=== PATIENT | male | born 1965 | race Caucasian/White ===

== ENCOUNTER → 2017-12-24 | Outpatient (CLI) | payer OTHER ==
--- NOTE | 2017-12-26 08:23 | MR ---
EXAMINATION TYPE: MR kristyn/pao wo con DATE OF EXAM: 12/24/2017 9:34 PM COMPARISON: 03/02/2014 HISTORY: Neck pain, headaches, BUE weakness, LBP Multiplanar MultiSpin echo imaging of the cervical spine was performed. C2-C3: No evidence for degenerative disc disease. No disc bulge/herniation or protrusion. No Canal stenosis. Foramina are patent bilaterally. C3-C4: Mild disc desiccation noted. Posterocentral disc bulge unchanged from prior study. Mild efface ment ventral thecal sac. No evidence for central stenosis or rayna disc herniation. Degenerative campbell ge cervical apophyseal joints with mild left foraminal encroachment. C4-C5: Mild disc desiccation. Posterocentral disc protrusion effaces the ventral thecal sac. No evide nce for central stenosis or cord contact. Mild left foraminal encroachment noted. C5-C6: Mild disc desiccation noted. Posterocentral disc bulge unchanged from prior study. Mild efface ment ventral thecal sac. No evidence for central stenosis or rayna disc herniation. Degenerative campbell ge cervical apophyseal joints with mild left foraminal encroachment. C6-C7: Mild disc desiccation noted. No disc bulge/herniation or protrusion. No Canal stenosis. Fora sasha are patent bilaterally. C7-T1: No evidence for degenerative disc disease. No disc bulge/herniation or protrusion. No Canal stenosis. Foramina are patent bilaterally. Cervical segments are intact. There is normal alignment. Cervical spinal cord is of normal signal. Craniovertebral junction relationships are within normal limits. IMPRESSION: 1. Multilevel degenerative disc disease essentially stable in appearance. 2. Disc protrusion at C4-5 as discussed. Disc bulging at C3-4 and C5-6. EXAMINATION TYPE: MR kristyn/pao wo con DATE OF EXAM: 12/24/2017 9:34 PM COMPARISON: 03/02/2014 HISTORY: Neck pain, headaches, BUE weakness, LBP Multiplanar, MultiSpin echo imaging of the lumbar spine was performed. L1-L2: Normal disc appearance without desiccation. No herniation, protrusion or disc bulging. No ca nal stenosis is present. Foramina are patent bilaterally. L2-L3: Normal disc appearance without desiccation. No herniation, protrusion or disc bulging. No ca nal stenosis is present. Foramina are patent bilaterally. L3-L4: Normal disc appearance without desiccation. No herniation, protrusion or disc bulging. No ca nal stenosis is present. Foramina are patent bilaterally. L4-L5: Moderate disc desiccation identified. Left paracentral disc protrusion resulting in mild left foraminal encroachment and mild left lateral recess stenosis. No evidence for central canal stenosis. Facet joint arthropathy detected. L5-S1: Normal disc appearance without desiccation. No herniation, protrusion or disc bulging. No ca nal stenosis is present. Foramina are patent bilaterally. Lumbar segments are intact. No paraspinal masses are identified. Conus medullaris has a normal appe arance. Ventral spondylosis noted. IMPRESSION: 1. Disc desiccation with disc protrusion at L4-5. Left lateral recess stenosis and left foraminal enc roachment.
== END | disposition home or self-care (01) ==
LOC: RADMRIMAIN 20:44
PROVIDERS: ATTEND Psychiatry & Neurology Neurology
DX: M50.21 Other cervical disc displacement, high cervical region (principal); M50.30 Other cervical disc degeneration, unspecified cervical region; M51.26 Other intervertebral disc displacement, lumbar region; M48.061 Spinal stenosis, lumbar region without neurogenic claudication
CPT/HCPCS: 72141; 72148

== ENCOUNTER 2019-03-18 23:42 | Inpatient (IN) | payer OTHER ==
--- NOTE | 2019-03-19 00:19 | ED ---
Chest Pain HPI - General Chief Complaint: Chest Pain Stated Complaint: Chest Pain x2 weeks Time Seen by Provider: 03/18/19 23:59 Source: patient Mode of arrival: ambulatory Limitations: no limitations - History of Present Illness Initial Comments: This patient is a 53-year-old man with history of diabetes and of previous coronary artery disease requiring stents. He states that over the past 2 weeks he has been having some left-sided chest pains. He states that family has finally persuaded him to come and have these evaluated. He did have some ass ociated shortness of breath with some these episodes. Patient states that his symptoms have resolved here in the emergency department. MD Complaint: chest pain Onset/Timin -: week(s) Onset: during rest Pain Location: substernal, left chest Severity: moderate Quality: sharp Consistency: intermittent, now resolved Improves With: nothing Worsens With: movement Treatments Prior to Arrival: other (Go) - Related Data Home Medications Medication Instructions Recorded Confirmed Aspirin EC [Ecotrin] 325 mg PO DAILY 08/02/14 03/19/19 INSULIN LISPRO (humaLOG) [humaLOG] 0 units SQ DIRECTED 08/02/14 03/19/19 Metoprolol Tartrate 25 mg PO BID 08/02/14 03/19/19 Simvastatin [Zocor] 40 mg PO HS 08/02/14 03/19/19 metFORMIN HCL [Glucophage] 500 mg PO QID 08/02/14 03/19/19 HYDROcodone/APAP 7.5-325MG [Spencer 1 tab PO TID PRN 05/05/16 03/19/19 7.5-325] Baclofen [Lioresal] 20 tab PO BID PRN 03/19/19 03/19/19 Furosemide [Lasix] 20 tab PO DAILY 03/19/19 03/19/19 Ibuprofen 800 tab PO Q8HR PRN 03/19/19 03/19/19 amLODIPine BESYLATE/BENAZEPRIL 1 tab PO DAILY 03/19/19 03/19/19 [amLODIPine BESYLATE/BENAZEPRIL 5-20 MG] Allergies Allergy/AdvReac Type Severity Reaction Status Date / Time No Known Allergies Allergy Verified 03/18/19 23:48 Review of Systems ROS Statement: Those systems with pertinent positive or pertinent negative responses have been documented in the HPI. ROS Other: All systems not noted in ROS Statement are negative. Constitutional: Denies: fever, chills Respiratory: Denies: cough, dyspnea Cardiovascular: Reports: chest pain, edema. Denies: palpitations, syncope Gastrointestinal: Denies: abdominal pain, nausea, vomiting Genitourinary: Denies: dysuria, hematuria Skin: Denies: rash Neurological: Denies: headache, weakness, numbness EKG Findings - EKG Comments: EKG Findings:: pos possible old anterior infarctt. sible old infarc - EKG Results: EKG: interpreted by TALITA, sinus rhythm (rate 81 BPM), normal axis - Blocks, Andale, Hypertrophy, ST Abn: Repolarization changes or abnormalities: ST or T wave suggestive of ischemia, Q- T interval prolongation ( p.m.) Past Medical History Past Medical History: Diabetes Mellitus, Hyperlipidemia, Hypertension, Myocardial Infarction ([place]) Additional Past Medical History / Comment(s): lymphedema History of Any Multi-Drug Resistant Organisms: None Reported Past Surgical History: Heart Catheterization With Stent Additional Past Surgical History / Comment(s): stripped his left leg to "kill the vein off." Past Psychological History: No Psychological Hx Reported Smoking Status: Current every day smoker Past Alcohol Use History: None Reported Past Drug Use History: None Reported - Past Family History Father Family Medical History: Cancer Additional Family Medical History / Comment(s): from lung ca Mother Family Medical History: Diabetes Mellitus Additional Family Medical History / Comment(s): from complication of diabetes General Exam Limitations: no limitations General appearance: alert, in no apparent distress Head exam: Present: atraumatic, normocephalic Eye exam: Present: normal appearance. Absent: scleral icterus, conjunctival injection ENT exam: Present: normal oropharynx Respiratory exam: Present: normal lung sounds bilaterally. Absent: respiratory distress, wheezes, rales, rhonchi, stridor, chest wall tenderness Cardiovascular Exam: Present: regular rate, normal rhythm, normal heart sounds. Absent: systolic murmur, diastolic murmur, rubs GI/Abdominal exam: Present: soft. Absent: distended, tenderness, guarding, rebound, rigid, mass Extremities exam: Present: normal inspection, normal capillary refill. Absent: pedal edema, calf tenderness Back exam: Present: normal inspection. Absent: CVA tenderness (R), CVA tenderness (L) Neurological exam: Present: alert Skin exam: Present: warm, dry, intact, normal color. 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 Chest Pain MDM - MDM Patient's 53-year-old man with diabetes and previous coronary artery disease. The patient's ECG is concerning for inferior ischemia and he does have an elevated troponin. Case was discussed with cardiology and their recommendations are incorporated. He again has been symptom-free in the emergency department. Critical Care Time Critical Care Time: Yes (35 minutes) Disposition Clinical Impression: Acute coronary syndrome Disposition: ADMITTED IP TO THIS HOSP Condition: Serious
[2019-03-19 00:29] LABS: Basophils # (A) 0.1 k/uL (0-0.2); Basophils % (A) 1 %; Eosinophils # (A) 0.2 k/uL (0-0.7); Eosinophils % (A) 2 %; HCT 42.3 % (39.0-53.0); HGB 14.4 gm/dL (13.0-17.5); Lymphocytes # (A) 2.2 k/uL (1.0-4.8); Lymphocytes % (A) 20 %; MCH 30.4 pg (25.0-35.0); MCV 89.3 fL (80.0-100.0); Mean Platelet Volume 9.3; Monocytes # (A) 0.5 k/uL (0-1.0); Monocytes % (A) 4 %; Neutrophils # (A) 8.2 k/uL (1.3-7.7); Neutrophils % (A) 73 %; Platelet Count 184 k/uL (150-450); RBC 4.74 m/uL (4.30-5.90); RDW 14.9 % (11.5-15.5); WBC 11.2 k/uL (3.8-10.6)
[2019-03-19 00:40] LABS: ALT 17 U/L (21-72); AST 16 U/L (17-59); African American GFR (CKD) >90 (>60 ml/min/1.73 sqM); Albumin 3.8 g/dL (3.5-5.0); Alkaline Phosphatase 101 U/L (38-126); Amylase 39 U/L (30-110); Anion Gap 9 mmol/L; Blood Urea Nitrogen 22 mg/dL (9-20); Calcium 9.4 mg/dL (8.4-10.2); Carbon Dioxide 25 mmol/L (22-30); Chloride 105 mmol/L (98-107); Glucose 337 mg/dL (74-99); Magnesium 1.8 mg/dL (1.6-2.3); Potassium 4.2 mmol/L (3.5-5.1); Sodium 139 mmol/L (137-145); Total Bilirubin 0.7 mg/dL (0.2-1.3); Total Protein 6.7 g/dL (6.3-8.2)
[2019-03-19 00:41] LABS: D-Dimer 0.54 mg/L FEU (<0.60)
[2019-03-19 00:42] LABS: Prothrombin Time 10.3 sec (9.0-12.0)
--- NOTE | 2019-03-19 00:45 | XR ---
EXAM: XR Chest, 2 Views CLINICAL HISTORY: ITS.REASON XR Reason: Chest Pain TECHNIQUE: Frontal and lateral views of the chest. COMPARISON: No relevant prior studies available. FINDINGS: Lungs: Unremarkable. No consolidation. Pleural space: Unremarkable. No pneumothorax. Heart: No suspicious enlargement. Mediastinum: Unremarkable. Bones/joints: No acute fracture. IMPRESSION: No acute findings.
[2019-03-19] MEDS ORDERED: ASPIRIN 81 MG PO STA (01:03)
[2019-03-19] MEDS ORDERED: NITROGLYCERIN SL TABS 0.4 MG TAB SUBLINGUAL PRN ×2 (01:03→08:39)
[2019-03-19] MEDS ORDERED: HEPARIN SODIUM,PORCINE 5,000 UNIT/ML 1 ML VIAL IV ONE (01:03)
[2019-03-19] MEDS ORDERED: NITROGLYCERIN OINT 1 INCH/GM PACKET TOPICAL STA (01:08)
[2019-03-19] MEDS ORDERED: INSULIN REGULAR 100 UNIT/ML VIAL SQ STA (01:11)
[2019-03-19] MEDS: HEPARIN SOD,PORK IN 0.45% NACL 25,000 UNIT in 0.45% NACL 1 250ML.BAG IV SCH (01:17)
[2019-03-19] MEDS: SODIUM CHLORIDE 0.9% 1,000 ML IV SCH ×2 (01:19→12:21)
[2019-03-19 02:45] LABS: Glucose,Whole Blood 300 mg/dL (75-99)
[2019-03-19 03:44] VITALS: BMI 37.4
[2019-03-19 06:22] LABS: Glucose,Whole Blood 218 mg/dL (75-99)
--- NOTE | 2019-03-19 08:13 | P.CRDCN ---
History of Present Illness Consult date: 03/19/19 Requesting physician: Alex Quick Consult reason: non-Q-wave [place] Chief complaint: Chest pain History of present illness: Is a 53-year-old gentleman with history of hypertension, diabetes, hyperlipidemia, nicotine dependence, he smokes one and a half packs of cigarettes per day, used to smoke 3 packs of cigarettes per day, history of vein stripping. He also has history of 3 stent placements, this was performed in 2008. He used to follow with Dr. Bearden in the office, he states it's been a couple of years since he has seen him because he ran out of insurance, he does have insurance now and was actually scheduled to see him in the office this Sunday. He presents to the hospital with symptoms of chest pressure and heaviness, symptoms started last Sunday, he went to see his chiropractor who felt he was having some back issues. The symptoms persisted, much worse with exertion, he did have associated shortness of breath. His chest x-ray on presentation here did not reveal any acute findings. EKG on presentation here showed a normal sinus rhythm with ST-T wave changes noted in the inferior lateral leads. Subsequent EKG shows normal sinus rhythm with ST T wave changes in the anterolateral leads. Blood pressure 160/90 with a heart rate in the 70s, 95% on room air. White blood cell count 11.2, hemoglobin 14.4, platelet count 184. D-dimer 0.54. Sodium 139, potassium 4.2, BUN 22 and creatinine 0.9. BNP level 8000, initial troponin 1.01, subsequent troponin 1.5. At the time of my examination this morning, patient does persist to complain of some chest heaviness. Much improved from his presentation here. Past Medical History Past Medical History: Diabetes Mellitus, Hyperlipidemia, Hypertension, Myocardial Infarction ([place]) Additional Past Medical History / Comment(s): lymphedema Last Myocardial Infarction Date:: 2008 History of Any Multi-Drug Resistant Organisms: None Reported Past Surgical History: Heart Catheterization With Stent Additional Past Surgical History / Comment(s): stripped his left leg to "kill the vein off." Past Anesthesia/Blood Transfusion Reactions: No Reported Reaction Date of Last Stent Placement:: 2008 Past Psychological History: No Psychological Hx Reported Smoking Status: Current every day smoker Past Alcohol Use History: None Reported Past Drug Use History: None Reported - Past Family History Father Family Medical History: Cancer Additional Family Medical History / Comment(s): from lung ca Mother Family Medical History: Diabetes Mellitus Additional Family Medical History / Comment(s): from complication of diabetes Medications and Allergies Home Medications Medication Instructions Recorded Confirmed Type Aspirin EC [Ecotrin] 325 mg PO DAILY 08/02/14 03/19/19 History Simvastatin [Zocor] 40 mg PO HS 08/02/14 03/19/19 History metFORMIN HCL [Glucophage] 1,000 mg PO BID 08/02/14 03/19/19 History HYDROcodone/APAP 7.5-325MG [Kaleva 1 tab PO TID PRN 05/05/16 03/19/19 History 7.5-325] Baclofen [Lioresal] 20 tab PO BID PRN 03/19/19 03/19/19 History Furosemide [Lasix] 20 tab PO DAILY 03/19/19 03/19/19 History Ibuprofen 800 tab PO Q8HR PRN 03/19/19 03/19/19 History Insulin Lispro [Admelog] See Protocol SQ DIRECTED 03/19/19 03/19/19 History Metoprolol Tartrate [Lopressor] 50 mg PO BID 03/19/19 03/19/19 History amLODIPine BESYLATE/BENAZEPRIL 1 cap PO DAILY 03/19/19 03/19/19 History [amLODIPine BESYLATE/BENAZEPRIL 5-20 MG] Allergies Allergy/AdvReac Type Severity Reaction Status Date / Time No Known Allergies Allergy Verified 03/19/19 07:27 Physical Exam Vitals: Vital Signs Temp Pulse Pulse Resp BP BP Pulse Ox 03/19/19 03:00 97.6 F 75 18 160/91 95 03/19/19 02:29 74 16 165/95 99 03/19/19 00:19 78 03/19/19 00:16 80 16 153/90 96 03/18/19 23:45 97.9 F 82 18 174/99 98 Intake and Output 03/18/19 03/19/19 03/19/19 22:59 06:59 14:59 Other: Voiding Method Toilet Weight 125.1 kg PHYSICAL EXAMINATION: GENERAL: 53-year-old gentleman in no acute distress at the time of my examination, complaining of mild chest pressure HEENT: Head is atraumatic, normocephalic. Pupils equal, round. Sclera anicteric. Conjunctiva are clear. Mucous membranes of the mouth are moist. Neck is supple. There is no elevated jugular venous pressure. No Carotid bruit is heard. HEART EXAMINATION: Heart S1, S2 normal. No murmur or gallop heard. CHEST EXAMINATION: Lungs reveal mild diminished air entry to bilateral bases ABDOMEN: Soft, obese, nontender. Bowel sounds are heard. No organomegaly noted. EXTREMITIES: 2+ peripheral pulses with 1+ evidence of peripheral edema and no calf tenderness noted. NEUROLOGIC patient is awake, alert and oriented 3 . . Results 03/19/19 00:14 03/19/19 00:14 Cardiac Enzymes 03/19/19 03/19/19 03/19/19 Range/Units 00:14 00:14 06:15 AST 16 L (17-59) U/L Troponin I 1.010 H* 1.590 H* (0.000-0.034) ng/mL Coagulation 03/19/19 Range/Units 00:14 PT 10.3 (9.0-12.0) sec APTT 25.0 (22.0-30.0) sec CBC 03/19/19 Range/Units 00:14 WBC 11.2 H (3.8-10.6) k/uL RBC 4.74 (4.30-5.90) m/uL Hgb 14.4 (13.0-17.5) gm/dL Hct 42.3 (39.0-53.0) % Plt Count 184 (150-450) k/uL Comprehensive Metabolic Panel 03/19/19 Range/Units 00:14 Sodium 139 (137-145) mmol/L Potassium 4.2 (3.5-5.1) mmol/L Chloride 105 (98-107) mmol/L Carbon Dioxide 25 (22-30) mmol/L BUN 22 H (9-20) mg/dL Creatinine 0.93 (0.66-1.25) mg/dL Glucose 337 H (74-99) mg/dL Calcium 9.4 (8.4-10.2) mg/dL AST 16 L (17-59) U/L ALT 17 L (21-72) U/L Alkaline Phosphatase 101 (38-126) U/L Total Protein 6.7 (6.3-8.2) g/dL Albumin 3.8 (3.5-5.0) g/dL Current Medications Generic Name Dose Route Start Last Admin Trade Name Noemy PRN Reason Stop Dose Admin Aspirin 325 mg 03/20/19 09:00 Aspirin PO DAILY CARLTON Heparin Sodium/Sodium Chloride 250 mls @ 9.616 mls/hr 03/19/19 01:15 03/19/19 01:17 25,000 unit/ Sodium Chloride IV 8 units/kg/hr .Q24H CARLTON 9.616 mls/hr Administration Protocol 8 UNITS/KG/HR Sodium Chloride 1,000 mls @ 100 mls/hr 03/19/19 01:15 03/19/19 01:19 Saline 0.9% IV 100 mls/hr .Q10H CARLTON Administration Nitroglycerin 0.4 mg 03/19/19 01:03 Nitrostat SUBLINGUAL Q5M PRN Chest Pain Intake and Output 03/18/19 03/19/19 03/19/19 22:59 06:59 14:59 Other: Voiding Method Toilet Weight 125.1 kg 03/19/19 00:14 03/19/19 00:14 EKG Interpretations (text) EKG shows a normal sinus rhythm with ST-T wave changes noted in the inferior lateral leads Assessment and Plan Plan: Assessment and plan #1 non-ST elevation [place] #2 known history of coronary artery disease with prior stent placements 2008 #3 hypertension #4 diabetes #5 hyperlipidemia #6 nicotine dependence #7 chronic edema of the lower extremities status post vein stripping Plan We will obtain a stat echocardiogram with Doppler study and repeat an EKG this morning. Start the patient on Lipitor 80 mg now and daily. Continue aspirin, Nitropaste, and IV heparin. Patient has been advised to undergo cardiac catheterization, the risks and benefits were explained to the patient in detail and he is willing to proceed. This will be performed today and further recommendations will be based on those findings and patient's clinical course. DNP note has been reviewed, I agree with a documented findings and plan of care. Patient was seen and examined.
[2019-03-19] MEDS ORDERED: ALPRAZolam 0.5 MG TAB PO PRN (08:39)
[2019-03-19] MEDS ORDERED: ATORVASTATIN 80 MG TAB PO STA (08:39)
[2019-03-19] MEDS ORDERED: SODIUM CHLORIDE 0.9% 1,000 ML in EMPTY BAG 1 BAG IV ONE (08:39)
[2019-03-19] MEDS ORDERED: ALPRAZolam 0.25 MG TAB PO PRN (08:39)
[2019-03-19] MEDS ORDERED: ASPIRIN 325 MG TAB PO STA (08:39)
[2019-03-19] MEDS: ATORVASTATIN 80 MG TAB PO SCH (08:59)
[2019-03-19] MEDS ORDERED: LIDOCAINE 1% INJ 10MG/ML (20 ML MDV) ONE (09:00)
[2019-03-19] MEDS ORDERED: VERAPAMIL 2.5 MG/ML 2 ML AMP ONE (09:00)
[2019-03-19] MEDS ORDERED: MORPHINE SULFATE 4 MG/ML SYRINGE ONE (09:24)
[2019-03-19] MEDS ORDERED: FUROSEMIDE 10 MG/ML 4 ML VIAL ONE ×3 (09:24→10:03)
[2019-03-19] MEDS ORDERED: MORPHINE SULFATE 4 MG/ML SYRINGE IV ONE (09:27)
[2019-03-19] MEDS ORDERED: FUROSEMIDE 10 MG/ML 4 ML VIAL IV ONE ×4 (09:28→10:05)
[2019-03-19] MEDS: MIDAZOLAM (PF) 2 MG/2 ML VIAL IVP ONE ×2 (09:39→09:45)
[2019-03-19] MEDS ORDERED: IV FLUID CONTINUATION 600 ML IV ONE (09:40)
[2019-03-19] MEDS: NITROGLYCERIN-D5W PMX 50 MG in DEXTROSE/WATER 1 250ML.BAG IV SCH (09:41)
[2019-03-19] MEDS ORDERED: LIDOCAINE 1% INJ 10MG/ML (20 ML MDV) SQ ONE (09:50)
[2019-03-19] MEDS ORDERED: VERAPAMIL SYRINGE (5 MG/10 ML) INTRAARTER ONE (09:52)
[2019-03-19] MEDS ORDERED: METOPROLOL TARTRATE 5 MG/5 ML VIAL IVP ONE ×2 (09:58→09:59)
[2019-03-19] MEDS ORDERED: HYDROcodone/APAP 7.5-325MG 1 EACH TAB PO PRN (10:02)
[2019-03-19] MEDS ORDERED: BIVALIRUDIN BOLUS 250 MG/50 ML IV ONE (10:05)
[2019-03-19] MEDS ORDERED: BIVALIRUDIN 250 MG in SODIUM CHLORIDE 0.9% 31 ML IV ONE (10:06)
[2019-03-19] MEDS: NITROGLYCERIN 1000MCG/10ML SYRINGE INTRACORON ONE ×2 (10:11→10:30)
[2019-03-19] MEDS ORDERED: IOPAMIDOL-370 100ML BTL INJ ONE ×2 (10:16→10:40)
[2019-03-19] MEDS ORDERED: CLOPIDOGREL 75 MG TAB ONE (10:18)
[2019-03-19] MEDS ORDERED: BIVALIRUDIN 250 MG in SODIUM CHLORIDE 0.9% 50 ML IV ONE (10:31)
[2019-03-19] MEDS ORDERED: CLOPIDOGREL 75 MG TAB PO ONE (10:39)
--- NOTE | 2019-03-19 11:25 | ECHOF ---
Referral Reason:assess lvf MEASUREMENTS -------- HEIGHT: 182.9 cm WEIGHT: 124.7 kg BP: 160/91 RVIDd: 4.5 cm (< 3.3) IVSd: 1.8 cm (0.6 - 1.1) LVIDd: 4.7 cm (3.9 - 5.3) LVPWd: 2.0 cm (0.6 - 1.1) IVSs: 2.3 cm LVIDs: 3.7 cm LVPWs: 2.0 cm LAESV Index (A-L): 36.12 ml/m Ao Diam: 2.9 cm (2.0 - 3.7) AV Cusp: 2.1 cm (1.5 - 2.6) LA Diam: 4.8 cm (2.7 - 3.8) EPSS: 0.8 cm MV E Eleazar: 1.01 m/s MV DecT: 164 ms MV A Eleazar: 0.46 m/s MV E/A Ratio: 2.21 RAP: 5.00 mmHg RVSP: 48.65 mmHg MV EF SLOPE: 94.19 mm/s (70 - 150) MV EXCURSION: 2.11 cm (> 18.000) FINDINGS -------- Sinus rhythm. This was a technically adequate study. The left ventricular size is normal. There is severe concentric left ventricular hypertrophy. Ove rall left ventricular systolic function is mild-moderately impaired with, an EF between 40 - 45 %. Mitral Doppler inflow pattern suggests diastolic filling abnormality. Basal inferior LV wall motion is hypokinetic. Mid inferior LV wall motion is hypokinetic. Mid inferoseptal LV wall motion is hypokinetic. Apical septum LV wall motion is hypokinetic. The right ventricle is severely enlarged. Left atrium is moderately dilated by volume. The right atrium is mildly enlarged. Interatrial and interventricular septum intact. The aortic valve is trileaflet and appears structurally normal. There is no evidence of aortic regu rgitation. There is no evidence of aortic stenosis. Mild mitral regurgitation is present. Mild tricuspid regurgitation present. There is moderate pulmonary hypertension. The right ventric ular systolic pressure, as measured by Doppler, is 48.65mmHg. There is no pulmonic regurgitation present. The aortic root size is normal. IVC not well visualized There is no pericardial effusion. CONCLUSIONS -------- 1. Sinus rhythm. 2. This was a technically adequate study. 3. The left ventricular size is normal. 4. There is severe concentric left ventricular hypertrophy. 5. Overall left ventricular systolic function is mild-moderately impaired with, an EF between 40 - 45 %. 6. Mitral Doppler inflow pattern suggests diastolic filling abnormality. 7. Basal inferior LV wall motion is hypokinetic. 8. Mid inferior LV wall motion is hypokinetic. 9. Mid inferoseptal LV wall motion is hypokinetic. 10. Apical septum LV wall motion is hypokinetic. 11. The right ventricle is severely enlarged. 12. Left atrium is moderately dilated by volume. 13. The right atrium is mildly enlarged. 14. Interatrial and interventricular septum intact. 15. The aortic valve is trileaflet and appears structurally normal. 16. There is no evidence of aortic regurgitation. 17. There is no evidence of aortic stenosis. 18. Mild mitral regurgitation is present. 19. Mild tricuspid regurgitation present. 20. There is moderate pulmonary hypertension. 21. The right ventricular systolic pressure, as measured by Doppler, is 48.65mmHg. 22. There is no pulmonic regurgitation present. 23. The aortic root size is normal. 24. IVC not well visualized 25. There is no pericardial effusion. DIRECTOR OF RECRUITMENT: Dia Esqueda RDCS
[2019-03-19 11:48] LABS: Glucose,Whole Blood 311 mg/dL (75-99)
[2019-03-19] MEDS ORDERED: FUROSEMIDE 10 MG/ML 4 ML VIAL IV STA (12:05)
[2019-03-19] MEDS: INSULIN ASPART (NovoLOG) 100 UNIT/ML VIAL SQ SCH ×3 (12:20→20:41)
[2019-03-19] MEDS: PANTOPRAZOLE 40 MG/10 ML VIAL IVP SCH (12:21)
--- NOTE | 2019-03-19 14:19 | P.HPIM ---
History of Present Illness H&P Date: 03/19/19 Chief Complaint: Chest pain Assessment 53-year-old obese gentleman with medical history of diabetes, hyperlipidemia, hypertension, MN, cardiac catheterization with stent, ongoing nicotine dependence-smokes 1-1/2 packs/day, decreased from 3 packs per day, lymphedema presented to the ER reporting reoccurring left-sided, substernal sharp chest pain, chest pressure, heaviness over the last 2 weeks, accompanied by a shortness of breath, occurring at rest, worsened upon exertion. Attempted to see a chiropractor for potential back pain with no relief. Chest x-ray nonacute, EKG reporting normal sinus rhythm, inferior infarct with age undetermined, ST-T wave changes of the inferior lateral leads. Subsequent EKG reporting normal sinus rhythm with ST-T wave changes in the anterior lateral leads. Troponins 1.010, 1.590. Systolic blood pressure 160/90, heart rate 70s, maintaining O2 sat in the mid 90s on room air. Afebrile, WBC 11.2 . Hemoglobin 14.4, platelets 184, d-dimer 0.54 . BNP 8000. BUN 22 creatinine 0.93. Sodium 139, potassium 4.2, magnesium 1.8 . Reports chest pressure/heaviness this morning . Cardiology consulted.Placed on heparin and nitroglycerin drips. Review of Systems ROS Statement: Those systems with pertinent positive or pertinent negative responses have been documented in the HPI. ROS Other: All systems not noted in ROS Statement are negative. Past Medical History Past Medical History: Diabetes Mellitus, Hyperlipidemia, Hypertension, Myocardial Infarction (MN) Additional Past Medical History / Comment(s): lymphedema Last Myocardial Infarction Date:: 2008 History of Any Multi-Drug Resistant Organisms: None Reported Past Surgical History: Heart Catheterization With Stent Additional Past Surgical History / Comment(s): stripped his left leg to "kill the vein off." Past Anesthesia/Blood Transfusion Reactions: No Reported Reaction Date of Last Stent Placement:: 2008 Past Psychological History: No Psychological Hx Reported Smoking Status: Current every day smoker Past Alcohol Use History: None Reported Past Drug Use History: None Reported - Past Family History Father Family Medical History: Cancer Additional Family Medical History / Comment(s): from lung ca Mother Family Medical History: Diabetes Mellitus Additional Family Medical History / Comment(s): from complication of diabetes Medications and Allergies Home Medications Medication Instructions Recorded Confirmed Type Aspirin EC [Ecotrin] 325 mg PO DAILY 08/02/14 03/19/19 History Simvastatin [Zocor] 40 mg PO HS 08/02/14 03/19/19 History metFORMIN HCL [Glucophage] 1,000 mg PO BID 08/02/14 03/19/19 History HYDROcodone/APAP 7.5-325MG [Glidden 1 tab PO TID PRN 05/05/16 03/19/19 History 7.5-325] Baclofen [Lioresal] 20 tab PO BID PRN 03/19/19 03/19/19 History Furosemide [Lasix] 20 tab PO DAILY 03/19/19 03/19/19 History Ibuprofen 800 tab PO Q8HR PRN 03/19/19 03/19/19 History Insulin Lispro [Admelog] See Protocol SQ DIRECTED 03/19/19 03/19/19 History Metoprolol Tartrate [Lopressor] 50 mg PO BID 03/19/19 03/19/19 History amLODIPine BESYLATE/BENAZEPRIL 1 cap PO DAILY 03/19/19 03/19/19 History [amLODIPine BESYLATE/BENAZEPRIL 5-20 MG] Allergies Allergy/AdvReac Type Severity Reaction Status Date / Time No Known Allergies Allergy Verified 03/19/19 07:27 Physical Exam Vitals: Vital Signs Temp Pulse Pulse Resp BP BP Pulse Ox 03/19/19 03:00 97.6 F 75 18 160/91 95 03/19/19 02:29 74 16 165/95 99 03/19/19 00:19 78 03/19/19 00:16 80 16 153/90 96 03/18/19 23:45 97.9 F 82 18 174/99 98 Intake and Output 03/18/19 03/19/19 03/19/19 22:59 06:59 14:59 Other: Voiding Method Toilet Weight 125.1 kg PHYSICAL EXAM: VITAL SIGNS: As above GENERAL: Sitting up in bed, no acute distress HEENT: Conjunctivae normal. eyes normal. NECK: No JVD. No thyroid enlargement. No LNs CARDIOVASCULAR: S1, S2 regular.. No murmur RESPIRATION: Breath sounds diminished in the bases. No rhonchi or crackles. No bronchial breathing. ABDOMEN: Soft, nontender . No guarding. no masses palpable. No ascites, No hepatosplenomegaly.Bowel sounds heard. LEGS: Chronic peripheral edema, no tenderness, no clubbing, no cyanosis, positive pulses PSYCHIATRY: Alert and oriented X3, mood and affect normal. NERVOUS SYSTEM: Cranial N 2-12 grossly normal. Moves all 4 limbs. Diffuse weakness No focal deficits. Strength and sensation grossly intact.. Skin: no lesions, no rash Lymphatic system. No LN neck axilla or groin. Results CBC & Chem 7: 03/19/19 00:14 03/19/19 00:14 Labs: Abnormal Lab Results - Last 24 Hours (Table) 03/19/19 03/19/19 03/19/19 Range/Units 00:14 00:14 00:14 WBC 11.2 H (3.8-10.6) k/uL Neutrophils # 8.2 H (1.3-7.7) k/uL BUN 22 H (9-20) mg/dL Glucose 337 H (74-99) mg/dL POC Glucose (mg/dL) (75-99) mg/dL AST 16 L (17-59) U/L ALT 17 L (21-72) U/L Troponin I 1.010 H* (0.000-0.034) ng/mL 03/19/19 03/19/19 03/19/19 Range/Units 02:37 06:15 06:21 WBC (3.8-10.6) k/uL Neutrophils # (1.3-7.7) k/uL BUN (9-20) mg/dL Glucose (74-99) mg/dL POC Glucose (mg/dL) 300 H 218 H (75-99) mg/dL AST (17-59) U/L ALT (21-72) U/L Troponin I 1.590 H* (0.000-0.034) ng/mL Thrombosis Risk Factor Assmnt - Choose All That Apply Any of the Below Risk Factors Present?: Yes Each Factor Represents 1 point: Age 41-60 years, Obesity (BMI >25), Swollen legs (current) Thrombosis Risk Factor Assessment Total Risk Factor Score: 3 Thrombosis Risk Factor Assessment Level: Moderate Risk Assessment and Plan Assessment: -Acute non-STEMI -CAD, history of MN, cardiac cath with stent -Diabetes mellitus -Hypertension -Hyperlipidemia -Ongoing nicotine dependence -Obesity, BMI 37.4 -History of vein stripping with chronic lower extremity edema Plan: Continue current medication regime ,monitoring and symptomatic treatment. Maintained on heparin and nitroglycerin drips.echo ordered .cardiology recommendations noted and appreciated.cardiac catheterization pending . Close monitoring of Accu-Cheks, hemoglobin A1c ordered. Sliding scale added to med regime. Smoking cessation reinforced. Further recommendations to follow. The impression and plan of care has been dictated as directed. : I performed a history and examination of this patient, discussed the same with the dictator. I agree with the dictator's note ,documented as a scribe. Any additional findings or plans will be noted.
[2019-03-19 16:51] LABS: Glucose,Whole Blood 204 mg/dL (75-99)
--- NOTE | 2019-03-19 17:33 | CC ---
CARDIAC CATHETERIZATION REPORT DATE OF SERVICE: March 19, 2019 PERFORMING PHYSICIAN: Gumaro Mojica M.D. PROCEDURE PERFORMED: 1. Selective right and left coronary angiogram. 2. Left heart catheterization. 3. Aspiration thrombectomy from the right coronary artery. 4. Successful stenting of the mid right coronary artery using 3.5 x 28 mm Xience JOHN with excellent angiographic results and reduction of stenosis from 100% to 0%. INDICATION: This is a 53-year-old gentleman with history of coronary artery disease, prior stenting of the RCA in the mid and distal portion, diabetes, hypertension, dyslipidemia, presented to the hospital complaining of chest discomfort. The patient was having ST changes concerning for ischemia. More importantly, he was having ongoing chest discomfort in spite of nitro drip. Because of that, a heart catheterization was advised. APPROACH: Right radial artery. COMPLICATION: None. LEVEL OF SEDATION: Moderate with sedation length of 50 minutes. PROCEDURE DESCRIPTION: After obtaining an informed consent, the patient was brought to the cardiac engineer geophysical laboratory. The right radial artery was cannulated using micropuncture technique, the micropuncture wire passed easily. Then I placed a 6-Sami sheath in the right radial artery. At that point, I did give the patient 2 mg of verapamil IA. Subsequently, I performed a right and left heart catheterization using JR4 and JL3.5 catheters. Left heart catheterization was performed using the JR4 catheter which crossed the aortic valve. Then I did pullback across aortic valve. After that I did intervene on the right coronary artery. Please see a separate paragraph for that. SELECTIVE CORONARY ANGIOGRAM: 1. The right coronary artery is a large caliber vessel. It is a dominant vessel. The RCA is occluded in the midportion. The RCA in the midportion also does have a thrombus. Distally bifurcates into PDA and PLV branches both appeared to be angiographically normal after I opened the artery up. 2. The left main is a large caliber vessel. It is angiographically normal. It bifurcates into left circumflex and left anterior descending artery. 3. The left circumflex is a large caliber vessel and it is a nondominant vessel. The proximal left circumflex appeared to be angiographically normal. The mid circumflex is angiographically normal and gives rise into the first and second obtuse marginal branches. Both appeared to be angiographically normal before the circumflex continued as a moderate caliber vessel in the AV groove. 4. The left anterior descending artery: The proximal LAD appeared to be angiographically normal. It gives rise into the first diagonal branch which has mild disease only. The mid LAD by the bifurcation of the second diagonal branch has a hazy lesion appeared to be in the range of 60% to 70%. Was most appreciated on the FUENTES caudal view. The LAD distally appeared to be angiographically normal. The second diagonal branch appeared to be angiographically normal. 5. HEMODYNAMICS: The left ventricular end-diastolic pressure was 14 mmHg without significant gradient across the aortic valve. PCI of the RCA: Anticoagulation was initiated using Angiomax. Subsequently, I did wire the RCA using a whisper wire. I did aspiration thrombectomy from the right coronary artery using an export catheter. I was unable to extract any thrombus from the right coronary artery. After that, I did balloon angioplasty using 2.5 x 15 mm balloon. I attempted advancing 3.5 x 28 mm Xience JOHN, but I was able to advance the stent in spite of using a andrea wire. At that point, I post dilated the lesion again using 3.0 mm NC balloon under high pressure. With that I was able to advance 3.5 x 28 mm Xience JOHN to the mid right coronary artery where the stent was positioned under fluoroscopy guidance and deployed under 14 atmospheres for 20 seconds. The following angiogram showed good angiographic results. I decided to post dilate the stent, so I did post dilate the stent using 3.75 mm NC balloon. The final angiogram showed great angiographic results with NILSA-3 flow in the right coronary artery and without any complication. CONCLUSION: 1. Acute [id number] myocardial infarction in this 53-year-old gentleman with history of CAD and prior stenting of the RCA. 2. Acute total occlusion of the mid right coronary artery, which seems to be in-stent occlusion with a thrombus burden. 3. Intermediate to severe disease involving the mid left anterior descending artery. 4. Elevated left ventricular end-diastolic pressure. 5. Successful stenting of the mid right coronary artery using 3.5 x 28 mm Xience with an excellent angiographic results. POSTPROCEDURE MANAGEMENT: 1. Aggressive cholesterol control. 2. Dual anti-platelet therapy. 3. Diuretics. 4. Follow up with the patient. MMODL / IJN: [id number] /
--- NOTE | 2019-03-19 17:33 | LTR ---
DATE OF SERVICE: March 19, 2019 Dr. Alex Quick [address] Dr. Quick: Mr. Ji Suarez presented to [facility] Emergency Room with chest discomfort and was diagnosed with acute non-ST elevation myocardial infarction. Because of the ongoing chest discomfort, I did perform an emergent heart catheterization on him and that revealed acute total occlusion of the right coronary artery which was opened and stented with an excellent angiographic results. I want to thank you for allowing us to participate in his care and please do not hesitate to call if you have any questions or concerns. Sincerely, MMPERNELL / ABELN: [id number] /
[2019-03-19 20:31] LABS: Glucose,Whole Blood 282 mg/dL (75-99)
[2019-03-19] MEDS: METOPROLOL TARTRATE 50 MG TAB PO SCH (20:38)
[2019-03-20] MEDS: SODIUM CHLORIDE 0.9% 1,000 ML IV SCH ×2 (02:02→09:39)
[2019-03-20] MEDS: HEPARIN SOD,PORK IN 0.45% NACL 25,000 UNIT in 0.45% NACL 1 250ML.BAG IV SCH (03:17)
[2019-03-20 06:35] LABS: Glucose,Whole Blood 257 mg/dL (75-99)
[2019-03-20] MEDS: INSULIN ASPART (NovoLOG) 100 UNIT/ML VIAL SQ SCH ×5 (06:49→20:36)
[2019-03-20 07:25] LABS: Cholesterol 107 mg/dL (<200); HDL Cholesterol 18 mg/dL (40-60); LDL Cholesterol,Calculated 52 mg/dL (0-99); Triglycerides 186 mg/dL (<150)
[2019-03-20] MEDS: NITROGLYCERIN-D5W PMX 50 MG in DEXTROSE/WATER 1 250ML.BAG IV SCH (09:40)
[2019-03-20] MEDS: ATORVASTATIN 80 MG TAB PO SCH (09:43)
[2019-03-20] MEDS: ASPIRIN 325 MG TAB PO SCH (09:43)
[2019-03-20] MEDS: METOPROLOL TARTRATE 50 MG TAB PO SCH ×2 (09:43→20:13)
[2019-03-20] MEDS: PANTOPRAZOLE 40 MG/10 ML VIAL IVP SCH (09:45)
[2019-03-20 11:30] LABS: Basophils # (A) 0.1 k/uL (0-0.2); Basophils % (A) 0 %; Eosinophils # (A) 0.1 k/uL (0-0.7); Eosinophils % (A) 1 %; HCT 43.9 % (39.0-53.0); HGB 15.1 gm/dL (13.0-17.5); Lymphocytes # (A) 1.8 k/uL (1.0-4.8); Lymphocytes % (A) 14 %; MCH 30.6 pg (25.0-35.0); MCHC 34.4 g/dL (31.0-37.0); MCV 88.9 fL (80.0-100.0); Mean Platelet Volume 9.4; Monocytes # (A) 0.5 k/uL (0-1.0); Monocytes % (A) 4 %; Neutrophils # (A) 10.5 k/uL (1.3-7.7); Neutrophils % (A) 81 %; Platelet Count 201 k/uL (150-450); RBC 4.93 m/uL (4.30-5.90); RDW 15.2 % (11.5-15.5)
[2019-03-20 11:32] LABS: ALT 18 U/L (21-72); AST 26 U/L (17-59); African American GFR (CKD) >90 (>60 ml/min/1.73 sqM); Albumin 3.9 g/dL (3.5-5.0); Alkaline Phosphatase 103 U/L (38-126); Anion Gap 13 mmol/L; Blood Urea Nitrogen 17 mg/dL (9-20); Calcium 9.1 mg/dL (8.4-10.2); Carbon Dioxide 22 mmol/L (22-30); Chloride 105 mmol/L (98-107); Glucose 234 mg/dL (74-99); Potassium 3.5 mmol/L (3.5-5.1); Sodium 140 mmol/L (137-145); Total Bilirubin 1.7 mg/dL (0.2-1.3); Total Protein 6.9 g/dL (6.3-8.2)
[2019-03-20 11:41] LABS: Glucose,Whole Blood 319 mg/dL (75-99)
--- NOTE | 2019-03-20 12:10 | P.PN ---
Subjective Progress Note Date: 03/20/19 This is a 53-year-old gentleman with history of hypertension, diabetes, hyperlipidemia, nicotine dependence, he smokes one and a half packs of cigarettes per day, used to smoke 3 packs of cigarettes per day, history of vein stripping. He also has history of 3 stent placements, this was performed in 2008. He used to follow with Dr. Bearden in the office, he states it's been a couple of years since he has seen him because he ran out of insurance, he does have insurance now and was actually scheduled to see him in the office this Sunday. He presents to the hospital with symptoms of chest pressure and heaviness, symptoms started last Sunday, he went to see his chiropractor who felt he was having some back issues. The symptoms persisted, much worse with exertion, he did have associated shortness of breath. His chest x-ray on presentation here did not reveal any acute findings. EKG on presentation here showed a normal sinus rhythm with ST-T wave changes noted in the inferior lateral leads. Subsequent EKG shows normal sinus rhythm with ST T wave changes in the anterolateral leads. Blood pressure 160/90 with a heart rate in the 70s, 95% on room air. White blood cell count 11.2, hemoglobin 14.4, platelet count 184. D-dimer 0.54. Sodium 139, potassium 4.2, BUN 22 and creatinine 0.9. BNP level 8000, initial troponin 1.01, subsequent troponin 1.5. At the time of my examination this morning, patient does persist to complain of some chest heaviness. Much improved from his presentation here. 03/20/2019 The patient was taken directly to the cardiac catheterization lab, emergently yesterday cardiac catheterization revealed an total acute occlusion of the mid right coronary artery which seemed to be an in-stent occlusion with thrombus burden, he was also found to have intermediate to severe disease involving the mid LAD. Patient had successful stenting of the mid right coronary artery with excellent results. He did go into some pulmonary edema at that time and was given a dose of IV Lasix. He was seen and examined today, denies any further chest pain, mildly short of breath. Blood pressure 148/80 with a heart rate in the 80s, 96% on room air. White blood cell count 13.0, hemoglobin 15, platelet count 201. Sodium 140, potassium 3.5, BUN 17 and creatinine 0.7. Echocardiogram with Doppler study was performed which revealed moderate impairment of the LV function of 40-45% in the inferior septal region. Blood pressure this morning is 148/80 with a heart rate in the 80s, 96% on room air. Objective - Vital Signs Vital signs: Vital Signs Temp 97.8 F 03/20/19 09:25 Pulse 81 03/20/19 09:25 Resp 18 03/20/19 09:25 BP 149/84 03/20/19 09:25 Pulse Ox 96 03/20/19 09:25 Intake & Output 03/19/19 03/20/19 03/20/19 18:59 06:59 18:59 Intake Total 471 Output Total 4700 250 250 Balance -4229 -250 -250 Weight 125.1 kg 118 kg Intake: IV 231 Oral 240 Output: Urine 4700 250 250 Other: Voiding Method Toilet Toilet Toilet - Exam PHYSICAL EXAMINATION: GENERAL: 53-year-old gentleman in no acute distress at the time of my examination, complaining of mild chest pressure HEENT: Head is atraumatic, normocephalic. Pupils equal, round. Sclera anicteric. Conjunctiva are clear. Mucous membranes of the mouth are moist. Neck is supple. There is no elevated jugular venous pressure. No Carotid bruit is heard. HEART EXAMINATION: Heart S1, S2 normal. No murmur or gallop heard. CHEST EXAMINATION: Lungs reveal mild diminished air entry to bilateral bases ABDOMEN: Soft, obese, nontender. Bowel sounds are heard. No organomegaly noted. EXTREMITIES: 2+ peripheral pulses with 1+ evidence of peripheral edema and no calf tenderness noted. Right radial site clean and dry, good distal pulse. NEUROLOGIC patient is awake, alert and oriented 3 . . - Labs CBC & Chem 7: 03/20/19 10:40 03/20/19 10:40 Labs: Abnormal Lab Results - Last 24 Hours (Table) 03/19/19 03/19/19 03/19/19 Range/Units 12:10 16:24 20:30 WBC (3.8-10.6) k/uL Neutrophils # (1.3-7.7) k/uL Glucose (74-99) mg/dL POC Glucose (mg/dL) 204 H 282 H (75-99) mg/dL Total Bilirubin (0.2-1.3) mg/dL ALT (21-72) U/L Troponin I 2.070 H* (0.000-0.034) ng/mL Triglycerides (<150) mg/dL HDL Cholesterol (40-60) mg/dL 03/20/19 03/20/19 03/20/19 Range/Units 06:11 06:33 10:40 WBC 13.0 H (3.8-10.6) k/uL Neutrophils # 10.5 H (1.3-7.7) k/uL Glucose (74-99) mg/dL POC Glucose (mg/dL) 257 H (75-99) mg/dL Total Bilirubin (0.2-1.3) mg/dL ALT (21-72) U/L Troponin I (0.000-0.034) ng/mL Triglycerides 186 H (<150) mg/dL HDL Cholesterol 18 L (40-60) mg/dL 03/20/19 03/20/19 Range/Units 10:40 11:37 WBC (3.8-10.6) k/uL Neutrophils # (1.3-7.7) k/uL Glucose 234 H (74-99) mg/dL POC Glucose (mg/dL) 319 H (75-99) mg/dL Total Bilirubin 1.7 H (0.2-1.3) mg/dL ALT 18 L (21-72) U/L Troponin I (0.000-0.034) ng/mL Triglycerides (<150) mg/dL HDL Cholesterol (40-60) mg/dL Assessment and Plan Plan: Assessment and plan #1 non-ST elevation CA, status post angioplasty and stenting of the RCA, patient was also found to have moderate disease in the LAD. #2 known history of coronary artery disease with prior stent placements 2008 #3 hypertension #4 diabetes #5 hyperlipidemia #6 nicotine dependence #7 chronic edema of the lower extremities status post vein stripping Plan We will start the patient on some Aldactone, we'll also initiate some IV Lasix today, check lytes BUN and creatinine in the morning. DNP note has been reviewed, I agree with a documented findings and plan of care. Patient was seen and examined.
[2019-03-20] MEDS: SPIRONOLACTONE 25 MG TAB PO SCH (12:31)
[2019-03-20] MEDS: CLOPIDOGREL 75 MG TAB PO SCH (12:31)
[2019-03-20] MEDS: FUROSEMIDE 10 MG/ML 4 ML VIAL IV SCH ×2 (12:32→20:14)
[2019-03-20 13:47] LABS: Hemoglobin A1C 9.1 % (4.0-6.0)
--- NOTE | 2019-03-20 16:47 | P.PN ---
Subjective Progress Note Date: 03/20/19 Assessment 53-year-old obese gentleman with medical history of diabetes, hyperlipidemia, hypertension, PA, cardiac catheterization with stent, ongoing nicotine dependence-smokes 1-1/2 packs/day, decreased from 3 packs per day, lymphedema presented to the ER reporting reoccurring left-sided, substernal paola p chest pain, chest pressure, heaviness over the last 2 weeks, accompanied by a shortness of breath, occurring at rest, worsened upon exertion. Attempted to see a chiropractor for potential back pain with no relief. Chest x-ray nonacute, EKG reporting normal sinus rhythm, inferior infarct with age undetermined, ST-T wave changes of the inferior lateral leads. Subsequent EKG reporting normal sin us rhythm with ST-T wave changes in the anterior lateral leads. Troponins 1.010, 1.590. Systolic blood pressure 160/90, heart rate 70s, maintaining O2 sat in the mid 90s on room air. Afebrile, WBC 11.2 . Hemoglobin 14.4, platelets 184, d-dimer 0.54 . BNP 8000. BUN 22 creatinine 0.93. Sodium 139, potassium 4.2, magnesium 1.8 . Reports chest pressure/heaviness this morning . Cardiology consulted.Placed on heparin and nitroglycerin drips. 03/20/2019 patient was an emergent cardiac catheterization yesterday reporting total occlusion of mid RCA, intermediate to severe disease of the mid LAD with successful stenting of the RCA. During the case patient went into flash pulmonary edema, received 160 mg of Lasix IV push. Diuresing well on Lasix IV push with 24-hour I&O reflecting a negative fluid balance. Tolerated procedure well. Echo reporting moderate impairment of LV function, EF between 40-45%, moderate pulmonary hypertension Telemetry sinus rhythm, denies chest pain, palpitations or shortness of breath.VSS. Maintaining O2 sats in the 90s on room air. Blood sugars uncontrolled, hemoglobin A1c 9.1. Patient has a insulin pump, at home-advised to bring in as soon as possible. Objective - Vital Signs Vital signs: Vital Signs Temp 98.1 F 03/20/19 11:45 Pulse 74 03/20/19 11:45 Resp 16 03/20/19 11:45 BP 138/69 03/20/19 11:45 Pulse Ox 96 03/20/19 11:45 Intake & Output 03/19/19 03/20/19 03/20/19 18:59 06:59 18:59 Intake Total 471 500 Output Total 4700 250 250 Balance -4229 -250 250 Weight 125.1 kg 118 kg Intake: IV 231 Oral 240 500 Output: Urine 4700 250 250 Other: Voiding Method Toilet Toilet Toilet - Exam VITAL SIGNS: As above GENERAL: Sitting up in bed, no acute distress HEENT: Conjunctivae normal. eyes normal. Oral mucosa moist NECK: No JVD. No thyroid enlargement. No LNs CARDIOVASCULAR: S1, S2 regular. No murmur RESPIRATION: Breath sounds diminished in the bases. No rhonchi or crackles. No wheezing .No bronchial breathing. ABDOMEN: Soft, obese, nontender . No guarding. no masses palpable. No ascites,.Bowel sounds heard. LEGS: Chronic peripheral edema, no tenderness, no clubbing, no cyanosis, positive pulses PSYCHIATRY: Alert and oriented X3, mood and affect normal. NERVOUS SYSTEM: Cranial N 2-12 grossly normal. Moves all 4 limbs. No focal deficits. Strength and sensation grossly intact.. Skin: no lesions, no rash - Labs CBC & Chem 7: 03/20/19 10:40 03/20/19 10:40 Labs: Abnormal Lab Results - Last 24 Hours (Table) 03/19/19 03/19/19 03/20/19 Range/Units 16:24 20:30 06:11 WBC (3.8-10.6) k/uL Neutrophils # (1.3-7.7) k/uL Glucose (74-99) mg/dL POC Glucose (mg/dL) 204 H 282 H (75-99) mg/dL Hemoglobin A1c 9.1 H (4.0-6.0) % Total Bilirubin (0.2-1.3) mg/dL ALT (21-72) U/L Triglycerides (<150) mg/dL HDL Cholesterol (40-60) mg/dL 03/20/19 03/20/19 03/20/19 Range/Units 06:11 06:33 10:40 WBC 13.0 H (3.8-10.6) k/uL Neutrophils # 10.5 H (1.3-7.7) k/uL Glucose (74-99) mg/dL POC Glucose (mg/dL) 257 H (75-99) mg/dL Hemoglobin A1c (4.0-6.0) % Total Bilirubin (0.2-1.3) mg/dL ALT (21-72) U/L Triglycerides 186 H (<150) mg/dL HDL Cholesterol 18 L (40-60) mg/dL 03/20/19 03/20/19 Range/Units 10:40 11:37 WBC (3.8-10.6) k/uL Neutrophils # (1.3-7.7) k/uL Glucose 234 H (74-99) mg/dL POC Glucose (mg/dL) 319 H (75-99) mg/dL Hemoglobin A1c (4.0-6.0) % Total Bilirubin 1.7 H (0.2-1.3) mg/dL ALT 18 L (21-72) U/L Triglycerides (<150) mg/dL HDL Cholesterol (40-60) mg/dL Assessment and Plan Assessment: -Acute non-STEMI, status post cardiac catheterization, stenting of the RCA. Moderate LAD disease. EF 40-45%. -CAD, history of PA, cardiac cath with stent -Diabetes mellitus, uncontrolled with hyperglycemia. Hemoglobin A1c 9.1 -Hypertension -Hyperlipidemia -Ongoing nicotine dependence -Obesity, BMI 37.4 -History of vein stripping with chronic lower extremity edema -Moderate pulmonary hypertension Plan: Continue current medication regime ,monitoring and symptomatic treatment. Diuresing as per cardiology. Advised patient to have someome bring his insulin pump in, again. Levemir insulin initiated. Smoking cessation reinforced. Increase ambulation as tolerated. Further recommendations to follow. Further recommendations to follow. The impression and plan of care has been dictated as directed. : I performed a history and examination of this patient, discussed the same with the dictator. I agree with the dictator's note ,documented as a scribe. Any additional findings or plans will be noted.
[2019-03-20 16:52] LABS: Glucose,Whole Blood 406 mg/dL (75-99)
[2019-03-20] MEDS: INSULIN DETEMIR (LEVEMIR) 100 UNIT/ML SYR SQ SCH (17:38)
[2019-03-20 20:34] LABS: Glucose,Whole Blood 184 mg/dL (75-99)
[2019-03-20] MEDS ORDERED: Potassium Replacement Protocol 1 EACH MISC MISCELLANE PRN (20:45)
[2019-03-20] MEDS ORDERED: POTASSIUM CHLORIDE ER 20 MEQ TAB.ER PO STA (20:56)
[2019-03-21 06:42] LABS: Glucose,Whole Blood 165 mg/dL (75-99)
[2019-03-21] MEDS: INSULIN DETEMIR (LEVEMIR) 100 UNIT/ML SYR SQ SCH (07:02)
[2019-03-21] MEDS: INSULIN ASPART (NovoLOG) 100 UNIT/ML VIAL SQ SCH ×4 (07:03→12:16)
[2019-03-21 07:57] LABS: HCT 42.2 % (39.0-53.0); HGB 14.6 gm/dL (13.0-17.5); MCH 30.6 pg (25.0-35.0); MCHC 34.5 g/dL (31.0-37.0); MCV 88.6 fL (80.0-100.0); Platelet Count 183 k/uL (150-450); RBC 4.76 m/uL (4.30-5.90); RDW 15.4 % (11.5-15.5); WBC 9.8 k/uL (3.8-10.6)
[2019-03-21 08:04] LABS: ALT 16 U/L (21-72); AST 20 U/L (17-59); African American GFR (CKD) >90 (>60 ml/min/1.73 sqM); Albumin 3.9 g/dL (3.5-5.0); Alkaline Phosphatase 88 U/L (38-126); Anion Gap 12 mmol/L; Blood Urea Nitrogen 20 mg/dL (9-20); Calcium 9.1 mg/dL (8.4-10.2); Carbon Dioxide 23 mmol/L (22-30); Chloride 107 mmol/L (98-107); Glucose 179 mg/dL (74-99); Potassium 3.5 mmol/L (3.5-5.1); Sodium 142 mmol/L (137-145); Total Bilirubin 1.1 mg/dL (0.2-1.3); Total Protein 6.8 g/dL (6.3-8.2)
[2019-03-21] MEDS: SPIRONOLACTONE 25 MG TAB PO SCH (08:43)
[2019-03-21] MEDS: ATORVASTATIN 80 MG TAB PO SCH (08:43)
[2019-03-21] MEDS: PANTOPRAZOLE 40 MG/10 ML VIAL IVP SCH (08:43)
[2019-03-21] MEDS: ASPIRIN 325 MG TAB PO SCH (08:43)
[2019-03-21] MEDS: METOPROLOL TARTRATE 50 MG TAB PO SCH (08:43)
[2019-03-21] MEDS: CLOPIDOGREL 75 MG TAB PO SCH (08:43)
[2019-03-21] MEDS: FUROSEMIDE 10 MG/ML 4 ML VIAL IV SCH (08:44)
[2019-03-21 09:29] VITALS: BP 118/69; PULSE 81; RESP 16; TEMP 98.2
--- NOTE | 2019-03-21 10:48 | P.PN ---
Subjective Progress Note Date: 03/21/19 Principal diagnosis: Acute coronary syndrome This is a pleasant 53-year-old gentleman with history of CAD and prior stenting of the RCA as well as hypertension and dyslipidemia and diabetes presented to the hospital with chest discomfort and ruled in for acute non-STEMI. He und erwent a heart catheterization and was found to have occluded right coronary artery which was stented. The echo revealed impairment in the LV function to EF about 40-45%. On follow-up with the patient today, 03/21/2019, he is asymptomatic from a cardiovascular standpoint of view and he is also euvolemic on examination. From a cardiovascular standpoint of view, he might be able to be discharged home. Objective - Vital Signs Vital signs: Vital Signs Temp 98.2 F 03/21/19 07:50 Pulse 81 03/21/19 07:50 Resp 16 03/21/19 07:50 BP 118/69 03/21/19 07:50 Pulse Ox 96 03/21/19 07:50 Intake & Output 03/20/19 03/21/19 03/21/19 18:59 06:59 18:59 Intake Total 1000 Output Total 250 600 Balance 750 -600 Intake: Oral 1000 Output: Urine 250 600 Other: Voiding Method Toilet Toilet - Constitutional General appearance: Present: no acute distress - Respiratory Respiratory: bilateral: CTA - Cardiovascular Rhythm: regular Heart sounds: normal: S1, S2 - Labs CBC & Chem 7: 03/21/19 07:17 03/21/19 07:17 Labs: Abnormal Lab Results - Last 24 Hours (Table) 03/20/19 03/20/19 03/20/19 Range/Units 06:11 10:40 10:40 WBC 13.0 H (3.8-10.6) k/uL Neutrophils # 10.5 H (1.3-7.7) k/uL Glucose 234 H (74-99) mg/dL POC Glucose (mg/dL) (75-99) mg/dL Hemoglobin A1c 9.1 H (4.0-6.0) % Total Bilirubin 1.7 H (0.2-1.3) mg/dL ALT 18 L (21-72) U/L 03/20/19 03/20/19 03/20/19 Range/Units 11:37 16:50 20:32 WBC (3.8-10.6) k/uL Neutrophils # (1.3-7.7) k/uL Glucose (74-99) mg/dL POC Glucose (mg/dL) 319 H 406 H 184 H (75-99) mg/dL Hemoglobin A1c (4.0-6.0) % Total Bilirubin (0.2-1.3) mg/dL ALT (21-72) U/L 03/21/19 03/21/19 Range/Units 06:41 07:17 WBC (3.8-10.6) k/uL Neutrophils # (1.3-7.7) k/uL Glucose 179 H (74-99) mg/dL POC Glucose (mg/dL) 165 H (75-99) mg/dL Hemoglobin A1c (4.0-6.0) % Total Bilirubin (0.2-1.3) mg/dL ALT 16 L (21-72) U/L Assessment and Plan Assessment: Assessment #1 acute non-ST elevation PA #2 status post a stenting of the RCA #3 ischemic cardiomyopathy #4 multiple comorbid conditions including diabetes, hypertension, dyslipidemia Plan #1 continue the current medical regimen including dual antiplatelet therapy #2 the patient can be discharged home
[2019-03-21 12:05] LABS: Glucose,Whole Blood 151 mg/dL (75-99)
--- NOTE | 2019-03-21 12:11 | P.DS ---
Providers Date of admission: 03/19/19 01:03 Expected date of discharge: 03/21/19 Attending physician: Alex Quick Consults: 03/19/19 01:03 Consult Physician Urgent Consulting Provider: Gumaro Mojica Consult Reason/Comments: Acute coronary syndrome Do you want consulting provider notified?: Yes Primary care physician: Alex Quick [facility] Course: Final Diagnoses: -Acute non-STEMI, status post cardiac catheterization, stenting of the RCA. Moderate LAD disease. EF 40-45%. -CAD, history of DC, cardiac cath with stent -Diabetes mellitus, uncontrolled with hyperglycemia. Hemoglobin A1c 9.1 -Hypertension -Hyperlipidemia -Ongoing nicotine dependence -Obesity, BMI 37.4 -History of vein stripping with chronic lower extremity edema -Moderate pulmonary hypertension Hospital Course:Assessment 53-year-old obese gentleman with medical history of diabetes, hyperlipidemia, hypertension, DC, cardiac catheterization with stent, ongoing nicotine dependence-smokes 1-1/2 packs/day, decreased from 3 packs per day, lymphedema presented to the ER reporting reoccurring left-sided, substernal sharp chest pain, chest pressure, heaviness over the last 2 weeks, accompanied by a shortness of breath, occurring at rest, worsened upon exertion. Attempted to see a chiropractor for potential back pain with no relief. Chest x-ray nonacute, EKG reporting normal sinus rhythm, inferior infarct with age undetermined, ST-T wave changes of the inferior lateral leads. Subsequent EKG reporting normal sinus rhythm with ST-T wave changes in the anterior lateral leads. Troponins 1.010, 1.590. Systolic blood pressure 160/90, heart rate 70s, maintaining O2 sat in the mid 90s on room air. Afebrile, WBC 11.2 . Hemoglobin 14.4, platelets 184, d-dimer 0.54 . BNP 8000. BUN 22 creatinine 0.93. Sodium 139, potassium 4.2, magnesium 1.8 . Reports chest pressure/heaviness this morning . Cardiology consulted.Placed on heparin and nitroglycerin drips. 03/20/2019 patient was an emergent cardiac catheterization yesterday reporting total occlusion of mid RCA, intermediate to severe disease of the mid LAD with successful stenting of the RCA. During the case patient went into flash pulmonary edema, received 160 mg of Lasix IV push. Diuresing well on Lasix IV push with 24-hour I&O reflecting a negative fluid balance. Tolerated procedure well. Echo reporting moderate impairment of LV function, EF between 40-45%, moderate pulmonary hypertension Telemetry sinus rhythm, denies chest pain, palpitations or shortness of breath.VSS. Maintaining O2 sats in the 90s on room air. Blood sugars uncontrolled, hemoglobin A1c 9.1. Patient has a insulin pump, at home-advised to bring in as soon as possible. Insulin pump brought in this morning, settings from PCP, pump set up by hospital educator and patient. Pump to be initiated tomorrow as patient already received his long-acting insulin today. Significant clinical improvement. Cleared by cardiology for discharge. Patient is being discharged home in a stable condition with guarded prognosis. - Exam GENERAL: Alert and oriented 3, no acute distress CARDIOVASCULAR: S1, S2 regular. No murmur RESPIRATION: Breath sounds diminished in the bases. No rhonchi or crackles. No wheezing . ABDOMEN: Soft, obese, nontender . No guarding. no masses palpable.Bowel sounds heard. LEGS: Chronic peripheral edema, no tenderness, no clubbing, no cyanosis, positive pulses. NERVOUS SYSTEM: No focal deficits. Strength and sensation grossly intact. The impression and plan of care has been dictated as directed. : I performed a history and examination of this patient, discussed the same with the dictator. I agree with the dictator's note ,documented as a scribe. Any additional findings or plans will be noted. Time Taken: 35 min. Patient Condition at Discharge: Stable Plan - Discharge Summary New Discharge Prescriptions: New Spironolactone [Aldactone] 25 mg PO DAILY #30 tab Atorvastatin [Lipitor] 80 mg PO DAILY #30 tab Insulin Aspart (For Pump) [NovoLOG (For Pump)] 0.01 unit SQ-PUMP CONTINUOUS #1 vial Clopidogrel [Plavix] 75 mg PO DAILY #30 tab Continue Aspirin EC [Ecotrin] 325 mg PO DAILY metFORMIN HCL [Glucophage] 1,000 mg PO BID HYDROcodone/APAP 7.5-325MG [[place] 7.5-325] 1 tab PO TID PRN PRN Reason: Pain Furosemide [Lasix] 20 tab PO DAILY Baclofen [Lioresal] 20 tab PO BID PRN PRN Reason: Muscle Spasm Insulin Lispro [Admelog] See Protocol SQ DIRECTED Metoprolol Tartrate [Lopressor] 50 mg PO BID Discontinued Simvastatin [Zocor] 40 mg PO HS amLODIPine BESYLATE/BENAZEPRIL [amLODIPine BESYLATE/BENAZEPRIL 5-20 MG] 1 cap PO DAILY Ibuprofen 800 tab PO Q8HR PRN PRN Reason: Pain Discharge Medication List Aspirin EC [Ecotrin] 325 mg PO DAILY 08/02/14 [History] metFORMIN HCL [Glucophage] 1,000 mg PO BID 08/02/14 [History] HYDROcodone/APAP 7.5-325MG [[place] 7.5-325] 1 tab PO TID PRN 05/05/16 [History] Baclofen [Lioresal] 20 tab PO BID PRN 03/19/19 [History] Furosemide [Lasix] 20 tab PO DAILY 03/19/19 [History] Insulin Lispro [Admelog] See Protocol SQ DIRECTED 03/19/19 [History] Metoprolol Tartrate [Lopressor] 50 mg PO BID 03/19/19 [History] Atorvastatin [Lipitor] 80 mg PO DAILY #30 tab 03/21/19 [Rx] Clopidogrel [Plavix] 75 mg PO DAILY #30 tab 03/21/19 [Rx] Insulin Aspart (For Pump) [NovoLOG (For Pump)] 0.01 unit SQ-PUMP CONTINUOUS #1 vial 03/21/19 [Rx] Spironolactone [Aldactone] 25 mg PO DAILY #30 tab 03/21/19 [Rx] Follow up Appointment(s)/Referral(s): Gumaro Mojica MD [STAFF PHYSICIAN] - 03/28/19 3:15 pm (Sunday) Alex Quick DO [Primary Care Provider] - 03/26/19 11:00 am (Sunday) Patient Instructions/Handouts: *[facility] - After Heart Catheterization - [employer] Teacher Instructions, Left Heart Catheterization (DC), How to Stop Smoking (DC), Heart Healthy Diet (DC) Activity/Diet/Wound Care/Special Instructions: Insulin pump to be applied tomorrow, recently receiving long-acting insulin. Pump settings obtained from PCP, set up with assistant health educator at bedside. Patient verbalizes understanding and using pump, and verbalizes he will apply tomorrow.
== END 2019-03-21 13:19 | disposition home or self-care (01) | DRG 247 ==
LOC: EC 23:42 → 3SCARD 03-19 01:03
PROVIDERS: ADMIT Family Medicine; ATTEND Family Medicine
PROC: B2151ZZ Fluoroscopy of Left Heart using Low Osmolar Contrast (ICD-10-PCS; principal; 2019-03-19 09:06)
PROC: 4A023N7 Measurement of Cardiac Sampling and Pressure, Left Heart, Percutaneous Approach (ICD-10-PCS; principal; 2019-03-19 09:06)
PROC: 02C03ZZ Extirpation of Matter from Coronary Artery, One Artery, Percutaneous Approach (ICD-10-PCS; principal; 2019-03-19 09:06)
PROC: B2111ZZ Fluoroscopy of Multiple Coronary Arteries using Low Osmolar Contrast (ICD-10-PCS; principal; 2019-03-19 09:06)
PROC: 027034Z Dilation of Coronary Artery, One Artery with Drug-eluting Intraluminal Device, Percutaneous Approach (ICD-10-PCS; principal; 2019-03-19 09:06)
DX: I21.4 Non-ST elevation (NSTEMI) myocardial infarction (principal); J81.1 Chronic pulmonary edema; I25.10 Atherosclerotic heart disease of native coronary artery without angina pectoris; E11.65 Type 2 diabetes mellitus with hyperglycemia; E66.9 Obesity, unspecified; E78.5 Hyperlipidemia, unspecified; F17.200 Nicotine dependence, unspecified, uncomplicated; I10 Essential (primary) hypertension; I25.2 Old myocardial infarction; I25.5 Ischemic cardiomyopathy; I27.20 Pulmonary hypertension, unspecified; Z68.37 Body mass index [BMI] 37.0-37.9, adult; Z79.4 Long term (current) use of insulin; Z79.82 Long term (current) use of aspirin; Z79.899 Other long term (current) drug therapy; Z80.1 Family history of malignant neoplasm of trachea, bronchus and lung; Z83.3 Family history of diabetes mellitus; Z95.5 Presence of coronary angioplasty implant and graft; Z79.891 Long term (current) use of opiate analgesic
CPT/HCPCS: 36415; 71046; 80053; 80061; 82150; 83036; 83690; 83735; 83880; 84484; 85025; 85027; 85379; 85610; 85730; 93005; 93306; 93458; 94660; 96365; 96376; 99291; C1874

== ENCOUNTER 2019-04-06 16:19 | Emergency (ER) | payer OTHER ==
[2019-04-06 16:23] VITALS: RESP 18
[2019-04-06 17:37] LABS: Basophils # (A) 0.1 k/uL (0-0.2); Basophils % (A) 1 %; Eosinophils # (A) 0.2 k/uL (0-0.7); Eosinophils % (A) 2 %; HCT 40.4 % (39.0-53.0); HGB 13.7 gm/dL (13.0-17.5); Lymphocytes # (A) 1.8 k/uL (1.0-4.8); Lymphocytes % (A) 19 %; MCH 29.9 pg (25.0-35.0); Mean Platelet Volume 9.1; Monocytes # (A) 0.4 k/uL (0-1.0); Monocytes % (A) 4 %; Neutrophils # (A) 7.1 k/uL (1.3-7.7); Neutrophils % (A) 75 %; Platelet Count 185 k/uL (150-450); RBC 4.59 m/uL (4.30-5.90); RDW 14.2 % (11.5-15.5); WBC 9.5 k/uL (3.8-10.6)
--- NOTE | 2019-04-06 17:40 | XR ---
EXAMINATION TYPE: XR chest 2V DATE OF EXAM: 04/06/2019 COMPARISON: 03/19/2019 HISTORY: 53-year-old male with chest pain TECHNIQUE: PA and lateral views FINDINGS: Heart size is stable, borderline to mildly enlarged. Mild diffuse interstitial prominence is unchange d as well. No consolidation or pleural effusion. IMPRESSION: 1. Stable borderline to mild cardiomegaly. 2. Chronic changes, possible bronchitis or asthma.
[2019-04-06 17:49] LABS: ALT 23 U/L (21-72); AST 19 U/L (17-59); African American GFR (CKD) >90 (>60 ml/min/1.73 sqM); Albumin 3.7 g/dL (3.5-5.0); Alkaline Phosphatase 82 U/L (38-126); Anion Gap 9 mmol/L; Blood Urea Nitrogen 19 mg/dL (9-20); Calcium 8.9 mg/dL (8.4-10.2); Carbon Dioxide 26 mmol/L (22-30); Chloride 104 mmol/L (98-107); Glucose 256 mg/dL (74-99); Magnesium 1.6 mg/dL (1.6-2.3); Potassium 4.1 mmol/L (3.5-5.1); Sodium 139 mmol/L (137-145); Total Bilirubin 0.6 mg/dL (0.2-1.3); Total Protein 6.6 g/dL (6.3-8.2)
[2019-04-06 17:51] LABS: INR 0.9 (<1.2); Partial Thromboplastin Time 24.6 sec (22.0-30.0); Prothrombin Time 9.8 sec (9.0-12.0)
--- NOTE | 2019-04-06 18:56 | ED ---
Chest Pain HPI - General Chief Complaint: Chest Pain Stated Complaint: chest burning/pain & arm numbness Time Seen by Provider: 04/06/19 16:25 Source: patient Mode of arrival: wheelchair Limitations: no limitations - History of Present Illness Initial Comments: The patient is a 83-year-old who presents to the emergency room with reported chest pain and left arm numbness that has been present since the patient had a cath. States he came into the hospital on March 19 for chest pain and vomiting. The patient had an elevated troponin and a cath was performed. At that time the patient had 2 stents placed. He has a previous history of an ND where he had 2 previous stents placed. Procedure was performed by Dr. Mojica. The patient's was placed on Plavix. States he's been taking the medications as directed. Since the procedure the patient reports that he's had a burning sensation in his chest. He has also had some numbness of his left upper ext remity. He did follow-up Dr. Mojica in office and informed him of the symptoms. Dr. Mojica reports that it was likely secondary to the cardiac cath. The patient reportedly had disease in 2 vessels. The one vessel was stented. The other vessel had 60% occlusion however this was to be taken care of at a later date. The patient denies any shortness of breath. Admits to improvement in his breathing and he states that he believes his congestive heart failure is better under control. He reports decreased swelling in his lower extremities. States he can lay flat to sleep. He denies ripping or tearing sensation to his back. No history of DVTs or PEs. Denies a pleuritic chest pain. Denies abdominal pain. No nausea, vomiting or diaphoresis. Denies any new chest pain. He attempted to call Dr. Mojica's office today to let him know that he was still having persistent symptoms. Dr. Mojica did not call back and therefore he came into the emergency room for evaluation. There are no other alleviating, precipitating or modifying factors - Related Data Home Medications Medication Instructions Recorded Confirmed Aspirin EC [Ecotrin] 325 mg PO DAILY 08/02/14 04/06/19 metFORMIN HCL [Glucophage] 1,000 mg PO BID 08/02/14 04/06/19 HYDROcodone/APAP 7.5-325MG [[place] 1 tab PO TID PRN 05/05/16 04/06/19 7.5-325] Baclofen [Lioresal] 20 tab PO BID PRN 03/19/19 04/06/19 Furosemide [Lasix] 40 mg PO DAILY 03/19/19 04/06/19 Metoprolol Tartrate [Lopressor] 50 mg PO BID 03/19/19 04/06/19 Atorvastatin [Lipitor] 80 mg PO HS 04/06/19 04/06/19 Insulin Lispro [Admelog] See Protocol SQ CONTINUOUS 04/06/19 04/06/19 Potassium Gluconate 99 mg PO HS 04/06/19 04/06/19 Previous Rx's Medication Instructions Recorded Clopidogrel [Plavix] 75 mg PO DAILY #30 tab 03/21/19 Spironolactone [Aldactone] 25 mg PO DAILY #30 tab 03/21/19 Allergies Allergy/AdvReac Type Severity Reaction Status Date / Time No Known Allergies Allergy Verified 04/06/19 16:56 Review of Systems ROS Statement: Those systems with pertinent positive or pertinent negative responses have been documented in the HPI. ROS Other: All systems not noted in ROS Statement are negative. EKG Findings - EKG Comments: EKG Findings:: EKG demonstrates a ventricular rate of 75. [place] interval 158. QRS E4. QTC 498. There are diffuse T-wave inversions in leads 2, 3, aVF, V3 through V6. This is compared to the patient's previous EKG and appears similar. Past Medical History Past Medical History: Diabetes Mellitus, Hyperlipidemia, Hypertension, M yocardial Infarction (ND) Additional Past Medical History / Comment(s): lymphedema Last Myocardial Infarction Date:: 2008 History of Any Multi-Drug Resistant Organisms: None Reported Past Surgical History: Heart Catheterization With Stent Additional Past Surgical History / Comment(s): stripped his left leg to "kill the vein off." Past Anesthesia/Blood Transfusion Reactions: No Reported Reaction Date of Last Stent Placement:: 2008 Past Psychological History: No Psychological Hx Reported Smoking Status: Current every day smoker Past Alcohol Use History: None Reported Past Drug Use History: None Reported - Past Family History Father Family Medical History: Cancer Additional Family Medical History / Comment(s): from lung ca Mother Family Medical History: Diabetes Mellitus Additional Family Medical History / Comment(s): from complication of diabetes General Exam Limitations: no limitations General appearance: alert, in no apparent distress Head exam: Present: atraumatic, normocephalic, normal inspection Eye exam: Present: normal appearance, PERRL, EOMI. Absent: scleral icterus, conjunctival injection, periorbital swelling ENT exam: Present: normal exam, mucous membranes moist Neck exam: Present: normal inspection. Absent: tenderness, meningismus, lymphadenopathy Respiratory exam: Present: normal lung sounds bilaterally. Absent: respiratory distress, wheezes, rales, rhonchi, stridor Cardiovascular Exam: Present: regular rate, normal rhythm, normal heart sounds. Absent: systolic murmur, diastolic murmur, rubs, gallop, clicks GI/Abdominal exam: Present: soft, normal bowel sounds. Absent: distended, tenderness, guarding, rebound, rigid Extremities exam: Present: normal inspection, full ROM, normal capillary refill, pedal edema. Absent: tenderness, joint swelling, calf tenderness Back exam: Present: normal inspection Neurological exam: Present: alert, oriented X3, CN II-XII intact Psychiatric exam: Present: normal affect, normal mood Skin exam: Present: warm, dry, intact, normal color. Absent: rash Course Vital Signs 04/06/19 04/06/19 04/06/19 16:21 17:55 19:17 Temperature 97.8 F 97.9 F Pulse Rate 78 73 78 Respiratory 18 18 18 Rate Blood Pressure 153/88 123/71 106/76 O2 Sat by Pulse 99 98 99 Oximetry Chest Pain MDM - Differential Diagnosis ACS, Pleurisy-Other - MDM Upon arrival the patient is placed into room 2. He is hooked up to continuous pulse ox and cardiac monitoring. A 12-lead EKG is performed and the patient. There are deep inverted T waves in the inferior leads as well as the lateral leads. This is compared to the patient's previous EKG and appear similar. The patient reports that he is pain-free at this time. Because of the patient's persistent chest pain I did recommend laboratory studies and a chest x-ray. Upon return of the results the patient does have a troponin of 0.06. This is compared to the patient's previous and is significantly trending down. I discussed this information with the patient. I did recommend hospital admission because the patient's extensive cardiac history however he refused. He states he is pain-free at this time and since he has had this persistent symptoms since his procedure that he will follow up with Dr. Redding in office. He does have an appointment on Sunday. At this time the patient will be discharged home. He is to continue all his home medications. He is to call his criminal defense lawyer's office on Sunday and asked for a sooner appointment. The patient has any new or worsening symptoms or does agree to hospitalization admission, he should return to the emergency room. Patient was then discharged home in stable condition Disposition Clinical Impression: Chest pain Disposition: HOME SELF-CARE Condition: Stable Instructions (If sedation given, give patient instructions): Chest Pain (ED) Additional Instructions: Please follow-up with Dr. Redding at your scheduled appointment on Sunday. Return to the emergency department for any new or worsening symptoms. Is patient prescribed a controlled substance at d/c from ED?: No Referrals: Alex Quick DO [Primary Care Provider] - 1-2 days Gumaro Mojica MD [STAFF PHYSICIAN] - 1-2 days Time of Disposition: 18:56
[2019-04-06 19:18] VITALS: BP 106/76; PULSE 78; TEMP 97.9
== END 2019-04-06 19:17 | disposition home or self-care (01) ==
LOC: EC 16:19
DX: R07.9 Chest pain, unspecified (principal); R20.0 Anesthesia of skin; E11.9 Type 2 diabetes mellitus without complications; E78.5 Hyperlipidemia, unspecified; I10 Essential (primary) hypertension; F17.200 Nicotine dependence, unspecified, uncomplicated; I25.2 Old myocardial infarction; Z95.5 Presence of coronary angioplasty implant and graft; Z53.29 Procedure and treatment not carried out because of patient's decision for other reasons; Z79.82 Long term (current) use of aspirin; Z79.4 Long term (current) use of insulin; Z79.899 Other long term (current) drug therapy
CPT/HCPCS: 36415; 71046; 80053; 83735; 83880; 84484; 85025; 85610; 85730; 93005; 99285

== ENCOUNTER → 2020-03-08 | Day surgery (SDC) | payer OTHER ==
[2020-03-02 17:17] VITALS: BMI 36.6
[~2020-03-08] MED LIST: ALPRAZolam 0.25 MG TAB PO PRN; ALPRAZolam 0.5 MG TAB PO PRN; ASPIRIN 325 MG TAB PO STA; ATORVASTATIN 80 MG TAB PO SCH; ATORVASTATIN 80 MG TAB PO STA; BACLOFEN 10 MG TAB PO PRN; CLOPIDOGREL 75 MG TAB PO SCH; FUROSEMIDE 20 MG TAB PO SCH; HEPARIN SODIUM 1,000 UN/ML (10ML VL) IV ONE; HEPARIN SODIUM 1,000 UN/ML (10ML VL) ONE; HYDROcodone/APAP 7.5-325MG 1 EACH TAB PO PRN; INSULIN ASPART (NovoLOG) 100 UNIT/ML VIAL SQ SCH; IOPAMIDOL-370 100ML BTL INJ ONE; ISOSORBIDE MONONITRATE ER 30 MG TAB.ER.24H PO SCH; LIDOCAINE 1% INJ 10MG/ML (20 ML MDV) ONE; LIDOCAINE 1% INJ 10MG/ML (20 ML MDV) SQ ONE; METOPROLOL TARTRATE 50 MG TAB PO SCH; MIDAZOLAM 2 MG/2 ML VIAL IVP ONE; NITROGLYCERIN SL TABS 0.4 MG TAB SUBLINGUAL PRN; NON FORMULARY DRUG (Aspirin Ec 81 MG) PO SCH; NON FORMULARY DRUG (Potassium Gluconate [Potassium Gluconate] 99 MG) PO SCH; RX INFO: IV CONTRAST WAS GIVEN 1 EACH MISC MISCELLANE PRN; SODIUM CHLORIDE 0.9% 1,000 ML IV SCH; SODIUM CHLORIDE 0.9% 1,000 ML in EMPTY BAG 1 BAG IV ONE; SPIRONOLACTONE 25 MG TAB PO SCH; VERAPAMIL 2.5 MG/ML 2 ML AMP ONE; VERAPAMIL SYRINGE (5 MG/10 ML) INTRAARTER ONE
[2020-03-08 07:17] LABS: Glucose,Whole Blood 201 mg/dL (75-99)
[2020-03-08 07:18] VITALS: RESP 18; TEMP 98.5
[2020-03-08 07:25] LABS: Basophils # (A) 0.1 k/uL (0-0.2); Basophils % (A) 1 %; Eosinophils # (A) 0.2 k/uL (0-0.7); Eosinophils % (A) 2 %; HCT 41.2 % (39.0-53.0); HGB 13.9 gm/dL (13.0-17.5); Lymphocytes # (A) 2.6 k/uL (1.0-4.8); Lymphocytes % (A) 27 %; MCH 30.4 pg (25.0-35.0); MCHC 33.8 g/dL (31.0-37.0); MCV 89.9 fL (80.0-100.0); Mean Platelet Volume 8.9; Monocytes # (A) 0.4 k/uL (0-1.0); Monocytes % (A) 4 %; Neutrophils # (A) 6.2 k/uL (1.3-7.7); Neutrophils % (A) 65 %; Platelet Count 167 k/uL (150-450); RBC 4.58 m/uL (4.30-5.90); RDW 13.2 % (11.5-15.5); WBC 9.4 k/uL (3.8-10.6)
[2020-03-08 07:44] LABS: African American GFR (CKD) >90 (>60 ml/min/1.73 sqM); Anion Gap 8 mmol/L; Blood Urea Nitrogen 18 mg/dL (9-20); Calcium 9.1 mg/dL (8.4-10.2); Carbon Dioxide 27 mmol/L (22-30); Chloride 104 mmol/L (98-107); Glucose 192 mg/dL (74-99); Non-African American GFR(CKD) 89 (>60 ml/min/1.73 sqM); Potassium 3.8 mmol/L (3.5-5.1); Sodium 139 mmol/L (137-145)
--- NOTE | 2020-03-08 08:57 | LTR ---
DATE OF SERVICE: 03/08/2020 RE: Ji Suarez Dear Dr. Quick; Mr. Ji Suarez underwent today a heart catheterization for classical symptoms of angina. The heart catheterization revealed critical disease involving the mid LAD by the bifurcation of a large diagonal branch. I am going to obtain a surgical consult for the evaluation of CABG. I want to thank you for allowing us to participate in his care and please do not hesitate to call if you have any question or concern. Sincerely, MD [place] Alas / BERNICE: [phone] /
--- NOTE | 2020-03-08 09:21 | CC ---
CARDIAC CATHETERIZATION REPORT DATE OF SERVICE: 03/08/2020 PERFORMING PHYSICIAN: Gumaro Mojica MD. PROCEDURE PERFORMED: 1. Selective right and left coronary angiogram. 2. Left heart catheterization. INDICATION: This is a 54-year-old gentleman with coronary artery disease and prior stenting of the RCA in the setting of acute coronary syndrome as well as history of diabetes, hypertension, dyslipidemia, and ischemic cardiomyopathy, was experiencing symptoms of chest discomfort and shortness of breath with exertion concerning for severe underlying coronary artery disease. He is known to have intermediate to severe disease involving the left anterior descending artery. Because the symptoms are concerning for angina. I decided to pursue with coronary angiogram. APPROACH: Right common femoral artery. COMPLICATION: None. LEVEL OF SEDATION: Moderate with sedation length of 17 minutes. PROCEDURE DESCRIPTION: After obtaining informed consent, the patient was brought to the cardiac research laboratory specialist. The right radial artery was cannulated using micropuncture technique, the micropuncture wire passed easily, then I placed a 6-[place] sheath at the right radial artery. I did give the patient 2 mg of verapamil IA and 10,000 units of heparin IV. Selective right and left coronary angiogram performed using JR4 and JL3.5 catheters. Left heart catheterization was performed using the JR4 catheter which crossed the aortic valve, then I did pullback across the valve. The procedure was completed without any complication. SELECTIVE CORONARY ANGIOGRAM: 1. The RCA is a large caliber vessel and it is a dominant vessel. The proximal RCA appeared to have mild disease only. The mid RCA is stented and the stent is patent. 2. The left main is angiographically normal. It bifurcates into LCX and LAD. 3. The LCX is a large caliber vessel and is a nondominant vessel. The LCX appeared to be angiographically normal. It gives rise into first and second diagonal branches, both appeared to be angiographically normal. 4. The LAD. The proximal LAD appeared to be normal. It gives rise into a large diagonal branch which seems to be angiographically normal. The mid LAD by the bifurcation of a large diagonal branch has a tight lesion, appeared to be in the range of 99.9%. The LAD distally appeared to be angiographically normal. 5. HEMODYNAMICS: The LVEDP was about 10 to 12 mmHg without significant gradient across the aortic valve. CONCLUSION: 1. Patent stent in the mid RCA. 2. Normal left circumflex coronary artery. 3. Normal left main coronary artery. 4. Critical complex lesion involving the mid LAD appeared to be in the range of 99.9%. POSTPROCEDURE MANAGEMENT: 1. Continue the current medical regimen. 2. Obtain a surgical consult for the evaluation of CABG. 3. Follow up with the patient. [place] / BERNICE: [phone] /
--- NOTE | 2020-03-08 11:18 | US ---
EXAMINATION TYPE: US carotid duplex BILAT DATE OF EXAM: 03/08/2020 COMPARISON: NONE CLINICAL HISTORY: preop cabg. PreOP EXAM MEASUREMENTS: RIGHT: Peak Systolic Velocity (PSV) cm/sec ----- Right CCA: 94.8 ----- Right ICA: 172 ----- Right ECA: 182.0 ICA/CCA ratio: 1.8 RIGHT: End Diastole cm/sec ----- Right CCA: 18.8 ----- Right ICA: 28.7 ----- Right ECA: 0.0 LEFT: Peak Systolic Velocity (PSV) cm/sec ----- Left CCA: 95.1 ----- Left ICA: 130.0 ----- Left ECA: 26.2 ICA/CCA ratio: 1.4 LEFT: End Diastole cm/sec ----- Left CCA: 26.7 ----- Left ICA: 25.4 ----- Left ECA: 0.0 VERTEBRALS (direction of flow): Right Vertebral: Antegrade Left Vertebral: Antegrade Rhythm: Normal Plaque bilateral bulbs. Elevated right ICA and bilateral ECA's. Bilateral wall thickening. No signif icant stenosis. IMPRESSION: No evidence for hemodynamically significant stenosis is time. Criteria for Assigning % of Stenosis / Diameter reduction (Estimation based on the indirect measurements of the internal carotid artery velocities (ICA PSV). 1. Normal (no stenosis)=ICA PSV < 125 cm/s: ratio < 2.0: ICA EDV<40 cm/s. 2. Less than 50% stenosis=ICA PSV < 125 cm/s: ratio < 2.0: ICA EDV<40 cm/s. 3. 50 to 69% stenosis=ICA PSV of 125 to 230 cm/s: ration 2.0 ? 4.0: ICA EDV 40-100 cm/s. 4. Greater than 70% stenosis to near occlusion= ICA PSV > 230 cm/s: ratio > 4.0: ICA EDV > 100 cm/s. 5. Near occlusion= ICA PSV velocities may be low or undetectable: variable ratio and ICA EDV. 6. Total occlusion=unable to detect flow.
--- NOTE | 2020-03-08 11:42 | P.GSCN ---
History of Present Illness Consult date: 03/08/20 Reason for Consult: Critical lesion to the LAD Requesting physician: Gumaro Mojica History of present illness: This is a 54-year-old gentleman who follows on an outpatient basis with Dr. Quick. He has a previous medical history of coronary artery disease with myocardial infarction and previous stent placement to the RCA, hypertension, hyperlipidemia, ischemic cardiomyopathy with EF 45%, uncontrolled type 2 diabetes mellitus with hyperglycemia and most recent hemoglobin A1c 10.3%, current tobacco dependence, left leg vein stripping, and family history of lung cancer and diabetes. This gentleman was having anginal type symptoms described as chest discomfort at rest and with activity. He had a stent placed to the RCA approximately 1 year ago, at that time he had moderate disease in the LAD which was treated medically. Apparently he has continued to have mild anginal type symptoms similar to what he was feeling prior to his stent but not quite as severe. In addition he has had increased lower extremity edema. He was recommended to undergo repeat heart catheterization which was completed today and which demonstrated a patent RCA stent, but the mid LAD progressed to 99% stenosis at the bifurcation of the diagonal. Due to these findings consultation was placed to Dr. Gu from cardiothoracic surgery for recommendations for surgical revascularization versus stenting with [place]. Review of Systems Review systems was completed and was negative except as noted - Cardiovascular Reports as per HPI, Reports chest pain, Reports dyspnea on exertion, Reports leg edema - Musculoskeletal Reports low back pain Past Medical History Past Medical History: Coronary Artery Disease (CAD), Chest Pain / Angina, Heart Failure, Diabetes Mellitus, Hyperlipidemia, Hypertension, Myocardial Infarction ([place]), Pneumonia Additional Past Medical History / Comment(s): lymphedema afsaneh legs, bulging discs, carpal tunnel, neuropathy, recent chest pressure Last Myocardial Infarction Date:: 2008 History of Any Multi-Drug Resistant Organisms: None Reported Past Surgical History: Heart Catheterization With Stent Additional Past Surgical History / Comment(s): laser vein removal on left leg, foot surg. as a child, had all teeth removed recently Past Anesthesia/Blood Transfusion Reactions: No Reported Reaction Date of Last Stent Placement:: 2018 Past Psychological History: No Psychological Hx Reported Smoking Status: Current every day smoker Past Alcohol Use History: None Reported Past Drug Use History: None Reported - Past Family History Father Family Medical History: Cancer Additional Family Medical History / Comment(s): from lung ca Mother Family Medical History: Diabetes Mellitus Additional Family Medical History / Comment(s): from complication of diabetes Medications and Allergies Home Medications Medication Instructions Recorded Confirmed Type Aspirin EC [Ecotrin] 81 mg PO DAILY 08/02/14 03/08/20 History metFORMIN HCL [Glucophage] 1,000 mg PO BID 08/02/14 03/08/20 History HYDROcodone/APAP 7.5-325MG [[place] 1 tab PO TID PRN 05/05/16 03/08/20 History 7.5-325] Baclofen [Lioresal] 20 tab PO BID PRN 03/19/19 03/08/20 History Furosemide [Lasix] 80 mg PO DAILY 03/19/19 03/08/20 History Metoprolol Tartrate [Lopressor] 50 mg PO BID 03/19/19 03/08/20 History Clopidogrel [Plavix] 75 mg PO DAILY #30 tab 03/21/19 03/08/20 Rx Spironolactone [Aldactone] 25 mg PO DAILY #30 tab 03/21/19 03/08/20 Rx Atorvastatin [Lipitor] 80 mg PO HS 04/06/19 03/08/20 History Insulin Lispro [Admelog] See Protocol SQ CONTINUOUS 04/06/19 03/08/20 History Potassium Gluconate 99 mg PO HS 04/06/19 03/08/20 History Isosorbide Mononitrate ER [Imdur] 30 mg PO DAILY 03/02/20 03/08/20 History Allergies Allergy/AdvReac Type Severity Reaction Status Date / Time No Known Allergies Allergy Verified 03/08/20 06:48 Surgical - Exam Vital Signs Temp Pulse Resp BP Pulse Ox 98.5 F 72 18 152/85 98 03/08/20 06:53 03/08/20 06:53 03/08/20 06:53 03/08/20 06:53 03/08/20 06:53 - General well developed, well nourished, no distress, no pain, obese - Eyes normal ocular movement - ENT Edentulous - Neck no masses, no bruits, trachea midline - Respiratory Lungs sounds diminished bilaterally. Respirations even, nonlabored. Currently on room air with oxygen saturation 97%. No chest wall deformities. No clubbing or cyanosis present. - Cardiovascular S1, S2 present. Regular rate and rhythm, sinus rhythm on telemetry. Palpable peripheral pulses bilaterally. Bilateral lower extremity edema present. - Abdomen Abdomen: soft, non tender, bowel sounds - Genitourinary Deferred - Rectum Deferred - Integumentary Bilateral lower extremity with anterior tibia redness no rash, no growths - Neurologic normal coordination, normal sensation - Musculoskeletal normal posture - Psychiatric oriented to time, oriented to person, oriented to place, speech is normal, memory intact Results - Labs 03/08/20 07:00 03/08/20 07:00 Abnormal Lab Results - Last 24 Hours (Table) 03/08/20 03/08/20 Range/Units 07:00 07:07 Glucose 192 H (74-99) mg/dL POC Glucose (mg/dL) 201 H (75-99) mg/dL Diabetes panel 03/08/20 Range/Units 07:00 Sodium 139 (137-145) mmol/L Potassium 3.8 (3.5-5.1) mmol/L Chloride 104 (98-107) mmol/L Carbon Dioxide 27 (22-30) mmol/L BUN 18 (9-20) mg/dL Creatinine 0.96 (0.66-1.25) mg/dL Glucose 192 H (74-99) mg/dL Calcium 9.1 (8.4-10.2) mg/dL Calcium panel 03/08/20 Range/Units 07:00 Calcium 9.1 (8.4-10.2) mg/dL Pituitary panel 03/08/20 Range/Units 07:00 Sodium 139 (137-145) mmol/L Potassium 3.8 (3.5-5.1) mmol/L Chloride 104 (98-107) mmol/L Carbon Dioxide 27 (22-30) mmol/L BUN 18 (9-20) mg/dL Creatinine 0.96 (0.66-1.25) mg/dL Glucose 192 H (74-99) mg/dL Calcium 9.1 (8.4-10.2) mg/dL Adrenal panel 03/08/20 Range/Units 07:00 Sodium 139 (137-145) mmol/L Potassium 3.8 (3.5-5.1) mmol/L Chloride 104 (98-107) mmol/L Carbon Dioxide 27 (22-30) mmol/L BUN 18 (9-20) mg/dL Creatinine 0.96 (0.66-1.25) mg/dL Glucose 192 H (74-99) mg/dL Calcium 9.1 (8.4-10.2) mg/dL Assessment and Plan Assessment: 1. Coronary artery disease, previous myocardial infarction, patent stent to the RCA, critical 99% stenosis to the mid LAD 2. History of hypertension 3. History of hyperlipidemia 4. Ischemic cardiomyopathy with EF 45% 5. Uncontrolled type 2 diabetes with hyperglycemia, recent hemoglobin A1c 10.3% 6. Current tobacco dependence 7. History of left leg vein stripping 8. Family history of lung cancer and diabetes Plan: The patient was seen and examined at the bedside. Chart/diagnostics reviewed. The case was discussed with Dr. Gu who will be here today to see the patient. Recommend continuing aspirin, statin, beta [place] therapy. The usual perioperative course of coronary artery bypass surgery was discussed in detail with the patient and friend at the bedside, risks and benefits were reviewed, all questions were answered. We did order carotid Doppler, pulmonary function tests, chest x-ray. We'll calculate STS risk score and discuss with the patient. More recommendations to follow Thank you Dr. Mojica for this consult. We look forward to working with you in the care of your patient Time with Patient: Greater than 30
--- NOTE | 2020-03-08 12:24 | XR ---
EXAMINATION TYPE: XR chest 2V DATE OF EXAM: 03/08/2020 COMPARISON: 04/06/2019 HISTORY: Shortness of breath TECHNIQUE: Frontal and lateral views of the chest are obtained. FINDINGS: Scattered senescent parenchymal changes noted. Hyperinflation compatible with COPD. No evidence for infiltrate. No evidence for atelectasis. Heart size is stable. Mediastinal structures are stable and grossly unremarkable. No evidence for hilar prominence. Degenerative changes dorsal spine. IMPRESSION: 1. No evidence for acute pulmonary disease.
[2020-03-08 13:39] LABS: ABG Base Excess 0.9 mmol/L; ABG HCO3 26 mmol/L (21-25); ABG Oxygen Saturation 96.2 % (94-97); ABG PCO2 41 mmHg (35-45); ABG PO2 76 mmHg (83-108); ABG TCO2 27 mmol/L (19-24); Allen Test Performed? Yes
[2020-03-08 14:15] VITALS: BP 134/58; PULSE 72
[2020-03-08 14:20] LABS: Basophils % (A) 1 %; Eosinophils # (A) 0.1 k/uL (0-0.7); Eosinophils % (A) 2 %; HCT 38.5 % (39.0-53.0); HGB 13.1 gm/dL (13.0-17.5); Lymphocytes # (A) 1.8 k/uL (1.0-4.8); Lymphocytes % (A) 25 %; MCH 31.1 pg (25.0-35.0); MCV 91.6 fL (80.0-100.0); Mean Platelet Volume 10.2; Monocytes # (A) 0.4 k/uL (0-1.0); Monocytes % (A) 5 %; Neutrophils # (A) 4.9 k/uL (1.3-7.7); Neutrophils % (A) 67 %; Platelet Count 152 k/uL (150-450); RDW 13.2 % (11.5-15.5); WBC 7.3 k/uL (3.8-10.6)
[2020-03-08 14:27] LABS: ALT 18 U/L (4-49); AST 16 U/L (17-59); African American GFR (CKD) >90 (>60 ml/min/1.73 sqM); Albumin 3.7 g/dL (3.5-5.0); Alkaline Phosphatase 90 U/L (38-126); Anion Gap 5 mmol/L; Blood Urea Nitrogen 16 mg/dL (9-20); Calcium 8.5 mg/dL (8.4-10.2); Carbon Dioxide 28 mmol/L (22-30); Chloride 104 mmol/L (98-107); Cholesterol 101 mg/dL (<200); Glucose 277 mg/dL (74-99); HDL Cholesterol 25 mg/dL (40-60); LDL Cholesterol,Calculated 24 mg/dL (0-99); Magnesium 1.5 mg/dL (1.6-2.3); Non-African American GFR(CKD) >90 (>60 ml/min/1.73 sqM); Potassium 3.7 mmol/L (3.5-5.1); Sodium 137 mmol/L (137-145); Total Bilirubin 0.8 mg/dL (0.2-1.3); Triglycerides 258 mg/dL (<150)
[2020-03-08 14:39] LABS: Partial Thromboplastin Time 24.2 sec (22.0-30.0); Prothrombin Time 10.3 sec (9.0-12.0)
[2020-03-08 15:26] LABS: Appearance,Urine Clear (Clear); Bilirubin,Urine Negative (Negative); Blood,Urine Negative (Negative); Color,Urine Yellow; Glucose,Urine (UA) 1+ (Negative); Ketones,Urine Negative (Negative); Leukocyte Esterase,Urine Negative (Negative); Nitrite,Urine Negative (Negative); Protein,Urine Negative (Negative); Specific Gravity,Urine 1.023 (1.001-1.035); Urobilinogen,Urine <2.0 mg/dL (<2.0)
[2020-03-08 20:49] LABS: Hepatitis A Antibody IgM Non-Reactive (Non-Reactive); Hepatitis B Core IgM Non-Reactive (Non-Reactive); Hepatitis B Surface Antigen Non-Reactive (Non-Reactive); Hepatitis C IgG Antibody Non-Reactive (Non-Reactive)
[2020-03-08 23:51] LABS: Hemoglobin A1C 8.9 % (4.0-6.0)
--- NOTE | 2020-03-10 09:38 | P.VSCSTY ---
Greater Saphenous Vein Mapping This is bilateral lower extremity greater saphenous vein mapping. Date of service: 03/08/2020 Vein quality and ultrasound appearance: We see no intraluminal thrombus or wall changes. Vein size groin right : 6.1 x 6.6 groin left: 4.8 x 5.1 High thigh right: 7.9 x 6.4 high thigh left: 4.0 x 4.3 Mid thigh right: 6.8 x 5.3 mid thigh left: 5.0 x 4.5 Above-knee right: 7.7 x 5.5 above- knee left: 4.8 x 4.6 Below knee right: 5.0 x 3.6 below-knee left: 3.9 x 3.6 Mid calf right: 5.0 x 4.3 mid calf left: 3.2 x 2.5 Ankle right: 4.6 x 2.5 ankle left: 2.8 x 2.4 Impression: Usable bilateral greater saphenous vein. Left leg somewhat more conducive to size for coronary revascularization..
== END ==
LOC: CATHCVL 06:31
PROVIDERS: ATTEND Internal Medicine Interventional Cardiology
DX: I25.110 Atherosclerotic heart disease of native coronary artery with unstable angina pectoris (principal); I25.2 Old myocardial infarction; I25.5 Ischemic cardiomyopathy; I11.0 Hypertensive heart disease with heart failure; I50.9 Heart failure, unspecified; E78.5 Hyperlipidemia, unspecified; E11.65 Type 2 diabetes mellitus with hyperglycemia; F17.200 Nicotine dependence, unspecified, uncomplicated; Z95.5 Presence of coronary angioplasty implant and graft; Z79.02 Long term (current) use of antithrombotics/antiplatelets; Z87.01 Personal history of pneumonia (recurrent); Z79.4 Long term (current) use of insulin; Z79.82 Long term (current) use of aspirin; Z79.899 Other long term (current) drug therapy; Z68.36 Body mass index [BMI] 36.0-36.9, adult; Z83.3 Family history of diabetes mellitus; Z80.1 Family history of malignant neoplasm of trachea, bronchus and lung
CPT/HCPCS: 36600; 93458; 86900; 86901; 80061; 80053; 80048; 80074; 82805; 83735; 85025; 85610; 85730; 86850; 86920; 81003; 87070; 83036; 71046; 93970; 93880; C1769; C1894; J2250; J2001; J1644; Q9967

== ENCOUNTER → 2020-03-11 | Outpatient (CLI) | payer OTHER | END | disposition home or self-care (01) | LOC: LABPAT 13:15 | PROVIDERS: ATTEND Thoracic Surgery (Cardiothoracic Vascular Surgery) | DX: U07.1 COVID-19 (principal) | CPT/HCPCS: U0003; C9803 ==

== ENCOUNTER 2020-03-15 05:37 | Inpatient (IN) | payer OTHER ==
--- NOTE | 2020-03-11 13:21 | P.PN ---
Progress Note - Text Progress Note Date: 03/11/20 5 meter walk test performed: #1 4.57 sec #2 4.39 sec #3 4.05 sec Patient tolerated without difficulty
[~2020-03-15 05:37] MED LIST changes: +ALBUMIN HUMAN 25% 50 ML IV ONE; +ALBUMIN HUMAN 5% 500 ML IVPB ONE; -ALPRAZolam 0.25 MG TAB PO PRN; -ALPRAZolam 0.5 MG TAB PO PRN; +ASPIRIN 325 MG TAB PO ONE; -ASPIRIN 325 MG TAB PO STA; +ATORVASTATIN 10 MG TAB PO ONE; -ATORVASTATIN 80 MG TAB PO SCH; -ATORVASTATIN 80 MG TAB PO STA; -BACLOFEN 10 MG TAB PO PRN; +CALCIUM CHLORIDE 100 MG/ML 10 ML SYRINGE IV ONE; +CARDIOPLEGIC SOLN (K+ 16 MEQ/L 1,000 ML with SODIUM BICARB (1 MEQ/ML) 20 ML, LIDOCAINE ... PERFUSION ONE; +CHLORHEXIDINE GLUCONATE 15 ML CUP MUCOUS MEM ONE; +CLEVIDIPINE BUTYRATE 25 MG in EMPTY BAG 1 BAG IV ONE; -CLOPIDOGREL 75 MG TAB PO SCH; -FUROSEMIDE 20 MG TAB PO SCH; -HEPARIN SODIUM 1,000 UN/ML (10ML VL) ONE; +HEPARIN SODIUM,PORCINE 5,000 UNIT in SODIUM CHLORIDE 0.9% 500 ML 500 ML IV ONE; -HYDROcodone/APAP 7.5-325MG 1 EACH TAB PO PRN; -INSULIN ASPART (NovoLOG) 100 UNIT/ML VIAL SQ SCH; +INSULIN REGULAR 100 UNIT in SODIUM CHLORIDE 0.9% 100 ML IV ONE; -IOPAMIDOL-370 100ML BTL INJ ONE; -ISOSORBIDE MONONITRATE ER 30 MG TAB.ER.24H PO SCH; +LACTATED RINGERS 1,000 ML IV ONE; -LIDOCAINE 1% INJ 10MG/ML (20 ML MDV) ONE; -LIDOCAINE 1% INJ 10MG/ML (20 ML MDV) SQ ONE; +MAGNESIUM SULFATE MG 500 MG/ML IV ONE; +MANNITOL 25% 12.5 GM/50 ML VIAL IV ONE; +METOPROLOL TARTRATE 12.5 MG TAB PO ONE; -METOPROLOL TARTRATE 50 MG TAB PO SCH; -MIDAZOLAM 2 MG/2 ML VIAL IVP ONE; +NITROGLYCERIN SL TABS 0.4 MG TAB SUBLINGUAL ONE; -NITROGLYCERIN SL TABS 0.4 MG TAB SUBLINGUAL PRN; +NITROGLYCERIN-D5W PMX 25 MG/250 ML BTL IV ONE; +NITROGLYCERIN-D5W PMX 50 MG in DEXTROSE/WATER 1 250ML.BAG IV ONE; -NON FORMULARY DRUG (Aspirin Ec 81 MG) PO SCH; -NON FORMULARY DRUG (Potassium Gluconate [Potassium Gluconate] 99 MG) PO SCH; +NOREPINEPHRINE 4 MG in SODIUM CHLORIDE 0.9% 250 ML IV ONE; +PAPAVERINE 360 MG in SODIUM CHLORIDE 0.9% 90 ML IV ONE; +PHENYLEPHRINE 10 MG/ML VIAL IV ONE; +PHENYLEPHRINE 40 MG in SODIUM CHLORIDE 0.9% 250 ML IV ONE; +PROTAMINE SULFATE 10 MG/ML 25 ML VIAL IV ONE; +PROTAMINE SULFATE 250 MG in EMPTY BAG 1 BAG IV ONE; -RX INFO: IV CONTRAST WAS GIVEN 1 EACH MISC MISCELLANE PRN; +SODIUM BICARB 8.4% 50 ML SYR (1 MEQ/ML) IV ONE; +SODIUM CHLORIDE 0.9% 1,000 ML IV ONE; -SODIUM CHLORIDE 0.9% 1,000 ML IV SCH; -SODIUM CHLORIDE 0.9% 1,000 ML in EMPTY BAG 1 BAG IV ONE; -SPIRONOLACTONE 25 MG TAB PO SCH; +TRANEXAMIC ACID 2,000 MG in SODIUM CHLORIDE 0.9% 80 ML IV ONE; -VERAPAMIL 2.5 MG/ML 2 ML AMP ONE; -VERAPAMIL SYRINGE (5 MG/10 ML) INTRAARTER ONE; +ceFAZolin 1,000 MG in SODIUM CHLORIDE 0.9% IRRIGATIO 1,000 ML IRRIGATION ONE; +ceFAZolin 2,000 MG in SODIUM CHLORIDE 0.9% 30 ML IVPB ONE; +propofoL 1,000 MG/100 ML VIAL IV ONE
[2020-03-15] MEDS ORDERED: LIDOCAINE 1% (10MG/ML) FOR IV START INTRADERMA ONE (06:07)
[2020-03-15 06:09] LABS: Glucose,Whole Blood 163 mg/dL (75-99)
[2020-03-15] MEDS ORDERED: fentaNYL (PF) 50 MCG/ML 2 ML AMP ONE (07:30)
[2020-03-15] MEDS ORDERED: MIDAZOLAM 2 MG/2 ML VIAL ONE (07:30)
[2020-03-15] MEDS ORDERED: PROTAMINE SULFATE 10 MG/ML 5 ML VIAL IV ONE (07:30)
[2020-03-15] MEDS ORDERED: HEPARIN SODIUM,PORCINE 10,000 UNIT/ML 1 ML VIAL ONE (07:30)
[2020-03-15] MEDS ORDERED: SODIUM CHLORIDE 0.9% 100 ML BAG ONE (07:30)
[2020-03-15] MEDS ORDERED: fentaNYL (PF) 50 MCG/ML 50 ML VIAL ONE (07:30)
[2020-03-15] MEDS ORDERED: SUFentanil 50 MCG/ML 1 ML AMP IV ONE (07:30)
[2020-03-15] MEDS ORDERED: VECURONIUM 10 MG VIAL IV ONE (07:30)
[2020-03-15] MEDS ORDERED: ceFAZolin 1,000 MG VIAL ONE (07:30)
[2020-03-15] MEDS ORDERED: NITROGLYCERIN-D5W PMX 50 MG/250 ML BOTTLE IV ONE (07:30)
[2020-03-15] MEDS ORDERED: PROPOFOL 10 MG/ML 20 ML VIAL IV ONE (07:30)
[2020-03-15] MEDS ORDERED: POTASSIUM CHLORIDE OPEN HEART 20 MEQ/50 ML BAG IVPB ONE (07:30)
[2020-03-15] MEDS ORDERED: SODIUM CHLORIDE 0.9% IRRIG 1,000 ML BTL IRRIGATION ONE (07:39)
[2020-03-15 08:15] LABS: ABG Glucose Whole Blood 190 mg/dL (75-99); ABG HCO3 27 mmol/L (21-25); ABG Hematocrit 40 % (34.0-46.0); ABG Ionized Calcium 4.7 mg/dL (4.5-5.3); ABG Oxygen Saturation 99.7 % (94-97); ABG PCO2 46 mmHg (35-45); ABG PH 7.37 (7.35-7.45); ABG PO2 154 mmHg (83-108); ABG Potassium Whole Blood 3.4 mmol/L (3.4-4.5); ABG Sodium Whole Blood 141 mmol/L (135-146); ABG TCO2 28 mmol/L (19-24)
[2020-03-15 09:20] LABS: ABG Base Excess 1.2 mmol/L; ABG Glucose Whole Blood 176 mg/dL (75-99); ABG HCO3 25 mmol/L (21-25); ABG Hematocrit 39 % (34.0-46.0); ABG Ionized Calcium 4.7 mg/dL (4.5-5.3); ABG Lactic Acid Whole Blood 1.3 mmol/L (0.5-1.6); ABG Oxygen Saturation 99.7 % (94-97); ABG PCO2 37 mmHg (35-45); ABG PH 7.44 (7.35-7.45); ABG PO2 138 mmHg (83-108); ABG Potassium Whole Blood 3.5 mmol/L (3.4-4.5); ABG Sodium Whole Blood 140 mmol/L (135-146); ABG TCO2 26 mmol/L (19-24)
[2020-03-15 09:55] LABS: ABG Base Excess 1.2 mmol/L; ABG Glucose Whole Blood 184 mg/dL (75-99); ABG HCO3 25 mmol/L (21-25); ABG Hematocrit 38 % (34.0-46.0); ABG Ionized Calcium 4.6 mg/dL (4.5-5.3); ABG Lactic Acid Whole Blood 1.1 mmol/L (0.5-1.6); ABG Oxygen Saturation 99.9 % (94-97); ABG PCO2 37 mmHg (35-45); ABG PH 7.44 (7.35-7.45); ABG PO2 156 mmHg (83-108); ABG Potassium Whole Blood 3.6 mmol/L (3.4-4.5); ABG Sodium Whole Blood 140 mmol/L (135-146); ABG TCO2 26 mmol/L (19-24)
[2020-03-15 10:15] LABS: ABG Glucose Whole Blood 187 mg/dL (75-99); ABG HCO3 26 mmol/L (21-25); ABG Hematocrit 38 % (34.0-46.0); ABG Ionized Calcium 4.6 mg/dL (4.5-5.3); ABG Lactic Acid Whole Blood 1.2 mmol/L (0.5-1.6); ABG PCO2 40 mmHg (35-45); ABG PH 7.41 (7.35-7.45); ABG PO2 113 mmHg (83-108); ABG Sodium Whole Blood 140 mmol/L (135-146); ABG TCO2 27 mmol/L (19-24)
[2020-03-15] MEDS ORDERED: Phosphorus Replacement Protoco 1 EACH MISC MISCELLANE PRN (10:34)
[2020-03-15] MEDS ORDERED: DEXMEDETOMIDINE/0.9% NACL(PMX) 400 MCG in EMPTY BAG 1 BAG IV SCH (10:34)
[2020-03-15] MEDS ORDERED: ONDANSETRON 4 MG/2 ML VIAL IVP PRN (10:34)
[2020-03-15] MEDS ORDERED: METOCLOPRAMIDE 5 MG/ML 2 ML VIAL IVP PRN (10:34)
[2020-03-15] MEDS ORDERED: Potassium Replacement Protocol 1 EACH MISC MISCELLANE PRN (10:34)
[2020-03-15] MEDS ORDERED: AMIODARONE 360 MG in DEXTROSE 5% IN WATER 200 ML IV PRN ×2 (10:34)
[2020-03-15] MEDS ORDERED: DEXTROSE 5% IN WATER 100 ML with AMIODARONE 150 MG IV PRN (10:34)
[2020-03-15] MEDS ORDERED: hydrALAZINE HCL 20 MG/ML 1 ML VIAL IVP PRN (10:34)
[2020-03-15] MEDS ORDERED: Magnesium Replacement Protocol 1 EACH MISC MISCELLANE PRN (10:34)
[2020-03-15] MEDS ORDERED: BENZOCAINE/MENTHOL LOZENG 1 EACH LOZENGE MUCOUS MEM PRN (10:34)
[2020-03-15] MEDS ORDERED: CALCIUM GLUCONATE 2 GM in SODIUM CHLORIDE 0.9% 100 ML IVPB PRN (10:34)
[2020-03-15] MEDS ORDERED: IPRATROPIUM-ALBUTEROL 3 ML NEB INHALATION PRN (10:34)
[2020-03-15] MEDS ORDERED: AMIODARONE 300 MG in DEXTROSE 5% IN WATER 250 ML IV PRN ×2 (10:34)
[2020-03-15] MEDS ORDERED: NITROGLYCERIN-D5W PMX 50 MG in DEXTROSE/WATER 1 250ML.BAG IV SCH (10:34)
--- NOTE | 2020-03-15 10:43 | P.OP ---
Date of Procedure: 03/15/20 Preoperative Diagnosis: CAD Postoperative Diagnosis: Same Procedure(s) Performed: Off-pump CABG 2 with sequential BRANDT to second diagonal and LAD Anesthesia: ETIENNEA Surgeon: Abdelrahman Mcginnis Commercial Cleaner #1: Blake Olivier Commercial Cleaner #2: Dante Huffman Estimated Blood Loss (ml): 100 IV fluids (ml): 1,000 Urine output (ml): 500 Pathology: none sent Condition: stable Disposition: ICU Indications for Procedure: 54-year-old male who presented a year ago with some myocardial infarction and undergone stenting of an occluded right coronary artery. He was noted at that time to have some disease in his LAD. He is remained with exertional anginal symptomatology since that time. Ultimately he underwent stress testing followed by cardiac catheterization last week. This demonstrated a heavily calcified complex lesion in a trifurcation in the LAD. This was in the proximal portion of the LAD. The left to a large diagonal branch a large LAD branch as well as a very small medial branch. Because of the calcific nature and proximal nature of these lesions was felt best to approach this with surgery and surgery was consulted and elective surgery was scheduled. The patient's Plavix was stopped. Operative Findings: LV function was good. AIDE demonstrated no significant valvular dysfunction. Calcified lesion in the proximal LAD was palpable. Distal to this there were 2 large branches laterally the middle of which led to the apex. Medially there was a very small branch which also LAD fairly distally on the anterior wall of the right ventricle. This was explored but was less than a millimeter in diameter was not felt to be graftable tube. The other 2 vessels were large and were felt to be graftable. The BRANDT was a good conduit. Description of Procedure: The patient was brought to the operating room, placed supine on the operating table, anesthetized and intubated. [place]-Shahriar catheter and arterial line of been placed in the preop holding area. AIDE probe and Melchor catheter were placed. The anterior torso and lower extremities were sterilely prepped and draped in standard fashion. Midline sternotomy was performed. The left hemisternum was retracted upwards and the left internal mammary artery harvested on a vascularized pedicle, left intact on its origin from the subclavian and divided distally. The left pleural space was drained with a 32-[place] chest tube. Standard sternal retractor was placed and the pericardium was opened in the midline. The anterior wall of the heart was exposed. Palpable lesion in the LAD proximally was identified with 3 vessels leading from it. The most medial vessel was extremely small and not graftable. The other 2 were good size vessels and were both grafted. Plans were made for sequential BRANDT to the LAD and diagonal. [id number] to the diagonal was performed first. The diagonal was a 2 mm vessel of good quality. It was stabilized and opened and blood flow control with a 1.5 mm flow through. [id number] anastomosis between the BRANDT and LAD was performed with running 8-0 Prolene suture. On completion the anastomosis the flow through was removed effectively probing the proximal distal portion anastomosis. Although clamp was moved from proximally to distally and inflow opened into the graft. Good hemostasis was again noted. The TISH pedicle was tacked surrounding epicardium with 6-0 silk sutures. Next the LAD was stabilized in its midportion. Was opened and noted to be a 1.5-1.75 mm vessel. Blood flow was controlled 1.5 mm flow through. End to side anastomosis between the BRANDT and the LAD was performed with running 8-0 Prolene suture. On completion of the anastomosis the flow through was removed effectively probing the proximal distal portion anastomosis. Suture was tied with good result and hemostasis. Inflow was open and good hemostasis confirmed. The graft lay well with no kinking and good length. The TISH pedicle was tacked surrounding epicardium with 6-0 silk. Heparin was not reversed with protamine and good hemostasis obtained throughout. The mediastinum was irrigated with warm antibiotic solution and drained with a 36-[place] chest tube. Left pleural space of been drained with a 32-[place] chest tube. Once we were assured of good hemostasis the sternum was closed with 8 sternal wires. Fascia was closed with 0 Ethibond. Subcutaneous and subcuticular layers were closed with layers of Vicryl suture. Dry sterile dressings were applied the patient was transferred to the ICU in stable condition.
[2020-03-15 11:13] LABS: Glucose,Whole Blood 200 mg/dL (75-99)
[2020-03-15 11:22] LABS: Basophils # (A) 0.1 k/uL (0-0.2); Basophils % (A) 1 %; Eosinophils # (A) 0.1 k/uL (0-0.7); Eosinophils % (A) 2 %; HCT 34.5 % (39.0-53.0); Lymphocytes # (A) 2.2 k/uL (1.0-4.8); Lymphocytes % (A) 27 %; MCH 31.3 pg (25.0-35.0); MCHC 34.8 g/dL (31.0-37.0); MCV 89.9 fL (80.0-100.0); Mean Platelet Volume 9.7; Monocytes # (A) 0.3 k/uL (0-1.0); Monocytes % (A) 3 %; Neutrophils # (A) 5.5 k/uL (1.3-7.7); Neutrophils % (A) 67 %; Platelet Count 136 k/uL (150-450); RBC 3.84 m/uL (4.30-5.90); RDW 13.4 % (11.5-15.5); WBC 8.3 k/uL (3.8-10.6)
[2020-03-15 11:33] LABS: Ionized Calcium 4.9 mg/dL (4.5-5.3)
[2020-03-15 11:33] LABS: Glucose,Whole Blood 206 mg/dL (75-99)
[2020-03-15] MEDS: INSULIN REGULAR 100 UNIT in SODIUM CHLORIDE 0.9% 100 ML IV SCH (11:33)
[2020-03-15 11:36] LABS: Partial Thromboplastin Time 24.9 sec (22.0-30.0); Prothrombin Time 10.6 sec (9.0-12.0)
[2020-03-15 11:41] LABS: ALT 18 U/L (4-49); AST 19 U/L (17-59); African American GFR (CKD) >90 (>60 ml/min/1.73 sqM); Alkaline Phosphatase 78 U/L (38-126); Anion Gap 6 mmol/L; Blood Urea Nitrogen 12 mg/dL (9-20); Calcium 8.1 mg/dL (8.4-10.2); Carbon Dioxide 24 mmol/L (22-30); Chloride 107 mmol/L (98-107); Glucose 179 mg/dL (74-99); Magnesium 1.4 mg/dL (1.6-2.3); Non-African American GFR(CKD) >90 (>60 ml/min/1.73 sqM); Potassium 3.7 mmol/L (3.5-5.1); Sodium 137 mmol/L (137-145); Total Bilirubin 0.5 mg/dL (0.2-1.3); Total Protein 5.1 g/dL (6.3-8.2)
[2020-03-15 11:41] LABS: ABG Base Excess 0.7 mmol/L; ABG HCO3 26 mmol/L (21-25); ABG Oxygen Saturation 99.6 % (94-97); ABG PCO2 46 mmHg (35-45); ABG PH 7.37 (7.35-7.45); ABG PO2 185 mmHg (83-108); ABG TCO2 28 mmol/L (19-24)
[2020-03-15] MEDS ORDERED: fentaNYL (PF) 50 MCG/ML 2 ML AMP IVP ONE (11:43)
[2020-03-15] MEDS: CLEVIDIPINE BUTYRATE 25 MG in EMPTY BAG 1 BAG IV SCH (11:47)
[2020-03-15] MEDS: LACTATED RINGERS 1,000 ML IV SCH (12:00)
--- NOTE | 2020-03-15 12:14 | XR ---
EXAMINATION TYPE: XR chest 1V portable DATE OF EXAM: 03/15/2020 COMPARISON: 03/08/2020 HISTORY: Postop cardiac surgery TECHNIQUE: Single frontal view of the chest is obtained. FINDINGS: ET tube and NG tube appear in good position. [place]-Shahriar catheter seen with the tip overlyin g the proximal pulmonary outflow tract. Mediastinal tube and chest tube noted with no sizable pneumot horax. Lungs are clear with no pleural effusion or or overt failure. Postsurgical changes seen. Heart size normal. Arthropathy of the AC joints. IMPRESSION: 1. Postoperative changes.
[2020-03-15] MEDS ORDERED: POTASSIUM CHLORIDE 20 MEQ in WATER FOR INJECTION 1 100ML.BAG IVPB SCH (12:15)
[2020-03-15] MEDS: IPRATROPIUM-ALBUTEROL 3 ML NEB INHALATION SCH ×4 (12:16→20:28)
[2020-03-15] MEDS: ACETAMINOPHEN IV (For NPO) 1,000 MG in EMPTY BAG 1 BAG IVPB SCH ×2 (12:36→17:16)
[2020-03-15] MEDS: MAGNESIUM SULFATE-D5W PMX 1 GM in DEXTROSE/WATER 1 100ML.BAG IVPB SCH ×3 (12:41→15:02)
[2020-03-15] MEDS: KETOROLAC 30 MG/ML 1 ML VIAL IVP SCH ×2 (12:46→17:21)
[2020-03-15 13:15] LABS: Glucose,Whole Blood 178 mg/dL (75-99)
[2020-03-15] MEDS: ALBUMIN HUMAN 5% 250 ML in EMPTY BAG 1 BAG IVPB PRN ×3 (13:31→14:01)
--- NOTE | 2020-03-15 13:46 | P.PN ---
Progress Note - Text Procedure performed: Transesophageal echocardiography Indication for the procedure: Coronary artery bypass graft surgery, ischemia monitoring, assessment of valvular function, intracardiac air monitoring, assessment of regional wall motion abnormalities and hemodynamic monitoring. Probe insertion: Under general anesthesia, uneventful. Pre-bypass findings: Left ventricle is hypertrophied and LV ejection fraction is approximately 45- 50%. Mild inferoseptal hypokinesia present Left atrium is mildly dilated. The right ventricle is mildly dilated and normal in function. Aortic valve appears to be normal .No Aortic Regurgitation seen. Mitral valve normal in anatomy. Trace mitral regurgitation seen. Mild tricuspid regurgitation seen. Pulmonic valve appears to be normal. Descending aorta grade 2 atheroma seen. No pericardial effusion noted.
[2020-03-15] MEDS ORDERED: NALOXONE 0.4 MG/ML 1 ML VIAL IVP STA (13:52)
[2020-03-15] MEDS ORDERED: NALOXONE 0.4 MG/ML 1 ML VIAL ONE (13:54)
[2020-03-15 14:10] LABS: Glucose,Whole Blood 176 mg/dL (75-99)
[2020-03-15 14:50] LABS: ABG Base Excess 1.1 mmol/L; ABG HCO3 27 mmol/L (21-25); ABG Oxygen Saturation 98.4 % (94-97); ABG PCO2 53 mmHg (35-45); ABG PH 7.32 (7.35-7.45); ABG PO2 115 mmHg (83-108); ABG TCO2 29 mmol/L (19-24)
[2020-03-15 14:50] LABS: Glucose,Whole Blood 163 mg/dL (75-99)
[2020-03-15 14:57] LABS: Basophils % (A) 0 %; Eosinophils # (A) 0.1 k/uL (0-0.7); Eosinophils % (A) 1 %; HCT 31.2 % (39.0-53.0); HGB 10.9 gm/dL (13.0-17.5); Lymphocytes # (A) 1.5 k/uL (1.0-4.8); Lymphocytes % (A) 15 %; MCH 31.5 pg (25.0-35.0); MCHC 34.8 g/dL (31.0-37.0); MCV 90.4 fL (80.0-100.0); Mean Platelet Volume 9.7; Monocytes # (A) 0.4 k/uL (0-1.0); Monocytes % (A) 4 %; Neutrophils # (A) 7.9 k/uL (1.3-7.7); Neutrophils % (A) 79 %; Platelet Count 113 k/uL (150-450); RBC 3.46 m/uL (4.30-5.90); RDW 13.4 % (11.5-15.5); WBC 10.1 k/uL (3.8-10.6)
--- NOTE | 2020-03-15 15:36 | CONS ---
CONSULTATION Mr. Suarez is a 54-year-old male who underwent coronary bypass grafting today with a BRANDT to the LAD and to the diagonal branch. The patient has been followed by Dr. Mojica, has a known history of coronary artery disease status post percutaneous revascularization in a setting of a myocardial infarction in March of 2019. At that time he underwent stenting of the mid right coronary artery. His echocardiogram during that admission showed an ejection fraction of 40% to 45%. He has been complaining of chest discomfort recently and underwent repeat cardiac catheterization by Dr. Mojica on March 08 and was found to have severe stenosis involving the LAD and surgical intervention was recommended. The patient is intubated and sedated. He coronary risk factors are remarkable for diabetes, hypertension, and hyperlipidemia. MEDICATION: His medications prior to the admission included metformin 1 g twice a day, spironolactone 25 mg daily, metoprolol tartrate 50 mg twice a day, isosorbide mononitrate 30 mg daily, furosemide 80 mg daily, Lipitor 80 mg daily, aspirin once a day, and his Plavix is on hold. REVIEW OF SYSTEMS: Could not be obtained. PHYSICAL EXAMINATION: A 54-year-old male, intubated and sedated, blood pressure 133/70 with a heart rate in the 70s. HEAD: Normocephalic. EYES: Sclerae nonicteric. NECK: [place] Shahriar in place on the right IJ. LUNGS: Clear to auscultation anteriorly. HEART: Regular rate and rhythm, S1, S2. No S3. No rub appreciated. ABDOMEN: Soft, positive bowel sounds, no organomegaly. EXTREMITIES: Marlon wrap in place. LAB DATA: Revealed a BUN and creatinine of 12 and 0.39, potassium 3.7, hemoglobin of 12. IMPRESSION: 1. Status post coronary bypass grafting in a patient with known history of coronary artery disease. 2. Hypertension. 3. Hyperlipidemia. 4. Diabetes mellitus. RECOMMENDATION: From the cardiac standpoint, will continue routine postoperative care. Hopefully he will be weaned and extubated soon and re-initiate his oral treatment. Depending on his progress, further recommendation will be made. Thank you for this consult. Will follow with you. MMODL / IJN: [id number] /
[2020-03-15] MEDS ORDERED: MUPIROCIN 2% OINT 22 GM TUBE NASAL ONE (15:45)
--- NOTE | 2020-03-15 15:58 | P.CNPUL ---
History of Present Illness Consult date: 03/15/20 Requesting physician: Abdelrahman Mcginnis Reason for consult: other Chief complaint: coronary artery disease, status off-pump CABG 2 History of present illness: This is a 54-year-old white male patient of Dr. Quick with history of coronary artery disease with previous intervention and stenting of the RCA, previous myocardial infarction, hypertension, hyperlipidemia, ischemic cardiomyopathy with an EF of 45%, uncontrolled type 2 diabetes mellitus with A1c level of 10.3%, chronic smoker, peripheral vascular disease. Patient was recently was experiencing mild anginal symptoms, and increased lower extremity edema. He underwent heart catheterization on 03/08/2020, showing patent RCA stent, mid LAD 99% stenosis at the bifurcation of the diagonal, patient was referred to cardiothoracic surgery for surgical revascularization. Today on 03/15/2020 patient underwent off-pump CABG 2 with sequential BRANDT to the second diagonal and LAD. worsening the patient in the postoperative period in the intensive care unit. Currently sedated, on mechanical ventilator, on assist-control mode with a rate of 12, tidal volume 600, FiO2 of 50% and PEEP of 10. Postoperative blood gases showed pO2 of 185, pCO2 of 46, and pH of 7.37, on FiO2 of 50%. FiO2 was dropped down to 40%. patient is hemodynamically stable, on lactated Ringer's at a rate of 50, insulin drip is at 5 units per hour, nitroglycerin drip is at 5 mics per minute, Diprivan drip has been turned off. PA pressures 28/15, cardiac output is 4.7, cardiac index is 2.0. One mediastinal and left pleural chest tube a total of 140 mL of sanguinous output, hemodynamically patient is stable, in sinus mechanism with a controlled rate. postoperative chest x-ray shows ET tube, NG tube [place]-Shahriar catheter in appropriate positions, lungs are clear no pleural effusion. Review of Systems All systems: negative Constitutional: Denies chills, Denies fever Eyes: denies blurred vision, denies pain Ears, nose, mouth and throat: Denies headache, Denies sore throat Cardiovascular: Reports dyspnea on exertion, Reports leg edema, Denies chest pain, Denies shortness of breath Respiratory: Denies cough Gastrointestinal: Denies abdominal pain, Denies diarrhea, Denies nausea, Denies vomiting Musculoskeletal: Denies myalgias Integumentary: Denies pruritus, Denies rash Neurological: Denies numbness, Denies weakness Psychiatric: Denies anxiety, Denies depression Endocrine: Denies fatigue, Denies weight change Past Medical History Past Medical History: Coronary Artery Disease (CAD), Chest Pain / Angina, Heart Failure, Diabetes Mellitus, Hyperlipidemia, Hypertension, Myocardial Infarction ([place]), Pneumonia Additional Past Medical History / Comment(s): lymphedema afsaneh legs, bulging discs, carpal tunnel, neuropathy, recent chest pressure Last Myocardial Infarction Date:: 2008 History of Any Multi-Drug Resistant Organisms: None Reported Past Surgical History: Heart Catheterization With Stent Additional Past Surgical History / Comment(s): laser vein removal on left leg, foot surg. as a child, had all teeth removed recently, 4 stents total Past Anesthesia/Blood Transfusion Reactions: No Reported Reaction Date of Last Stent Placement:: 2018 Smoking Status: Former smoker - Past Family History Father Family Medical History: Cancer Additional Family Medical History / Comment(s): from lung ca Mother Family Medical History: Diabetes Mellitus Additional Family Medical History / Comment(s): from complication of diabetes Medications and Allergies Home Medications Medication Instructions Recorded Confirmed Type Aspirin EC [Ecotrin] 81 mg PO DAILY 08/02/14 03/15/20 History metFORMIN HCL [Glucophage] 1,000 mg PO BID 08/02/14 03/15/20 History HYDROcodone/APAP 7.5-325MG [[place] 1 tab PO TID PRN 05/05/16 03/15/20 History 7.5-325] Baclofen [Lioresal] 20 tab PO BID PRN 03/19/19 03/15/20 History Furosemide [Lasix] 80 mg PO DAILY 03/19/19 03/15/20 History Metoprolol Tartrate [Lopressor] 50 mg PO BID 03/19/19 03/15/20 History Clopidogrel [Plavix] 75 mg PO DAILY #30 tab 03/21/19 03/15/20 Rx Spironolactone [Aldactone] 25 mg PO DAILY #30 tab 03/21/19 03/15/20 Rx Atorvastatin [Lipitor] 80 mg PO HS 04/06/19 03/15/20 History Insulin Lispro [Admelog] See Protocol SQ AC-TID 04/06/19 03/15/20 History Potassium Gluconate 99 mg PO HS 04/06/19 03/15/20 History Isosorbide Mononitrate ER [Imdur] 30 mg PO DAILY 03/02/20 03/15/20 History Allergies Allergy/AdvReac Type Severity Reaction Status Date / Time No Known Allergies Allergy Verified 03/11/20 14:38 Physical Exam Vitals: Vital Signs Temp Pulse Pulse Resp BP BP Pulse Ox 03/15/20 12:29 61 03/15/20 12:18 60 03/15/20 05:51 96.1 F L 69 16 132/80 133/78 99 Intake and Output 03/15/20 03/15/20 03/15/20 06:59 14:59 22:59 Intake Total 200 84.415 Output Total 850 Balance 200 -765.585 Intake: IV 200 33 Intake, IV Titration 51.415 Amount Clevidipine Butyrate 25 9.733 mg In Empty Bag 1 bag @ 1 MG/HR 2 mls/hr IV .Q24H [facility] Rx#:[id number] Insulin Regular 100 unit 12.221 In Sodium Chloride 0.9% 100 ml @ Per Protocol IV .Q0M [facility] Rx#:[id number] Nitroglycerin-D5w Pmx 50 3.825 mg In Dextrose/Water 1 250ml.bag @ 5 MCG/MIN 1.5 mls/hr IV .Q24H [facility] Rx#: [id number] propofoL 1,000 mg In 25.636 Empty Bag 1 bag @ Titrate IV .Q0M [facility] Rx#: [id number] Output: Urine 600 Estimated Blood Loss 250 Other: Weight 116 kg 116 kg GENERAL EXAM: sedated, intubated, 54-year-old white male comfortable in no apparent distress. HEAD: Normocephalic/atraumatic. EYES: Normal reaction of pupils, equal size. Conjunctiva pink, sclera white. NOSE: Clear with pink turbinates. THROAT: No erythema or exudates. NECK: No masses, no JVD, no thyroid enlargement, no adenopathy. CHEST: No chest wall deformity. Symmetrical expansion. midsternal incision is clean dry and intact, 1 mediastinal and left pleuralchest tube sites are clean dry and intact, connected to Pleur-evac and wall suction, without evidence of air leak, with sanguinous output in the Pleur-evac's, a total of 140 ML of sanguinous output LUNGS: Equal air entry with no crackles, wheeze, rhonchi or dullness. CVS: Regular rate and rhythm, normal S1 and S2, no gallops, no murmurs, no rubs ABDOMEN: Soft, nontender. No hepatosplenomegaly, normal bowel sounds, no guarding or rigidity. EXTREMITIES: No clubbing, no edema, no cyanosis, 2+ pulses and upper and lower extremities. MUSCULOSKELETAL: Muscle strength and tone normal. SPINE: No scoliosis or deformity SKIN: No rashes CENTRAL NERVOUS SYSTEM: sedated, intubated. No focal deficits, tone is normal in all 4 extremities. Results - Laboratory Findings CBC and BMP: 03/15/20 14:49 03/15/20 11:00 ABG ABG pH 7.32 (7.35-7.45) L 03/15/20 14:45 ABG pCO2 53 mmHg (35-45) H 03/15/20 14:45 ABG pO2 115 mmHg (83-108) H 03/15/20 14:45 ABG O2 Saturation 98.4 % (94-97) H 03/15/20 14:45 PT/INR, D-dimer PT 10.6 sec (9.0-12.0) 03/15/20 11:00 INR 1.0 (<1.2) 03/15/20 11:00 Abnormal lab findings: Abnormal Labs 03/08/20 03/15/20 03/15/20 14:01 06:00 08:18 RBC Hgb Hct Plt Count Neutrophils # ABG pH ABG pCO2 46 H ABG pO2 154 H ABG HCO3 27 H ABG Total CO2 28 H ABG O2 Saturation 99.7 H ABG Glucose 190 H Hemoglobin Glucose POC Glucose (mg/dL) 163 H Calcium Magnesium Total Protein Albumin Arterial Blood Glucose 190 H Crossmatch See Detail 03/15/20 03/15/20 03/15/20 09:24 09:59 10:18 RBC Hgb Hct Plt Count Neutrophils # ABG pH ABG pCO2 ABG pO2 138 H 156 H 113 H ABG HCO3 26 H ABG Total CO2 26 H 26 H 27 H ABG O2 Saturation 99.7 H 99.9 H 99.0 H ABG Glucose 176 H 184 H 187 H Hemoglobin 12.7 L 12.3 L 12.3 L Glucose POC Glucose (mg/dL) Calcium Magnesium Total Protein Albumin Arterial Blood Glucose 176 H 184 H 187 H Crossmatch 03/15/20 03/15/20 03/15/20 11:00 11:00 11:01 RBC 3.84 L Hgb 12.0 L Hct 34.5 L Plt Count 136 L Neutrophils # ABG pH ABG pCO2 ABG pO2 ABG HCO3 ABG Total CO2 ABG O2 Saturation ABG Glucose Hemoglobin Glucose 179 H POC Glucose (mg/dL) 200 H Calcium 8.1 L Magnesium 1.4 L Total Protein 5.1 L Albumin 3.0 L Arterial Blood Glucose Crossmatch 03/15/20 03/15/20 03/15/20 11:32 11:36 13:13 RBC Hgb Hct Plt Count Neutrophils # ABG pH ABG pCO2 46 H ABG pO2 185 H ABG HCO3 26 H ABG Total CO2 28 H ABG O2 Saturation 99.6 H ABG Glucose Hemoglobin Glucose POC Glucose (mg/dL) 206 H 178 H Calcium Magnesium Total Protein Albumin Arterial Blood Glucose Crossmatch 03/15/20 03/15/20 03/15/20 14:08 14:45 14:47 RBC Hgb Hct Plt Count Neutrophils # ABG pH 7.32 L ABG pCO2 53 H ABG pO2 115 H ABG HCO3 27 H ABG Total CO2 29 H ABG O2 Saturation 98.4 H ABG Glucose Hemoglobin Glucose POC Glucose (mg/dL) 176 H 163 H Calcium Magnesium Total Protein Albumin Arterial Blood Glucose Crossmatch 03/15/20 14:49 RBC 3.46 L Hgb 10.9 L Hct 31.2 L Plt Count 113 L Neutrophils # 7.9 H ABG pH ABG pCO2 ABG pO2 ABG HCO3 ABG Total CO2 ABG O2 Saturation ABG Glucose Hemoglobin Glucose POC Glucose (mg/dL) Calcium Magnesium Total Protein Albumin Arterial Blood Glucose Crossmatch - Diagnostic Findings Chest x-ray: report reviewed, image reviewed Assessment and Plan Plan: Assessment: #1. Coronary artery disease, with previous history of stenting of the RCA, with symptoms of exertional dyspnea, status post off-pump CABG 2 with sequential BRANDT to second diagonal and LAD, postoperative day 0 #2. Routine postoperative ventilator management #3. Poorly controlled diabetes mellitus with the A1c level of 10.3% with diabetic neuropathy #4. Chronic and ongoing tobacco dependence #5. Ischemic cardiomyopathy with an EF of 45% #6. Hypertension #7. Hyperlipidemia #8. History of myocardial infarction Plan: We'll continue with spontaneous awakening trials, spontaneous breathing trials per protocol, hemodynamically patient is stable, postoperative chest x-ray, blood gases and labs have been reviewed. Patient is doing well, continue close hemodynamic monitoring, incentive spirometry to the bedside after extubation, continue nebulized bronchodilators while on the vent, we'll switch to when necessary after extubation, daily chest x-ray and labs. May utilize BiPAP support if needed. we'll continue to follow I performed a history & physical examination of the patient and discussed their management with my nurse practitioner, Edyta Palomo. I reviewed the nurse practitioner's note and agree with the documented findings and plan of care. Lung sounds are positive for clear breath sounds.. The findings and the impression was discussed with the patient. I attest to the documentation by the nurse practitioner. Time with Patient: Greater than 30
[2020-03-15 16:03] LABS: Glucose,Whole Blood 138 mg/dL (75-99)
[2020-03-15 17:06] LABS: Glucose,Whole Blood 109 mg/dL (75-99)
[2020-03-15] MEDS: HEPARIN SODIUM,PORCINE 5,000 UNIT/ML 1 ML VIAL SQ SCH ×2 (17:21→23:19)
[2020-03-15 17:28] LABS: Basophils % (A) 0 %; Eosinophils # (A) 0.1 k/uL (0-0.7); Eosinophils % (A) 1 %; HCT 32.9 % (39.0-53.0); HGB 11.1 gm/dL (13.0-17.5); Lymphocytes # (A) 1.4 k/uL (1.0-4.8); Lymphocytes % (A) 16 %; MCH 30.6 pg (25.0-35.0); MCHC 33.9 g/dL (31.0-37.0); MCV 90.3 fL (80.0-100.0); Mean Platelet Volume 9.9; Monocytes # (A) 0.4 k/uL (0-1.0); Monocytes % (A) 4 %; Neutrophils % (A) 78 %; Platelet Count 106 k/uL (150-450); RBC 3.64 m/uL (4.30-5.90); RDW 13.4 % (11.5-15.5)
[2020-03-15 18:13] LABS: Glucose,Whole Blood 123 mg/dL (75-99)
[2020-03-15 18:59] LABS: Glucose,Whole Blood 132 mg/dL (75-99)
[2020-03-15 20:14] LABS: Glucose,Whole Blood 126 mg/dL (75-99)
[2020-03-15 21:09] LABS: Glucose,Whole Blood 128 mg/dL (75-99)
[2020-03-15] MEDS: BACLOFEN 10 MG TAB PO PRN (21:31)
[2020-03-15 22:18] LABS: Glucose,Whole Blood 128 mg/dL (75-99)
[2020-03-15] MEDS: HYDROcodone/APAP 7.5-325MG 1 EACH TAB PO PRN (22:56)
[2020-03-15 23:10] LABS: Glucose,Whole Blood 128 mg/dL (75-99)
--- NOTE | 2020-03-15 23:16 | P.CONS ---
History of Present Illness - Reason for Consult Consult date: 03/15/20 Medical management - Chief Complaint s/p CABG - History of Present Illness Patient is a 54-year-old male with a known history of coronary artery disease status post stent placement, hypertension, diabetes type 2 insulin-dependent, history of [place], hyperlipidemia and previous history of smoking who was recently underwent cardiac catheterization on 03/08/2020 showed patent RCA stent, mid LAD 99% stenosis at the bifurcation of the diagonal. Patient was referred to CT surgery. Patient underwent coronary artery bypass graft x2 as well on 03/15/2020. Perioperatively patient was intubated and transferred to intensive care unit. Currently patient is extubated. Chest x-ray showed postoperative changes. ET tube and NG tube appear in good position. [place]-Shahriar catheter is seen with the tip overlying the proximal pulmonary outflow tract. Mediastinal tube and chest tube noted with no sizable pneumothorax. Lungs are clear with no pleural effusion or overt failure. Postsurgical surgical changes noted. Laboratory data showed WBC 8.3, hemoglobin 12.0 and platelets 136 Sodium 137, potassium 3.7, chloride 107, BUN 12 and creatinine 0.79 blood sugar was 200 magnesium 1.4 Review of Systems Constitutional: Patient denies any fever or chills . No generalized weakness or weight loss. Abdomen: Patient denied nausea vomiting and diarrhea and abdominal pain. Cardiovascular: Patient denies any chest pain or short of breath no palpitations.Soreness at the surgical site. Respiratory: patient denied any cough is from production. No shortness of lee th Neurologic: Patient denied any numbness or tingling headache. Musculoskeletal: Patient denies any complaints of joint swelling or deformity. Skin: Negative Psychiatric: Negative Endocrine: No heat or cold intolerance. No recent weight gain. Genitourinary: No dysuria or hematuria. All other 14 point ROS negative except the above Past Medical History Past Medical History: Coronary Artery Disease (CAD), Chest Pain / Angina, Heart Failure, Diabetes Mellitus, Hyperlipidemia, Hypertension, Myocardial Infarction ([place]), Pneumonia Additional Past Medical History / Comment(s): lymphedema afsaneh legs, bulging discs, carpal tunnel, neuropathy, recent chest pressure Last Myocardial Infarction Date:: 2008 History of Any Multi-Drug Resistant Organisms: None Reported Past Surgical History: Heart Catheterization With Stent Additional Past Surgical History / Comment(s): laser vein removal on left leg, foot surg. as a child, had all teeth removed recently, 4 stents total Past Anesthesia/Blood Transfusion Reactions: No Reported Reaction Date of Last Stent Placement:: 2018 Smoking Status: Former smoker - Past Family History Father Family Medical History: Cancer Additional Family Medical History / Comment(s): from lung ca Mother Family Medical History: Diabetes Mellitus Additional Family Medical History / Comment(s): from complication of diabetes Medications and Allergies Home Medications Medication Instructions Recorded Confirmed Type Aspirin EC [Ecotrin] 81 mg PO DAILY 08/02/14 03/15/20 History metFORMIN HCL [Glucophage] 1,000 mg PO BID 08/02/14 03/15/20 History HYDROcodone/APAP 7.5-325MG [[place] 1 tab PO TID PRN 05/05/16 03/15/20 History 7.5-325] Baclofen [Lioresal] 20 tab PO BID PRN 03/19/19 03/15/20 History Furosemide [Lasix] 80 mg PO DAILY 03/19/19 03/15/20 History Metoprolol Tartrate [Lopressor] 50 mg PO BID 03/19/19 03/15/20 History Clopidogrel [Plavix] 75 mg PO DAILY #30 tab 03/21/19 03/15/20 Rx Spironolactone [Aldactone] 25 mg PO DAILY #30 tab 03/21/19 03/15/20 Rx Atorvastatin [Lipitor] 80 mg PO HS 04/06/19 03/15/20 History Insulin Lispro [Admelog] See Protocol SQ AC-TID 04/06/19 03/15/20 History Potassium Gluconate 99 mg PO HS 04/06/19 03/15/20 History Isosorbide Mononitrate ER [Imdur] 30 mg PO DAILY 03/02/20 03/15/20 History Allergies Allergy/AdvReac Type Severity Reaction Status Date / Time No Known Allergies Allergy Verified 03/11/20 14:38 Physical Exam Vitals: Vital Signs Temp Pulse Pulse Resp BP BP Pulse Ox 03/15/20 12:29 61 03/15/20 12:18 60 03/15/20 05:51 96.1 F L 69 16 132/80 133/78 99 Intake and Output 03/15/20 03/15/20 03/15/20 06:59 14:59 22:59 Intake Total 200 84.415 Output Total 850 Balance 200 -765.585 Intake: IV 200 33 Intake, IV Titration 51.415 Amount Clevidipine Butyrate 25 9.733 mg In Empty Bag 1 bag @ 1 MG/HR 2 mls/hr IV .Q24H [facility] Rx#:[id number] Insulin Regular 100 unit 12.221 In Sodium Chloride 0.9% 100 ml @ Per Protocol IV .Q0M [facility] Rx#:[id number] Nitroglycerin-D5w Pmx 50 3.825 mg In Dextrose/Water 1 250ml.bag @ 5 MCG/MIN 1.5 mls/hr IV .Q24H [facility] Rx#: [id number] propofoL 1,000 mg In 25.636 Empty Bag 1 bag @ Titrate IV .Q0M [facility] Rx#: [id number] Output: Urine 600 Estimated Blood Loss 250 Other: Weight 116 kg 116 kg PHYSICAL EXAMINATION: Patient is lying in the bed comfortably, no acute distress, awake alert and oriented.. HEENT: Normocephalic. Neck is supple. Pupils reactive. Nostrils clear. Oral cavity is moist. Ears reveal no drainage. Neck reveals no JVD, carotid bruits, or thyromegaly. CHEST EXAMINATION: Trachea is central. Symmetrical expansion. Bibasilar diminished air entry. Mid sternal surgical site is bandaged. Lung salas clear to auscultation and percussion. CARDIAC: Normal S1, S2 with no gallops. No murmurs ABDOMEN: Soft. Bowel sounds normal. No organomegaly. No abdominal bruits. Extremities: 2+ edema. No clubbing or cyanosis Neurologically awake, alert, oriented x3 with well-coordinated movements. No focal deficits noted Skin: No rash or skin lesions. Psychiatric: Coperative. Nonsuicidal Musculoskeletal: No joint swelling or deformity. Normal range of motion. Results CBC & Chem 7: 03/15/20 17:03 03/15/20 11:00 Labs: Abnormal Lab Results - Last 24 Hours (Table) 03/08/20 03/15/20 03/15/20 Range/Units 14:01 06:00 08:18 RBC (4.30-5.90) m/uL Hgb (13.0-17.5) gm/dL Hct (39.0-53.0) % Plt Count (150-450) k/uL Neutrophils # (1.3-7.7) k/uL ABG pH (7.35-7.45) ABG pCO2 46 H (35-45) mmHg ABG pO2 154 H (83-108) mmHg ABG HCO3 27 H (21-25) mmol/L ABG Total CO2 28 H (19-24) mmol/L ABG O2 Saturation 99.7 H (94-97) % ABG Glucose 190 H (75-99) mg/dL Hemoglobin (13.0-17.5) gm/dL Glucose (74-99) mg/dL POC Glucose (mg/dL) 163 H (75-99) mg/dL Calcium (8.4-10.2) mg/dL Magnesium (1.6-2.3) mg/dL Total Protein (6.3-8.2) g/dL Albumin (3.5-5.0) g/dL Arterial Blood Glucose 190 H (75-99) mg/dL Crossmatch See Detail 03/15/20 03/15/20 03/15/20 Range/Units 09:24 09:59 10:18 RBC (4.30-5.90) m/uL Hgb (13.0-17.5) gm/dL Hct (39.0-53.0) % Plt Count (150-450) k/uL Neutrophils # (1.3-7.7) k/uL ABG pH (7.35-7.45) ABG pCO2 (35-45) mmHg ABG pO2 138 H 156 H 113 H (83-108) mmHg ABG HCO3 26 H (21-25) mmol/L ABG Total CO2 26 H 26 H 27 H (19-24) mmol/L ABG O2 Saturation 99.7 H 99.9 H 99.0 H (94-97) % ABG Glucose 176 H 184 H 187 H (75-99) mg/dL Hemoglobin 12.7 L 12.3 L 12.3 L (13.0-17.5) gm/dL Glucose (74-99) mg/dL POC Glucose (mg/dL) (75-99) mg/dL Calcium (8.4-10.2) mg/dL Magnesium (1.6-2.3) mg/dL Total Protein (6.3-8.2) g/dL Albumin (3.5-5.0) g/dL Arterial Blood Glucose 176 H 184 H 187 H (75-99) mg/dL Crossmatch 03/15/20 03/15/20 03/15/20 Range/Units 11:00 11:00 11:01 RBC 3.84 L (4.30-5.90) m/uL Hgb 12.0 L (13.0-17.5) gm/dL Hct 34.5 L (39.0-53.0) % Plt Count 136 L (150-450) k/uL Neutrophils # (1.3-7.7) k/uL ABG pH (7.35-7.45) ABG pCO2 (35-45) mmHg ABG pO2 (83-108) mmHg ABG HCO3 (21-25) mmol/L ABG Total CO2 (19-24) mmol/L ABG O2 Saturation (94-97) % ABG Glucose (75-99) mg/dL Hemoglobin (13.0-17.5) gm/dL Glucose 179 H (74-99) mg/dL POC Glucose (mg/dL) 200 H (75-99) mg/dL Calcium 8.1 L (8.4-10.2) mg/dL Magnesium 1.4 L (1.6-2.3) mg/dL Total Protein 5.1 L (6.3-8.2) g/dL Albumin 3.0 L (3.5-5.0) g/dL Arterial Blood Glucose (75-99) mg/dL Crossmatch 03/15/20 03/15/20 03/15/20 Range/Units 11:32 11:36 13:13 RBC (4.30-5.90) m/uL Hgb (13.0-17.5) gm/dL Hct (39.0-53.0) % Plt Count (150-450) k/uL Neutrophils # (1.3-7.7) k/uL ABG pH (7.35-7.45) ABG pCO2 46 H (35-45) mmHg ABG pO2 185 H (83-108) mmHg ABG HCO3 26 H (21-25) mmol/L ABG Total CO2 28 H (19-24) mmol/L ABG O2 Saturation 99.6 H (94-97) % ABG Glucose (75-99) mg/dL Hemoglobin (13.0-17.5) gm/dL Glucose (74-99) mg/dL POC Glucose (mg/dL) 206 H 178 H (75-99) mg/dL Calcium (8.4-10.2) mg/dL Magnesium (1.6-2.3) mg/dL Total Protein (6.3-8.2) g/dL Albumin (3.5-5.0) g/dL Arterial Blood Glucose (75-99) mg/dL Crossmatch 03/15/20 03/15/20 03/15/20 Range/Units 14:08 14:45 14:47 RBC (4.30-5.90) m/uL Hgb (13.0-17.5) gm/dL Hct (39.0-53.0) % Plt Count (150-450) k/uL Neutrophils # (1.3-7.7) k/uL ABG pH 7.32 L (7.35-7.45) ABG pCO2 53 H (35-45) mmHg ABG pO2 115 H (83-108) mmHg ABG HCO3 27 H (21-25) mmol/L ABG Total CO2 29 H (19-24) mmol/L ABG O2 Saturation 98.4 H (94-97) % ABG Glucose (75-99) mg/dL Hemoglobin (13.0-17.5) gm/dL Glucose (74-99) mg/dL POC Glucose (mg/dL) 176 H 163 H (75-99) mg/dL Calcium (8.4-10.2) mg/dL Magnesium (1.6-2.3) mg/dL Total Protein (6.3-8.2) g/dL Albumin (3.5-5.0) g/dL Arterial Blood Glucose (75-99) mg/dL Crossmatch 03/15/20 Range/Units 14:49 RBC 3.46 L (4.30-5.90) m/uL Hgb 10.9 L (13.0-17.5) gm/dL Hct 31.2 L (39.0-53.0) % Plt Count 113 L (150-450) k/uL Neutrophils # 7.9 H (1.3-7.7) k/uL ABG pH (7.35-7.45) ABG pCO2 (35-45) mmHg ABG pO2 (83-108) mmHg ABG HCO3 (21-25) mmol/L ABG Total CO2 (19-24) mmol/L ABG O2 Saturation (94-97) % ABG Glucose (75-99) mg/dL Hemoglobin (13.0-17.5) gm/dL Glucose (74-99) mg/dL POC Glucose (mg/dL) (75-99) mg/dL Calcium (8.4-10.2) mg/dL Magnesium (1.6-2.3) mg/dL Total Protein (6.3-8.2) g/dL Albumin (3.5-5.0) g/dL Arterial Blood Glucose (75-99) mg/dL Crossmatch Assessment and Plan Assessment: Status post coronary artery bypass graft 2 vessel. Postoperative day 0. Recent cath on 03/08/2020 showed mid LAD 99% stenosis Coronary artery disease history of stent placement Uncontrolled diabetes type 2 A1c level 8.9 on 03/08/2020 Hypertension Hyperlipidemia History of [place] Chronic CHF with mildly reduced ejection fraction 45% Ischemic cardiomyopathy Previous history of smoking Diabetic peripheral neuropathy Bilateral lower extremity lymphedema DVT prophylaxis Plan: Patient is currently extubated and chest x-ray showed no evidence of pneu mothorax. Continue with incentive spirometry and pain management. Continue current medications. Patient is metformin and insulin lispro 3 times daily. Patient will need basal insulin. Currently on insulin drip. will transition to subcu insulin once sugars are better controlled. Pulmonary cardiology and CT surgery is on board. We will follow-up closely and further recommendations based on the clinical course. Time with Patient: Greater than 30
[2020-03-16 00:04] LABS: Glucose,Whole Blood 133 mg/dL (75-99)
[2020-03-16] MEDS: KETOROLAC 30 MG/ML 1 ML VIAL IVP SCH ×4 (00:39→17:27)
[2020-03-16 01:02] LABS: Glucose,Whole Blood 134 mg/dL (75-99)
[2020-03-16 02:07] LABS: Glucose,Whole Blood 129 mg/dL (75-99)
[2020-03-16 03:00] LABS: Glucose,Whole Blood 134 mg/dL (75-99)
[2020-03-16] MEDS: HYDROcodone/APAP 7.5-325MG 1 EACH TAB PO PRN ×4 (03:29→21:09)
[2020-03-16 04:07] LABS: Glucose,Whole Blood 135 mg/dL (75-99)
[2020-03-16 04:26] LABS: Basophils % (A) 0 %; Eosinophils # (A) 0.1 k/uL (0-0.7); Eosinophils % (A) 1 %; HCT 35.3 % (39.0-53.0); HGB 12.1 gm/dL (13.0-17.5); Lymphocytes # (A) 1.5 k/uL (1.0-4.8); Lymphocytes % (A) 16 %; MCH 31.3 pg (25.0-35.0); MCHC 34.4 g/dL (31.0-37.0); MCV 91.2 fL (80.0-100.0); Mean Platelet Volume 10.1; Monocytes # (A) 0.4 k/uL (0-1.0); Monocytes % (A) 4 %; Neutrophils # (A) 7.2 k/uL (1.3-7.7); Neutrophils % (A) 78 %; Platelet Count 117 k/uL (150-450); RBC 3.87 m/uL (4.30-5.90); RDW 13.5 % (11.5-15.5); WBC 9.3 k/uL (3.8-10.6)
[2020-03-16 04:45] LABS: Ionized Calcium 4.9 mg/dL (4.5-5.3)
[2020-03-16 04:54] LABS: ALT 14 U/L (4-49); AST 19 U/L (17-59); African American GFR (CKD) >90 (>60 ml/min/1.73 sqM); Albumin 3.3 g/dL (3.5-5.0); Alkaline Phosphatase 75 U/L (38-126); Anion Gap 5 mmol/L; Blood Urea Nitrogen 11 mg/dL (9-20); Calcium 8.3 mg/dL (8.4-10.2); Carbon Dioxide 24 mmol/L (22-30); Chloride 107 mmol/L (98-107); Glucose 122 mg/dL (74-99); Magnesium 2.1 mg/dL (1.6-2.3); Non-African American GFR(CKD) >90 (>60 ml/min/1.73 sqM); Potassium 3.7 mmol/L (3.5-5.1); Sodium 136 mmol/L (137-145); Total Bilirubin 0.9 mg/dL (0.2-1.3); Total Protein 5.3 g/dL (6.3-8.2)
[2020-03-16 05:13] LABS: Glucose,Whole Blood 159 mg/dL (75-99)
[2020-03-16] MEDS ORDERED: POTASSIUM CHLORIDE ER 20 MEQ TAB.ER PO SCH (06:00)
[2020-03-16 06:09] LABS: Glucose,Whole Blood 167 mg/dL (75-99)
[2020-03-16 06:53] LABS: Glucose,Whole Blood 156 mg/dL (75-99)
[2020-03-16] MEDS: IPRATROPIUM-ALBUTEROL 3 ML NEB INHALATION SCH ×4 (07:27→20:19)
[2020-03-16] MEDS ORDERED: ACETAMINOPHEN TAB 500 MG TAB PO PRN (07:28)
[2020-03-16] MEDS ORDERED: MELATONIN 3 MG TABLET PO PRN (07:29)
--- NOTE | 2020-03-16 07:44 | XR ---
EXAMINATION TYPE: XR chest 1V portable DATE OF EXAM: 03/16/2020 CLINICAL HISTORY: Postopen cardiac surgery progress study. TECHNIQUE: Single AP portable upright view of the chest is obtained. COMPARISON: Chest x-ray from one day earlier. FINDINGS: Interval extubation with removal of endotracheal and orogastric tubes. Overlying sternal w ires and mediastinal clips redemonstrated. Stable right internal jugular [place]-Shahriar catheter. Stable l eft-sided chest tube. No pneumothorax identified. Cardiomegaly and background chronic parenchymal change with patchy bibasilar opacities. Somewhat low lung volumes redemonstrated. Multilevel spurring in thoracic spine again seen. IMPRESSION: Interval extubation. Postoperative changes along with cardiomegaly and low lung volumes r edemonstrated. Developing patchy bibasilar atelectasis noted. No left-sided pneumothorax with left-si ded chest tube in place.
[2020-03-16 08:36] LABS: Glucose,Whole Blood 205 mg/dL (75-99)
[2020-03-16] MEDS: HEPARIN SODIUM,PORCINE 5,000 UNIT/ML 1 ML VIAL SQ SCH ×2 (08:57→17:28)
[2020-03-16] MEDS: ATORVASTATIN 40 MG TAB PO SCH (08:57)
[2020-03-16] MEDS: CLOPIDOGREL 75 MG TAB PO SCH (08:57)
[2020-03-16] MEDS: ASPIRIN 325 MG TAB PO SCH (08:57)
[2020-03-16] MEDS: BACLOFEN 10 MG TAB PO PRN (08:58)
--- NOTE | 2020-03-16 08:58 | P.PN ---
Subjective Progress Note Date: 03/16/20 Principal diagnosis: Coronary artery disease. Previous medical history of myocardial infarction, stent to the RCA, hypertension, hyperlipidemia, ischemic cardiomyopathy, chronic systolic heart failure with EF 45%, uncontrolled type 2 diabetes mellitus with hyperglycemia and recent hemoglobin A1c 8.9% and peripheral neuropathy, current tobacco dependence and chronic back pain on chronic narcotics with a pain contract from a pain specialist. POD #1 off-pump coronary artery bypass grafting 2 with sequential left internal mammary artery to the second diagonal and left anterior descending coronary artery. The patient's currently sitting up in a recliner in the intensive care unit in no acute distress. He was successfully placed today at 15:00. He states pain is mostly controlled with current medication regimen, denies shortness of breath. Remains in normal sinus rhythm and hemodynamically stable on no inotropes or pressors. Right internal jugular Graham, left radial arterial line present. No new concerns. Objective - Vital Signs Vital signs: Vital Signs Temp 99.9 F H 03/16/20 07:00 Pulse 80 03/16/20 07:39 Resp 11 L 03/16/20 07:00 BP 112/67 03/16/20 07:00 Pulse Ox 94 L 03/16/20 07:00 Intake & Output 03/15/20 03/16/20 03/16/20 18:59 06:59 18:59 Intake Total 6774.888 1133.293 80.5 Output Total 1490 962 40 Balance 421.666 230.293 40.5 Weight 116 kg 119.3 kg Intake: IV 1295 1124.5 80.5 Albumin Human 5% 250 ml 750 In Empty Bag 1 bag @ 250 mls/hr IVPB Q1HR PRN Rx#: [id number] CO/CI (Normal Saline) 90 400 20 Lactated Ringers 1,000 ml 350 600 50 @ 50 mls/hr IV .Q20H [facility] Rx#:[id number] Nitroglycerin-D5w Pmx 50 16.5 1.5 mg In Dextrose/Water 1 250ml.bag @ 5 MCG/MIN 1.5 mls/hr IV .Q24H [facility] Rx#: [id number] Normal Saline Pressure 72 108 9 Bag Intake, IV Titration 616.666 67.793 Amount Clevidipine Butyrate 25 9.733 mg In Empty Bag 1 bag @ 1 MG/HR 2 mls/hr IV .Q24H [facility] Rx#:[id number] Insulin Regular 100 unit 27.472 17.793 In Sodium Chloride 0.9% 100 ml @ Per Protocol IV .Q0M [facility] Rx#:[id number] Magnesium Sulfate-D5w Pmx 300 1 gm In Dextrose/Water 1 100ml.bag @ 100 mls/hr IVPB Q1H [facility] Rx#: [id number] Nitroglycerin-D5w Pmx 50 3.825 mg In Dextrose/Water 1 250ml.bag @ 5 MCG/MIN 1.5 mls/hr IV .Q24H [facility] Rx#: [id number] Potassium Chloride 20 meq 200 In Water For Injection 1 100ml.bag @ 100 mls/hr IVPB Q1H [facility] Rx#: [id number] ceFAZolin 2 gm In Sodium 50 50 Chloride 0.9% 50 ml @ 100 mls/hr IVPB Q8HR [facility] Rx# :[id number] propofoL 1,000 mg In 25.636 Empty Bag 1 bag @ Titrate IV .Q0M [facility] Rx#: [id number] Output: Chest Tube Drainage 188 462 20 Left Pleural/Mediastinal 188 462 20 Urine 1052 500 20 Estimated Blood Loss 250 Other: Voiding Method Indwelling Catheter Indwelling Catheter ABP, PAP, CO, CI - Last Documented Arterial Blood Pressure 110/55 Pulmonary Artery Pressure 21/10 Cardiac Output 5.6 Cardiac Index 2.4 - Constitutional General appearance: Present: cooperative, no acute distress, obese - Respiratory Details: Lungs sounds diminished bilaterally with crackles in the bases. Respirations even, nonlabored. Currently on 2 L nasal cannula with oxygen saturation 95%. Able to achieve 750 mL and since spirometry. Strong cough. Mediastinal/left pleural chest tube present, connected to continuous wall suction, 320 mL serosan guineous drainage overnight, 650 mL since surgery, no air leak present. - Cardiovascular Details: S1, S2 present. Regular rate and rhythm, sinus rhythm on telemetry. Sternum stable. Palpable peripheral pulses bilaterally. Bilateral lower extremities trace edema present. No calf pain or tenderness noted. Right internal jugular Graham/Cordis, left radial arterial line present. Last CO/CI 7.2/3.0 on no inotropes or pressors. Heart hugger in place with patient demonstrating appropriate use. Antiembolism stockings, SCDs present. - Gastrointestinal Gastrointestinal Comment(s): Abdomen soft, nontender, nondistended. Hypoactive bowel sounds present 4 quadrants. Tolerating full liquid diet. Positive flatus, negative bowel movement. - Genitourinary Genitourinary Comment(s): Melchor present draining clear, yellow urine. Output 30-60 mL per hour overnight, down to 20 mL/h this morning. - Integumentary Integumentary Comment(s): Skin is warm and dry with evidence of good perfusion. Anterior chest incision well approximated and covered with dry intact dressing. - Neurologic Neurologic: Present: CNII-XII intact - Musculoskeletal Musculoskeletal: Present: gait normal, strength equal bilaterally - Psychiatric Psychiatric: Present: A&O x's 3, appropriate affect, intact judgment & insight - Allied health notes Allied health notes reviewed: nursing - Labs CBC & Chem 7: 03/16/20 04:10 03/16/20 04:10 Labs: Abnormal Lab Results - Last 24 Hours (Table) 03/08/20 03/15/20 03/15/20 Range/Units 14:01 08:18 09:24 RBC (4.30-5.90) m/uL Hgb (13.0-17.5) gm/dL Hct (39.0-53.0) % Plt Count (150-450) k/uL Neutrophils # (1.3-7.7) k/uL ABG pH (7.35-7.45) ABG pCO2 46 H (35-45) mmHg ABG pO2 154 H 138 H (83-108) mmHg ABG HCO3 27 H (21-25) mmol/L ABG Total CO2 28 H 26 H (19-24) mmol/L ABG O2 Saturation 99.7 H 99.7 H (94-97) % ABG Glucose 190 H 176 H (75-99) mg/dL Hemoglobin 12.7 L (13.0-17.5) gm/dL Sodium (137-145) mmol/L Glucose (74-99) mg/dL POC Glucose (mg/dL) (75-99) mg/dL Calcium (8.4-10.2) mg/dL Magnesium (1.6-2.3) mg/dL Total Protein (6.3-8.2) g/dL Albumin (3.5-5.0) g/dL Arterial Blood Glucose 190 H 176 H (75-99) mg/dL Crossmatch See Detail 03/15/20 03/15/20 03/15/20 Range/Units 09:59 10:18 11:00 RBC 3.84 L (4.30-5.90) m/uL Hgb 12.0 L (13.0-17.5) gm/dL Hct 34.5 L (39.0-53.0) % Plt Count 136 L (150-450) k/uL Neutrophils # (1.3-7.7) k/uL ABG pH (7.35-7.45) ABG pCO2 (35-45) mmHg ABG pO2 156 H 113 H (83-108) mmHg ABG HCO3 26 H (21-25) mmol/L ABG Total CO2 26 H 27 H (19-24) mmol/L ABG O2 Saturation 99.9 H 99.0 H (94-97) % ABG Glucose 184 H 187 H (75-99) mg/dL Hemoglobin 12.3 L 12.3 L (13.0-17.5) gm/dL Sodium (137-145) mmol/L Glucose (74-99) mg/dL POC Glucose (mg/dL) (75-99) mg/dL Calcium (8.4-10.2) mg/dL Magnesium (1.6-2.3) mg/dL Total Protein (6.3-8.2) g/dL Albumin (3.5-5.0) g/dL Arterial Blood Glucose 184 H 187 H (75-99) mg/dL Crossmatch 03/15/20 03/15/20 03/15/20 Range/Units 11:00 11:01 11:32 RBC (4.30-5.90) m/uL Hgb (13.0-17.5) gm/dL Hct (39.0-53.0) % Plt Count (150-450) k/uL Neutrophils # (1.3-7.7) k/uL ABG pH (7.35-7.45) ABG pCO2 (35-45) mmHg ABG pO2 (83-108) mmHg ABG HCO3 (21-25) mmol/L ABG Total CO2 (19-24) mmol/L ABG O2 Saturation (94-97) % ABG Glucose (75-99) mg/dL Hemoglobin (13.0-17.5) gm/dL Sodium (137-145) mmol/L Glucose 179 H (74-99) mg/dL POC Glucose (mg/dL) 200 H 206 H (75-99) mg/dL Calcium 8.1 L (8.4-10.2) mg/dL Magnesium 1.4 L (1.6-2.3) mg/dL Total Protein 5.1 L (6.3-8.2) g/dL Albumin 3.0 L (3.5-5.0) g/dL Arterial Blood Glucose (75-99) mg/dL Crossmatch 03/15/20 03/15/20 03/15/20 Range/Units 11:36 13:13 14:08 RBC (4.30-5.90) m/uL Hgb (13.0-17.5) gm/dL Hct (39.0-53.0) % Plt Count (150-450) k/uL Neutrophils # (1.3-7.7) k/uL ABG pH (7.35-7.45) ABG pCO2 46 H (35-45) mmHg ABG pO2 185 H (83-108) mmHg ABG HCO3 26 H (21-25) mmol/L ABG Total CO2 28 H (19-24) mmol/L ABG O2 Saturation 99.6 H (94-97) % ABG Glucose (75-99) mg/dL Hemoglobin (13.0-17.5) gm/dL Sodium (137-145) mmol/L Glucose (74-99) mg/dL POC Glucose (mg/dL) 178 H 176 H (75-99) mg/dL Calcium (8.4-10.2) mg/dL Magnesium (1.6-2.3) mg/dL Total Protein (6.3-8.2) g/dL Albumin (3.5-5.0) g/dL Arterial Blood Glucose (75-99) mg/dL Crossmatch 03/15/20 03/15/20 03/15/20 Range/Units 14:45 14:47 14:49 RBC 3.46 L (4.30-5.90) m/uL Hgb 10.9 L (13.0-17.5) gm/dL Hct 31.2 L (39.0-53.0) % Plt Count 113 L (150-450) k/uL Neutrophils # 7.9 H (1.3-7.7) k/uL ABG pH 7.32 L (7.35-7.45) ABG pCO2 53 H (35-45) mmHg ABG pO2 115 H (83-108) mmHg ABG HCO3 27 H (21-25) mmol/L ABG Total CO2 29 H (19-24) mmol/L ABG O2 Saturation 98.4 H (94-97) % ABG Glucose (75-99) mg/dL Hemoglobin (13.0-17.5) gm/dL Sodium (137-145) mmol/L Glucose (74-99) mg/dL POC Glucose (mg/dL) 163 H (75-99) mg/dL Calcium (8.4-10.2) mg/dL Magnesium (1.6-2.3) mg/dL Total Protein (6.3-8.2) g/dL Albumin (3.5-5.0) g/dL Arterial Blood Glucose (75-99) mg/dL Crossmatch 03/15/20 03/15/20 03/15/20 Range/Units 16:00 17:01 17:03 RBC 3.64 L (4.30-5.90) m/uL Hgb 11.1 L (13.0-17.5) gm/dL Hct 32.9 L (39.0-53.0) % Plt Count 106 L (150-450) k/uL Neutrophils # (1.3-7.7) k/uL ABG pH (7.35-7.45) ABG pCO2 (35-45) mmHg ABG pO2 (83-108) mmHg ABG HCO3 (21-25) mmol/L ABG Total CO2 (19-24) mmol/L ABG O2 Saturation (94-97) % ABG Glucose (75-99) mg/dL Hemoglobin (13.0-17.5) gm/dL Sodium (137-145) mmol/L Glucose (74-99) mg/dL POC Glucose (mg/dL) 138 H 109 H (75-99) mg/dL Calcium (8.4-10.2) mg/dL Magnesium (1.6-2.3) mg/dL Total Protein (6.3-8.2) g/dL Albumin (3.5-5.0) g/dL Arterial Blood Glucose (75-99) mg/dL Crossmatch 03/15/20 03/15/20 03/15/20 Range/Units 18:11 18:56 20:11 RBC (4.30-5.90) m/uL Hgb (13.0-17.5) gm/dL Hct (39.0-53.0) % Plt Count (150-450) k/uL Neutrophils # (1.3-7.7) k/uL ABG pH (7.35-7.45) ABG pCO2 (35-45) mmHg ABG pO2 (83-108) mmHg ABG HCO3 (21-25) mmol/L ABG Total CO2 (19-24) mmol/L ABG O2 Saturation (94-97) % ABG Glucose (75-99) mg/dL Hemoglobin (13.0-17.5) gm/dL Sodium (137-145) mmol/L Glucose (74-99) mg/dL POC Glucose (mg/dL) 123 H 132 H 126 H (75-99) mg/dL Calcium (8.4-10.2) mg/dL Magnesium (1.6-2.3) mg/dL Total Protein (6.3-8.2) g/dL Albumin (3.5-5.0) g/dL Arterial Blood Glucose (75-99) mg/dL Crossmatch 03/15/20 03/15/20 03/15/20 Range/Units 21:06 22:16 23:08 RBC (4.30-5.90) m/uL Hgb (13.0-17.5) gm/dL Hct (39.0-53.0) % Plt Count (150-450) k/uL Neutrophils # (1.3-7.7) k/uL ABG pH (7.35-7.45) ABG pCO2 (35-45) mmHg ABG pO2 (83-108) mmHg ABG HCO3 (21-25) mmol/L ABG Total CO2 (19-24) mmol/L ABG O2 Saturation (94-97) % ABG Glucose (75-99) mg/dL Hemoglobin (13.0-17.5) gm/dL Sodium (137-145) mmol/L Glucose (74-99) mg/dL POC Glucose (mg/dL) 128 H 128 H 128 H (75-99) mg/dL Calcium (8.4-10.2) mg/dL Magnesium (1.6-2.3) mg/dL Total Protein (6.3-8.2) g/dL Albumin (3.5-5.0) g/dL Arterial Blood Glucose (75-99) mg/dL Crossmatch 03/16/20 03/16/20 03/16/20 Range/Units 00:03 01:01 02:03 RBC (4.30-5.90) m/uL Hgb (13.0-17.5) gm/dL Hct (39.0-53.0) % Plt Count (150-450) k/uL Neutrophils # (1.3-7.7) k/uL ABG pH (7.35-7.45) ABG pCO2 (35-45) mmHg ABG pO2 (83-108) mmHg ABG HCO3 (21-25) mmol/L ABG Total CO2 (19-24) mmol/L ABG O2 Saturation (94-97) % ABG Glucose (75-99) mg/dL Hemoglobin (13.0-17.5) gm/dL Sodium (137-145) mmol/L Glucose (74-99) mg/dL POC Glucose (mg/dL) 133 H 134 H 129 H (75-99) mg/dL Calcium (8.4-10.2) mg/dL Magnesium (1.6-2.3) mg/dL Total Protein (6.3-8.2) g/dL Albumin (3.5-5.0) g/dL Arterial Blood Glucose (75-99) mg/dL Crossmatch 03/16/20 03/16/20 03/16/20 Range/Units 02:58 04:05 04:10 RBC 3.87 L (4.30-5.90) m/uL Hgb 12.1 L (13.0-17.5) gm/dL Hct 35.3 L (39.0-53.0) % Plt Count 117 L (150-450) k/uL Neutrophils # (1.3-7.7) k/uL ABG pH (7.35-7.45) ABG pCO2 (35-45) mmHg ABG pO2 (83-108) mmHg ABG HCO3 (21-25) mmol/L ABG Total CO2 (19-24) mmol/L ABG O2 Saturation (94-97) % ABG Glucose (75-99) mg/dL Hemoglobin (13.0-17.5) gm/dL Sodium (137-145) mmol/L Glucose (74-99) mg/dL POC Glucose (mg/dL) 134 H 135 H (75-99) mg/dL Calcium (8.4-10.2) mg/dL Magnesium (1.6-2.3) mg/dL Total Protein (6.3-8.2) g/dL Albumin (3.5-5.0) g/dL Arterial Blood Glucose (75-99) mg/dL Crossmatch 03/16/20 03/16/20 03/16/20 Range/Units 04:10 05:10 06:08 RBC (4.30-5.90) m/uL Hgb (13.0-17.5) gm/dL Hct (39.0-53.0) % Plt Count (150-450) k/uL Neutrophils # (1.3-7.7) k/uL ABG pH (7.35-7.45) ABG pCO2 (35-45) mmHg ABG pO2 (83-108) mmHg ABG HCO3 (21-25) mmol/L ABG Total CO2 (19-24) mmol/L ABG O2 Saturation (94-97) % ABG Glucose (75-99) mg/dL Hemoglobin (13.0-17.5) gm/dL Sodium 136 L (137-145) mmol/L Glucose 122 H (74-99) mg/dL POC Glucose (mg/dL) 159 H 167 H (75-99) mg/dL Calcium 8.3 L (8.4-10.2) mg/dL Magnesium (1.6-2.3) mg/dL Total Protein 5.3 L (6.3-8.2) g/dL Albumin 3.3 L (3.5-5.0) g/dL Arterial Blood Glucose (75-99) mg/dL Crossmatch 03/16/20 03/16/20 Range/Units 06:52 08:35 RBC (4.30-5.90) m/uL Hgb (13.0-17.5) gm/dL Hct (39.0-53.0) % Plt Count (150-450) k/uL Neutrophils # (1.3-7.7) k/uL ABG pH (7.35-7.45) ABG pCO2 (35-45) mmHg ABG pO2 (83-108) mmHg ABG HCO3 (21-25) mmol/L ABG Total CO2 (19-24) mmol/L ABG O2 Saturation (94-97) % ABG Glucose (75-99) mg/dL Hemoglobin (13.0-17.5) gm/dL Sodium (137-145) mmol/L Glucose (74-99) mg/dL POC Glucose (mg/dL) 156 H 205 H (75-99) mg/dL Calcium (8.4-10.2) mg/dL Magnesium (1.6-2.3) mg/dL Total Protein (6.3-8.2) g/dL Albumin (3.5-5.0) g/dL Arterial Blood Glucose (75-99) mg/dL Crossmatch - Imaging and Cardiology Chest x-ray: report reviewed, image reviewed Assessment and Plan Assessment: 1. Coronary artery disease, status post 2 vessel CABG 2. History of myocardial infarction, stent the RCA 3. Hypertension 4. Hyperlipidemia 5. Ischemic cardiomyopathy, chronic systolic heart failure with EF 45% 6. Uncontrolled type 2 diabetes mellitus with hyperglycemia and recent hemoglobin A1c 8.9%, peripheral neuropathy 7. Current tobacco dependence 8. Chronic back pain on chronic narcotics with pain contract for pain specialist Plan: 1. Continue aspirin, statin, Plavix, beta [place] therapy. Will increase beta [place] therapy as tolerated. 2. Wean O2 as tolerated. Encourage incentive spirometry 10 times every hour while awake. Bronchodilators per pulmonology 3. Increase activity, ambulate as tolerated. PT/OT/cardiac rehab following 4. Will monitor daily labs and x-rays. Electrolytes replacement per protocol 5. Insulin management per primary care service. 6. Pain controlled current medication regimen. 7. GI/DVT prophylaxis 8. Discontinue Graham. Connect Cordis to continue CVP monitoring. 9. Mediastinal chest tube discontinued without incident. Leave pleural chest tube for another 24 hours. 10. More recommendations to follow based on patient's progress Time with Patient: Greater than 30
[2020-03-16] MEDS ORDERED: MAGNESIUM HYDROXIDE 2,400 MG/10 ML CUP PO PRN (09:00)
[2020-03-16] MEDS ORDERED: METOPROLOL TARTRATE 12.5 MG TAB PO SCH (09:00)
[2020-03-16] MEDS ORDERED: PANTOPRAZOLE 40 MG/10 ML VIAL IVP SCH (09:00)
[2020-03-16] MEDS ORDERED: bisacodyL 10 MG SUPP RECTAL PRN (09:00)
[2020-03-16] MEDS: LACTATED RINGERS 1,000 ML IV SCH (10:00)
--- NOTE | 2020-03-16 10:12 | PN ---
PROGRESS NOTE Mr. Suarez is a 54-year-old male with known history of coronary artery disease, status post coronary bypass grafting and prior percutaneous revascularization. He is extubated, sitting up in the chair, feeling well. He is in sinus mechanism. He has no evidence of malignant arrhythmia. He has some soreness in the chest related to the BRANDT to the LAD and diagonal branch. He continues to be at this time on aspirin once a day, Lipitor 40 mg daily, metoprolol tartrate 12.5 mg twice a day. PHYSICAL EXAMINATION: Blood pressure 110/50 with a heart rate in the 80s. LUNGS: No wheezes. HEART: Regular rate and rhythm, S1, S2. No S3. No rub appreciated. ABDOMEN: Soft, nontender. EXTREMITIES: No edema. LAB DATA: Revealed a hemoglobin of 12.1, BUN and creatinine 11 and 0.87, potassium 3.7. His chest x-ray shows no acute infiltrate. IMPRESSION: 1. Status post coronary bypass grafting. 2. Prior history of percutaneous revascularization with stenting of the LAD. 3. Patent stenting of the RCA. 4. History of hyperlipidemia. RECOMMENDATION: From the cardiac standpoint, will continue present therapy, continue the incentive spirometry. Follow his blood pressure and depending on that, further adjustment of his regimen will be made. MMODL / IJN: [id number] /
[2020-03-16 10:28] LABS: Glucose,Whole Blood 155 mg/dL (75-99)
[2020-03-16 10:59] LABS: Glucose,Whole Blood 131 mg/dL (75-99)
[2020-03-16 11:47] LABS: Glucose,Whole Blood 125 mg/dL (75-99)
[2020-03-16 13:04] LABS: Glucose,Whole Blood 126 mg/dL (75-99)
--- NOTE | 2020-03-16 14:48 | P.PN ---
Subjective Progress Note Date: 03/16/20 Principal diagnosis: Status post CABG 2. Postoperative day #1. istory of present illness: This is a 54-year-old white male patient of Dr. Quick with history of coronary artery disease with previous intervention and stenting of the RCA, previous myocardial infarction, hypertension, hyperlipidemia, ischemic cardiomyopathy with an EF of 45%, uncontrolled type 2 diabetes mellitus with A1c level of 10.3%, chronic smoker, peripheral vascular disease. Patient was recently was experiencing mild anginal symptoms, and increased lower extremity edema. He underwent heart catheterization on 03/08/2020, showing patent RCA stent, mid LAD 99% stenosis at the bifurcation of the diagonal, patient was referred to cardiothoracic surgery for surgical revascularization. Today on 03/15/2020 patient underwent off-pump CABG 2 with sequential BRANDT to the second diagonal and LAD. worsening the patient in the postoperative period in the intensive care unit. Currently sedated, on mechanical ventilator, on assist-control mode with a rate of 12, tidal volume 600, FiO2 of 50% and PEEP of 10. Postoperative blood gases showed pO2 of 185, pCO2 of 46, and pH of 7.37, on FiO2 of 50%. FiO2 was dropped down to 40%. patient is hemodynamically stable, on lactated Ringer's at a rate of 50, insulin drip is at 5 units per hour, nitroglycerin drip is at 5 mics per minute, Diprivan drip has been turned off. PA pressures 28/15, cardiac output is 4.7, cardiac index is 2.0. One mediastinal and left pleural chest tube a total of 140 mL of sanguinous output, hemodynamically patient is stable, in sinus mechanism with a controlled rate. postoperative chest x-ray shows ET tube, NG tube Austin-Shahriar catheter in appropriate positions, lungs are clear no pleural effusion. Patient was reevaluated today on 03/16/20, remains in the ICU, patient is postoperative day #1. Patient is sitting in her recliner in the ICU, denies any specific complaints, denies any pain and denies any shortness of breath, he is hemodynamically stable, on 2 L nasal cannula. He is on insulin drip at 7 units per hour. He is in sinus rhythm rate 75/m, and overall the patient is doing great. Chest x-ray showed mostly postoperative changes, cardiomegaly, low lung volumes, bibasilar atelectasis. CBC is relatively normal. Basic metabolic profile is normal. Objective - Vital Signs Vital signs: Vital Signs Temp 99.9 F H 03/16/20 07:00 Pulse 80 03/16/20 07:39 Resp 11 L 03/16/20 07:00 BP 112/67 03/16/20 07:00 Pulse Ox 94 L 03/16/20 07:00 Intake & Output 03/15/20 03/16/20 03/16/20 18:59 06:59 18:59 Intake Total 1469.786 1898.293 108.460 Output Total 1490 962 40 Balance 421.666 230.293 68.460 Weight 116 kg 119.3 kg Intake: IV 1295 1124.5 80.5 Albumin Human 5% 250 ml 750 In Empty Bag 1 bag @ 250 mls/hr IVPB Q1HR PRN Rx#: [id number] CO/CI (Normal Saline) 90 400 20 Lactated Ringers 1,000 ml 350 600 50 @ 50 mls/hr IV .Q20H [facility] Rx#:[id number] Nitroglycerin-D5w Pmx 50 16.5 1.5 mg In Dextrose/Water 1 250ml.bag @ 5 MCG/MIN 1.5 mls/hr IV .Q24H [facility] Rx#: [id number] Normal Saline Pressure 72 108 9 Bag Intake, IV Titration 616.666 67.793 27.960 Amount Clevidipine Butyrate 25 9.733 mg In Empty Bag 1 bag @ 1 MG/HR 2 mls/hr IV .Q24H [facility] Rx#:[id number] Insulin Regular 100 unit 27.472 17.793 27.960 In Sodium Chloride 0.9% 100 ml @ Per Protocol IV .Q0M [facility] Rx#:[id number] Magnesium Sulfate-D5w Pmx 300 1 gm In Dextrose/Water 1 100ml.bag @ 100 mls/hr IVPB Q1H [facility] Rx#: [id number] Nitroglycerin-D5w Pmx 50 3.825 mg In Dextrose/Water 1 250ml.bag @ 5 MCG/MIN 1.5 mls/hr IV .Q24H [facility] Rx#: [id number] Potassium Chloride 20 meq 200 In Water For Injection 1 100ml.bag @ 100 mls/hr IVPB Q1H [facility] Rx#: [id number] ceFAZolin 2 gm In Sodium 50 50 Chloride 0.9% 50 ml @ 100 mls/hr IVPB Q8HR [facility] Rx# :[id number] propofoL 1,000 mg In 25.636 Empty Bag 1 bag @ Titrate IV .Q0M [facility] Rx#: [id number] Output: Chest Tube Drainage 188 462 20 Left Pleural/Mediastinal 188 462 20 Urine 1052 500 20 Estimated Blood Loss 250 Other: Voiding Method Indwelling Catheter Indwelling Catheter ABP, PAP, CO, CI - Last Documented Arterial Blood Pressure 110/55 Pulmonary Artery Pressure 21/10 Cardiac Output 5.6 Cardiac Index 2.4 - Exam Physical Exam: Revealed 54-year-old white male in no distress. Head:, Atraumatic, normocephalic. HEENT:[Neck is supple.] [No neck masses.] [No thyromegaly.] [No JVD.] Chest: [Clear throughout, no crackles, no rhonchi, no wheezes.] Mediastinal/left pleural chest tube present, connected to continuous wall suction, 320 mL sero sanguineous drainage overnight, 650 mL since surgery, no air leak present. Cardiac Exam: [Normal S1 and S2, no S3 gallop, no murmur.]Last CO/CI 7.2/3.0 on no inotropes or pressors. Heart hugger in place with patient demonstrating appropriate use. Antiembolism stockings, SCDs present. Abdomen: [Soft, nontender, no megaly, no rebound, no guarding, normal bowel sounds.] Extremities: [No clubbing, no edema, no cyanosis.] Neurological Exam: [No focal neurologic deficit.] Alert and oriented 3. Psychiatric: Normal mood affect and normal mental status examination. Skin: No rashes.Skin is warm and dry with evidence of good perfusion. Anterior chest incision well approximated and covered with dry intact dressing. - Labs CBC & Chem 7: 03/16/20 04:10 03/16/20 04:10 Labs: Abnormal Lab Results - Last 24 Hours (Table) 03/08/20 03/15/20 03/15/20 Range/Units 14:01 14:45 14:47 RBC (4.30-5.90) m/uL Hgb (13.0-17.5) gm/dL Hct (39.0-53.0) % Plt Count (150-450) k/uL Neutrophils # (1.3-7.7) k/uL ABG pH 7.32 L (7.35-7.45) ABG pCO2 53 H (35-45) mmHg ABG pO2 115 H (83-108) mmHg ABG HCO3 27 H (21-25) mmol/L ABG Total CO2 29 H (19-24) mmol/L ABG O2 Saturation 98.4 H (94-97) % Sodium (137-145) mmol/L Glucose (74-99) mg/dL POC Glucose (mg/dL) 163 H (75-99) mg/dL Calcium (8.4-10.2) mg/dL Total Protein (6.3-8.2) g/dL Albumin (3.5-5.0) g/dL Crossmatch See Detail 03/15/20 03/15/20 03/15/20 Range/Units 14:49 16:00 17:01 RBC 3.46 L (4.30-5.90) m/uL Hgb 10.9 L (13.0-17.5) gm/dL Hct 31.2 L (39.0-53.0) % Plt Count 113 L (150-450) k/uL Neutrophils # 7.9 H (1.3-7.7) k/uL ABG pH (7.35-7.45) ABG pCO2 (35-45) mmHg ABG pO2 (83-108) mmHg ABG HCO3 (21-25) mmol/L ABG Total CO2 (19-24) mmol/L ABG O2 Saturation (94-97) % Sodium (137-145) mmol/L Glucose (74-99) mg/dL POC Glucose (mg/dL) 138 H 109 H (75-99) mg/dL Calcium (8.4-10.2) mg/dL Total Protein (6.3-8.2) g/dL Albumin (3.5-5.0) g/dL Crossmatch 03/15/20 03/15/20 03/15/20 Range/Units 17:03 18:11 18:56 RBC 3.64 L (4.30-5.90) m/uL Hgb 11.1 L (13.0-17.5) gm/dL Hct 32.9 L (39.0-53.0) % Plt Count 106 L (150-450) k/uL Neutrophils # (1.3-7.7) k/uL ABG pH (7.35-7.45) ABG pCO2 (35-45) mmHg ABG pO2 (83-108) mmHg ABG HCO3 (21-25) mmol/L ABG Total CO2 (19-24) mmol/L ABG O2 Saturation (94-97) % Sodium (137-145) mmol/L Glucose (74-99) mg/dL POC Glucose (mg/dL) 123 H 132 H (75-99) mg/dL Calcium (8.4-10.2) mg/dL Total Protein (6.3-8.2) g/dL Albumin (3.5-5.0) g/dL Crossmatch 03/15/20 03/15/20 03/15/20 Range/Units 20:11 21:06 22:16 RBC (4.30-5.90) m/uL Hgb (13.0-17.5) gm/dL Hct (39.0-53.0) % Plt Count (150-450) k/uL Neutrophils # (1.3-7.7) k/uL ABG pH (7.35-7.45) ABG pCO2 (35-45) mmHg ABG pO2 (83-108) mmHg ABG HCO3 (21-25) mmol/L ABG Total CO2 (19-24) mmol/L ABG O2 Saturation (94-97) % Sodium (137-145) mmol/L Glucose (74-99) mg/dL POC Glucose (mg/dL) 126 H 128 H 128 H (75-99) mg/dL Calcium (8.4-10.2) mg/dL Total Protein (6.3-8.2) g/dL Albumin (3.5-5.0) g/dL Crossmatch 03/15/20 03/16/20 03/16/20 Range/Units 23:08 00:03 01:01 RBC (4.30-5.90) m/uL Hgb (13.0-17.5) gm/dL Hct (39.0-53.0) % Plt Count (150-450) k/uL Neutrophils # (1.3-7.7) k/uL ABG pH (7.35-7.45) ABG pCO2 (35-45) mmHg ABG pO2 (83-108) mmHg ABG HCO3 (21-25) mmol/L ABG Total CO2 (19-24) mmol/L ABG O2 Saturation (94-97) % Sodium (137-145) mmol/L Glucose (74-99) mg/dL POC Glucose (mg/dL) 128 H 133 H 134 H (75-99) mg/dL Calcium (8.4-10.2) mg/dL Total Protein (6.3-8.2) g/dL Albumin (3.5-5.0) g/dL Crossmatch 03/16/20 03/16/20 03/16/20 Range/Units 02:03 02:58 04:05 RBC (4.30-5.90) m/uL Hgb (13.0-17.5) gm/dL Hct (39.0-53.0) % Plt Count (150-450) k/uL Neutrophils # (1.3-7.7) k/uL ABG pH (7.35-7.45) ABG pCO2 (35-45) mmHg ABG pO2 (83-108) mmHg ABG HCO3 (21-25) mmol/L ABG Total CO2 (19-24) mmol/L ABG O2 Saturation (94-97) % Sodium (137-145) mmol/L Glucose (74-99) mg/dL POC Glucose (mg/dL) 129 H 134 H 135 H (75-99) mg/dL Calcium (8.4-10.2) mg/dL Total Protein (6.3-8.2) g/dL Albumin (3.5-5.0) g/dL Crossmatch 03/16/20 03/16/20 03/16/20 Range/Units 04:10 04:10 05:10 RBC 3.87 L (4.30-5.90) m/uL Hgb 12.1 L (13.0-17.5) gm/dL Hct 35.3 L (39.0-53.0) % Plt Count 117 L (150-450) k/uL Neutrophils # (1.3-7.7) k/uL ABG pH (7.35-7.45) ABG pCO2 (35-45) mmHg ABG pO2 (83-108) mmHg ABG HCO3 (21-25) mmol/L ABG Total CO2 (19-24) mmol/L ABG O2 Saturation (94-97) % Sodium 136 L (137-145) mmol/L Glucose 122 H (74-99) mg/dL POC Glucose (mg/dL) 159 H (75-99) mg/dL Calcium 8.3 L (8.4-10.2) mg/dL Total Protein 5.3 L (6.3-8.2) g/dL Albumin 3.3 L (3.5-5.0) g/dL Crossmatch 03/16/20 03/16/20 03/16/20 Range/Units 06:08 06:52 08:35 RBC (4.30-5.90) m/uL Hgb (13.0-17.5) gm/dL Hct (39.0-53.0) % Plt Count (150-450) k/uL Neutrophils # (1.3-7.7) k/uL ABG pH (7.35-7.45) ABG pCO2 (35-45) mmHg ABG pO2 (83-108) mmHg ABG HCO3 (21-25) mmol/L ABG Total CO2 (19-24) mmol/L ABG O2 Saturation (94-97) % Sodium (137-145) mmol/L Glucose (74-99) mg/dL POC Glucose (mg/dL) 167 H 156 H 205 H (75-99) mg/dL Calcium (8.4-10.2) mg/dL Total Protein (6.3-8.2) g/dL Albumin (3.5-5.0) g/dL Crossmatch 03/16/20 03/16/20 03/16/20 Range/Units 10:26 10:57 11:45 RBC (4.30-5.90) m/uL Hgb (13.0-17.5) gm/dL Hct (39.0-53.0) % Plt Count (150-450) k/uL Neutrophils # (1.3-7.7) k/uL ABG pH (7.35-7.45) ABG pCO2 (35-45) mmHg ABG pO2 (83-108) mmHg ABG HCO3 (21-25) mmol/L ABG Total CO2 (19-24) mmol/L ABG O2 Saturation (94-97) % Sodium (137-145) mmol/L Glucose (74-99) mg/dL POC Glucose (mg/dL) 155 H 131 H 125 H (75-99) mg/dL Calcium (8.4-10.2) mg/dL Total Protein (6.3-8.2) g/dL Albumin (3.5-5.0) g/dL Crossmatch 03/16/20 Range/Units 13:03 RBC (4.30-5.90) m/uL Hgb (13.0-17.5) gm/dL Hct (39.0-53.0) % Plt Count (150-450) k/uL Neutrophils # (1.3-7.7) k/uL ABG pH (7.35-7.45) ABG pCO2 (35-45) mmHg ABG pO2 (83-108) mmHg ABG HCO3 (21-25) mmol/L ABG Total CO2 (19-24) mmol/L ABG O2 Saturation (94-97) % Sodium (137-145) mmol/L Glucose (74-99) mg/dL POC Glucose (mg/dL) 126 H (75-99) mg/dL Calcium (8.4-10.2) mg/dL Total Protein (6.3-8.2) g/dL Albumin (3.5-5.0) g/dL Crossmatch Assessment and Plan Assessment: Impression: Status post CABG, postoperative day #2. Postoperative atelectasis, expected. History of myocardial infarction and stent of RCA. Ischemic cardiomyopathy and chronic systolic heart failure with ejection fraction of 45%. Type 2 diabetes. Diabetic peripheral neuropathy. Tobacco dependence syndrome. Chronic back pain. Dyslipidemia. Benign essential hypertension. Recommendation: Continue present supportive care measures. Continue incentive spirometry. Continue pain control. Early ambulation. Discontinue unnecessary catheters. Continue to manage diabetes as per protocol. Counseled regarding smoking cessation. Continue statins, Plavix, beta blockers, and aspirin. Continue to monitor daily labs and x-rays. Continue GI and DVT prophylaxis. Discontinue mediastinal and pleural chest tubes weren't felt appropriate by surgery. We'll continue to follow Time with Patient: Less than 30
[2020-03-16 16:00] LABS: Glucose,Whole Blood 173 mg/dL (75-99)
[2020-03-16 17:07] LABS: Glucose,Whole Blood 158 mg/dL (75-99)
[2020-03-16] MEDS: lisinopriL 5 MG TAB PO SCH (17:27)
[2020-03-16 18:16] LABS: Glucose,Whole Blood 177 mg/dL (75-99)
[2020-03-16] MEDS: CLEVIDIPINE BUTYRATE 25 MG in EMPTY BAG 1 BAG IV SCH (18:41)
[2020-03-16 19:04] LABS: Glucose,Whole Blood 205 mg/dL (75-99)
[2020-03-16 19:49] LABS: Glucose,Whole Blood 205 mg/dL (75-99)
[2020-03-16] MEDS: SENNOSIDES-DOCUSATE SODIUM 1 EACH TAB PO SCH (21:07)
[2020-03-16] MEDS: METOPROLOL TARTRATE 25 MG TAB PO SCH (21:08)
[2020-03-16 21:16] LABS: Glucose,Whole Blood 175 mg/dL (75-99)
[2020-03-16 22:08] LABS: Glucose,Whole Blood 158 mg/dL (75-99)
[2020-03-16 23:17] LABS: Glucose,Whole Blood 146 mg/dL (75-99)
[2020-03-16] MEDS: INSULIN REGULAR 100 UNIT in SODIUM CHLORIDE 0.9% 100 ML IV SCH (23:26)
--- NOTE | 2020-03-16 23:26 | P.PN ---
Subjective Progress Note Date: 03/16/20 Patient is a pleasant 54-year-old white male was admitted coronary artery bypass graft after finding out. Severe cardiac symptoms disease. Is currently extubated sitting upright in chair feeling well. Denies any significant chest pain or shortness of breath. Denies any fever. Objective - Vital Signs Vital signs: Vital Signs Temp 98.3 F 03/16/20 20:00 Pulse 84 03/16/20 22:30 Resp 11 L 03/16/20 22:30 BP 116/62 03/16/20 22:30 Pulse Ox 93 L 03/16/20 22:30 Intake & Output 03/16/20 03/16/20 03/17/20 06:59 18:59 06:59 Intake Total 1504.250 3492.640 82.595 Output Total 962 288 47 Balance 388.461 5330.640 35.595 Weight 119.3 kg Intake: IV 1124.5 439.5 78 CO/CI (Normal Saline) 400 30 Lactated Ringers 1,000 ml 600 330 60 @ 20 mls/hr IV .Q24H [facility] Rx#:[id number] Nitroglycerin-D5w Pmx 50 16.5 1.5 mg In Dextrose/Water 1 250ml.bag @ 5 MCG/MIN 1.5 mls/hr IV .Q24H [facility] Rx#: [id number] Normal Saline Pressure 108 78 18 Bag Intake, IV Titration 67.793 51.140 4.595 Amount Insulin Regular 100 unit 17.793 51.140 4.595 In Sodium Chloride 0.9% 100 ml @ Per Protocol IV .Q0M [facility] Rx#:[id number] ceFAZolin 2 gm In Sodium 50 Chloride 0.9% 50 ml @ 100 mls/hr IVPB Q8HR [facility] Rx# :[id number] Oral 1600 Output: Chest Tube Drainage 462 50 Left Pleural/Mediastinal 462 50 Urine 500 238 47 Other: Voiding Method Indwelling Catheter Indwelling Catheter Indwelling Catheter ABP, PAP, CO, CI - Last Documented Arterial Blood Pressure 81/43 Pulmonary Artery Pressure 17/4 Cardiac Output 5.9 Cardiac Index 2.5 - Exam GENERAL: This is a -4 year-old in no apparent distress at the time of examination. Pleasant and cooperative. HEENT: Head is atraumatic, normocephalic. Pupils are equal, round, and reactive to light. Sclerae anicteric. Conjunctivae are clear. Mucus membranes of the mouth are moist. Neck is supple with right IJ catheter. Salicylate was sleeping. RESPIRATORY: Clear to auscultation. No wheezes, rales, or rhonchi. No use of a ccessory muscles. Patient maintaining oxygen saturation greater than 92%. No chest wall tenderness is noted on palpation or with deep breathing. CARDIOVASCULAR: Midline sternotomy scar with minimal draining Regular rate and rhythm. S1 and S2 noted. GASTROINTESTINAL: No distention noted. Abdomen soft and round. Normal active bowel sounds auscultated x 4 quadrants. No pain or tenderness noted upon palpation. INTEGUMENTARY: No cyanosis. No jaundice. No rashes noted. No cellulitis noted. EXTREMITIES: 2+ peripheral pulses. No evidence of peripheral edema. No calf tenderness noted. NEUROLOGIC: Cranial nerves II-XII intact. PSYCHIATRIC: Awake, alert, and oriented X 3. Appropriate affect. Intact judgement and insight. - Labs CBC & Chem 7: 03/16/20 04:10 03/16/20 04:10 Labs: Abnormal Lab Results - Last 24 Hours (Table) 03/08/20 03/16/20 03/16/20 Range/Units 14:01 00:03 01:01 RBC (4.30-5.90) m/uL Hgb (13.0-17.5) gm/dL Hct (39.0-53.0) % Plt Count (150-450) k/uL Sodium (137-145) mmol/L Glucose (74-99) mg/dL POC Glucose (mg/dL) 133 H 134 H (75-99) mg/dL Calcium (8.4-10.2) mg/dL Total Protein (6.3-8.2) g/dL Albumin (3.5-5.0) g/dL Crossmatch See Detail 03/16/20 03/16/20 03/16/20 Range/Units 02:03 02:58 04:05 RBC (4.30-5.90) m/uL Hgb (13.0-17.5) gm/dL Hct (39.0-53.0) % Plt Count (150-450) k/uL Sodium (137-145) mmol/L Glucose (74-99) mg/dL POC Glucose (mg/dL) 129 H 134 H 135 H (75-99) mg/dL Calcium (8.4-10.2) mg/dL Total Protein (6.3-8.2) g/dL Albumin (3.5-5.0) g/dL Crossmatch 03/16/20 03/16/20 03/16/20 Range/Units 04:10 04:10 05:10 RBC 3.87 L (4.30-5.90) m/uL Hgb 12.1 L (13.0-17.5) gm/dL Hct 35.3 L (39.0-53.0) % Plt Count 117 L (150-450) k/uL Sodium 136 L (137-145) mmol/L Glucose 122 H (74-99) mg/dL POC Glucose (mg/dL) 159 H (75-99) mg/dL Calcium 8.3 L (8.4-10.2) mg/dL Total Protein 5.3 L (6.3-8.2) g/dL Albumin 3.3 L (3.5-5.0) g/dL Crossmatch 03/16/20 03/16/20 03/16/20 Range/Units 06:08 06:52 08:35 RBC (4.30-5.90) m/uL Hgb (13.0-17.5) gm/dL Hct (39.0-53.0) % Plt Count (150-450) k/uL Sodium (137-145) mmol/L Glucose (74-99) mg/dL POC Glucose (mg/dL) 167 H 156 H 205 H (75-99) mg/dL Calcium (8.4-10.2) mg/dL Total Protein (6.3-8.2) g/dL Albumin (3.5-5.0) g/dL Crossmatch 03/16/20 03/16/20 03/16/20 Range/Units 10:26 10:57 11:45 RBC (4.30-5.90) m/uL Hgb (13.0-17.5) gm/dL Hct (39.0-53.0) % Plt Count (150-450) k/uL Sodium (137-145) mmol/L Glucose (74-99) mg/dL POC Glucose (mg/dL) 155 H 131 H 125 H (75-99) mg/dL Calcium (8.4-10.2) mg/dL Total Protein (6.3-8.2) g/dL Albumin (3.5-5.0) g/dL Crossmatch 03/16/20 03/16/20 03/16/20 Range/Units 13:03 15:58 17:05 RBC (4.30-5.90) m/uL Hgb (13.0-17.5) gm/dL Hct (39.0-53.0) % Plt Count (150-450) k/uL Sodium (137-145) mmol/L Glucose (74-99) mg/dL POC Glucose (mg/dL) 126 H 173 H 158 H (75-99) mg/dL Calcium (8.4-10.2) mg/dL Total Protein (6.3-8.2) g/dL Albumin (3.5-5.0) g/dL Crossmatch 03/16/20 03/16/20 03/16/20 Range/Units 18:14 19:02 19:48 RBC (4.30-5.90) m/uL Hgb (13.0-17.5) gm/dL Hct (39.0-53.0) % Plt Count (150-450) k/uL Sodium (137-145) mmol/L Glucose (74-99) mg/dL POC Glucose (mg/dL) 177 H 205 H 205 H (75-99) mg/dL Calcium (8.4-10.2) mg/dL Total Protein (6.3-8.2) g/dL Albumin (3.5-5.0) g/dL Crossmatch 03/16/20 03/16/20 Range/Units 21:14 22:06 RBC (4.30-5.90) m/uL Hgb (13.0-17.5) gm/dL Hct (39.0-53.0) % Plt Count (150-450) k/uL Sodium (137-145) mmol/L Glucose (74-99) mg/dL POC Glucose (mg/dL) 175 H 158 H (75-99) mg/dL Calcium (8.4-10.2) mg/dL Total Protein (6.3-8.2) g/dL Albumin (3.5-5.0) g/dL Crossmatch Assessment and Plan (1) Diabetes Current Visit: Yes Status: Acute Code(s): E11.9 - TYPE 2 DIABETES MELLITUS WITHOUT COMPLICATIONS SNOMED Code(s): 64487600 (2) Diabetes type 2 with atherosclerosis of arteries of extremities Current Visit: Yes Status: Acute Code(s): E11.51 - TYPE 2 DIABETES W DIABETIC PERIPHERAL ANGIOPATH W/O GANGRENE; I70.209 - UNSP ATHSCL TABLE M[place]AIN ARTERIES OF EXTREMITIES, UNSP EXTREMITY SNOMED Code(s): 15530500 (3) Acute coronary syndrome Current Visit: No Status: Acute Code(s): I24.9 - ACUTE ISCHEMIC HEART DISEASE, UNSPECIFIED SNOMED Code(s): 676372113 (4) NSTEMI (non-ST elevated myocardial infarction) Current Visit: No Status: Acute Code(s): I21.4 - NON-ST ELEVATION (NSTEMI) MYOCARDIAL INFARCTION SNOMED Code(s): 91310241 Plan: Plan is continue ICU support until patient cleared to go to stepdown unit. He currently still has chest T Melchor catheter central line.
[2020-03-17 00:01] LABS: Glucose,Whole Blood 144 mg/dL (75-99)
[2020-03-17 01:06] LABS: Glucose,Whole Blood 142 mg/dL (75-99)
[2020-03-17] MEDS: KETOROLAC 30 MG/ML 1 ML VIAL IVP SCH ×4 (01:16→18:33)
[2020-03-17] MEDS: HEPARIN SODIUM,PORCINE 5,000 UNIT/ML 1 ML VIAL SQ SCH ×3 (01:16→17:12)
[2020-03-17] MEDS: HYDROcodone/APAP 7.5-325MG 1 EACH TAB PO PRN (01:49)
[2020-03-17 01:54] LABS: Glucose,Whole Blood 134 mg/dL (75-99)
[2020-03-17 03:20] LABS: Glucose,Whole Blood 130 mg/dL (75-99)
[2020-03-17 04:49] LABS: Glucose,Whole Blood 105 mg/dL (75-99)
[2020-03-17 05:19] LABS: Basophils % (A) 0 %; Eosinophils # (A) 0.2 k/uL (0-0.7); Eosinophils % (A) 2 %; HCT 35.1 % (39.0-53.0); HGB 11.6 gm/dL (13.0-17.5); Lymphocytes # (A) 1.4 k/uL (1.0-4.8); Lymphocytes % (A) 16 %; MCH 30.2 pg (25.0-35.0); MCV 91.6 fL (80.0-100.0); Mean Platelet Volume 9.8; Monocytes # (A) 0.4 k/uL (0-1.0); Monocytes % (A) 5 %; Neutrophils # (A) 7.1 k/uL (1.3-7.7); Neutrophils % (A) 77 %; Platelet Count 123 k/uL (150-450); RBC 3.83 m/uL (4.30-5.90); RDW 13.2 % (11.5-15.5); WBC 9.2 k/uL (3.8-10.6)
[2020-03-17 05:21] LABS: Ionized Calcium 5.1 mg/dL (4.5-5.3)
[2020-03-17 05:28] LABS: ALT 10 U/L (4-49); AST 20 U/L (17-59); African American GFR (CKD) >90 (>60 ml/min/1.73 sqM); Albumin 3.1 g/dL (3.5-5.0); Alkaline Phosphatase 72 U/L (38-126); Anion Gap 4 mmol/L; Blood Urea Nitrogen 14 mg/dL (9-20); Calcium 8.5 mg/dL (8.4-10.2); Carbon Dioxide 25 mmol/L (22-30); Chloride 109 mmol/L (98-107); Glucose 98 mg/dL (74-99); Non-African American GFR(CKD) 89 (>60 ml/min/1.73 sqM); Potassium 3.7 mmol/L (3.5-5.1); Sodium 138 mmol/L (137-145); Total Bilirubin 0.8 mg/dL (0.2-1.3); Total Protein 5.4 g/dL (6.3-8.2)
[2020-03-17] MEDS: LACTATED RINGERS 1,000 ML IV SCH (06:37)
[2020-03-17] MEDS: PANTOPRAZOLE 40 MG TABLET PO SCH (06:37)
[2020-03-17 06:43] LABS: Glucose,Whole Blood 119 mg/dL (75-99)
[2020-03-17] MEDS ORDERED: POTASSIUM CHLORIDE ER 20 MEQ TAB.ER PO SCH (07:00)
[2020-03-17 07:07] LABS: Glucose,Whole Blood 130 mg/dL (75-99)
[2020-03-17] MEDS: IPRATROPIUM-ALBUTEROL 3 ML NEB INHALATION SCH ×4 (07:32→19:35)
[2020-03-17] MEDS ORDERED: FUROSEMIDE 10 MG/ML 2 ML VIAL IV ONE (08:09)
[2020-03-17] MEDS ORDERED: HYDROcodone/APAP 7.5-325MG 1 EACH TAB PO PRN (08:13)
--- NOTE | 2020-03-17 08:17 | XR ---
EXAMINATION TYPE: XR chest 1V portable DATE OF EXAM: 03/17/2020 COMPARISON: Prior chest x-ray dated 06/25/2020 HISTORY: Postop cardiac surgery TECHNIQUE: Single frontal view of the chest is obtained. FINDINGS: Right jugular central venous catheter has been removed, left-sided chest tube remains in p lace. There is no sizable pneumothorax. Lung volumes are low and the patient is rotated. Patient is p ost median sternotomy. Cardiac mediastinal silhouette is stable. There are overlying artifacts. Patch y basilar density again noted. IMPRESSION: Interval catheter removal. Probable basilar atelectasis.
[2020-03-17] MEDS: INSULIN DETEMIR (LEVEMIR) 100 UNIT/ML SYR SQ SCH (08:38)
[2020-03-17] MEDS: CLOPIDOGREL 75 MG TAB PO SCH (08:39)
[2020-03-17] MEDS: ATORVASTATIN 40 MG TAB PO SCH (08:39)
[2020-03-17] MEDS: ASPIRIN 325 MG TAB PO SCH (08:39)
--- NOTE | 2020-03-17 09:43 | P.PN ---
Subjective Progress Note Date: 03/17/20 Principal diagnosis: Coronary artery disease. Past medical history significant for myocardial infarction, stent to the RCA, hypertension, hyperlipidemia, ischemic cardiomyopathy, chronic diastolic heart failure with EF 45%, uncontrolled type 2 diabetes mellitus with hyperglycemia and recent hemoglobin A1c 8.9% and peripheral neuropathy, current tobacco dependence and chronic back pain on chronic narcotics with a pain contract from a pain specialist. POD #2 off-pump coronary artery bypass grafting 2 with sequential left internal mammary artery to the second diagonal and left anterior descending coronary artery. The patient was seen in follow-up today 03/17/2020 at his bedside in the intensive care unit. Currently he is sitting up to the bedside chair, he is awake, alert and oriented 3 and is in no acute distress. He remains hemodynamically stable and is currently on no inotropic or pressor support. Right IJ cordis remains in place with continuous CVP monitoring, current CVP pressure is 14 mmHg. Oxygen saturation are 97% on room air and he is achieving 1500 mL on his incentive spirometry. Left pleural chest tube remains in place to low continuous wall suction -20 cm H2O. No air leak is present. Draining thin serosanguineous drainage with 70 mL output in the last 8 hours, 120 mL output in the last 24 hours. Bedside telemetry showing normal sinus rhythm heart rate 82. Denies any complaints of shortness of breath or pain at this time. Objective - Vital Signs Vital signs: Vital Signs Temp 98.4 F 03/17/20 04:00 Pulse 74 03/17/20 07:42 Resp 14 03/17/20 07:00 BP 115/65 03/17/20 07:00 Pulse Ox 96 03/17/20 07:00 Intake & Output 03/16/20 03/17/20 03/17/20 18:59 06:59 18:59 Intake Total 2090.640 306.789 65.836 Output Total 288 299 Balance 1802.640 7.789 65.836 Weight 124.8 kg Intake: IV 439.5 286 26 CO/CI (Normal Saline) 30 Lactated Ringers 1,000 ml 330 220 20 @ 20 mls/hr IV .Q24H [facility] Rx#:[id number] Nitroglycerin-D5w Pmx 50 1.5 mg In Dextrose/Water 1 250ml.bag @ 5 MCG/MIN 1.5 mls/hr IV .Q24H [facility] Rx#: [id number] Normal Saline Pressure 78 66 6 Bag Intake, IV Titration 51.140 20.789 39.836 Amount Insulin Regular 100 unit 51.140 20.789 39.836 In Sodium Chloride 0.9% 100 ml @ Per Protocol IV .Q0M [facility] Rx#:[id number] Oral 1600 Output: Chest Tube Drainage 50 70 Left Pleural Chest Tube 70 Left Pleural/Mediastinal 50 Urine 238 229 Other: Voiding Method Indwelling Catheter Indwelling Catheter ABP, PAP, CO, CI - Last Documented Arterial Blood Pressure 81/43 Pulmonary Artery Pressure 17/4 Cardiac Output 5.9 Cardiac Index 2.5 - Constitutional General appearance: Present: cooperative, no acute distress, obese - EENT Eyes: Present: PERRLA, normal appearance. Absent: scleral icterus ENT: Present: hearing grossly normal - Neck Details: Neck is supple, no JVD, right IJ Cordis in place with continuous CVP monitoring 14 mmHg. - Respiratory Details: Lung sounds diminished to his bilateral bases with few scattered crackles. No wheezes or rhonchi. Respirations are symmetrical and nonlabored. Oxygen saturation are 97% on room air. Achieving 1500 mL on his incentive spirometry. Left pleural chest tube remains in place to low continuous wall suction -20 cm H2O. No air leak is present. Draining thin serosanguineous drainage with 70 mL output in the last 8 hours and 120 mL output in the last 24 hours. - Cardiovascular Details: Regular rhythm and rate. S1 and S2 present, negative for S3, gallop or murmur. Sternum is stable. Bedside telemetry showing normal sinus rhythm heart rate 82. Knee-high PASCALE hose and sequential compression devices in place to his bilateral lower extremities. Heart hugger is in place and he is demonstrating appropriate use. +1 edema to his bilateral lower extremities. Right IJ Cordis in place with continuous CVP monitoring, current CVP pressure 14 mmHg. - Gastrointestinal Gastrointestinal Comment(s): Abdomen is soft, nontender and nondistended. Active bowel sounds present in all 4 abdominal quadrants. No guarding or rigidity. No organomegaly appreciated. Tolerating oral intake. - Genitourinary Genitourinary Comment(s): Voiding clear yellow urine. - Integumentary Integumentary Comment(s): Skin is warm and dry. No clubbing or cyanosis is present. Midline sternal incision is clean, dry and approximated. No drainage or redness is present. - Neurologic Neurologic: Present: CNII-XII intact - Musculoskeletal Musculoskeletal: Present: gait normal, generalized weakness, strength equal bilaterally - Psychiatric Psychiatric: Present: A&O x's 3, appropriate affect, intact judgment & insight - Allied health notes Allied health notes reviewed: nursing - Labs CBC & Chem 7: 03/17/20 05:00 03/17/20 05:00 Labs: Abnormal Lab Results - Last 24 Hours (Table) 03/16/20 03/16/20 03/16/20 Range/Units 10:26 10:57 11:45 RBC (4.30-5.90) m/uL Hgb (13.0-17.5) gm/dL Hct (39.0-53.0) % Plt Count (150-450) k/uL Chloride (98-107) mmol/L POC Glucose (mg/dL) 155 H 131 H 125 H (75-99) mg/dL Total Protein (6.3-8.2) g/dL Albumin (3.5-5.0) g/dL 03/16/20 03/16/20 03/16/20 Range/Units 13:03 15:58 17:05 RBC (4.30-5.90) m/uL Hgb (13.0-17.5) gm/dL Hct (39.0-53.0) % Plt Count (150-450) k/uL Chloride (98-107) mmol/L POC Glucose (mg/dL) 126 H 173 H 158 H (75-99) mg/dL Total Protein (6.3-8.2) g/dL Albumin (3.5-5.0) g/dL 03/16/20 03/16/20 03/16/20 Range/Units 18:14 19:02 19:48 RBC (4.30-5.90) m/uL Hgb (13.0-17.5) gm/dL Hct (39.0-53.0) % Plt Count (150-450) k/uL Chloride (98-107) mmol/L POC Glucose (mg/dL) 177 H 205 H 205 H (75-99) mg/dL Total Protein (6.3-8.2) g/dL Albumin (3.5-5.0) g/dL 03/16/20 03/16/20 03/16/20 Range/Units 21:14 22:06 23:15 RBC (4.30-5.90) m/uL Hgb (13.0-17.5) gm/dL Hct (39.0-53.0) % Plt Count (150-450) k/uL Chloride (98-107) mmol/L POC Glucose (mg/dL) 175 H 158 H 146 H (75-99) mg/dL Total Protein (6.3-8.2) g/dL Albumin (3.5-5.0) g/dL 03/16/20 03/17/20 03/17/20 Range/Units 23:59 01:04 01:53 RBC (4.30-5.90) m/uL Hgb (13.0-17.5) gm/dL Hct (39.0-53.0) % Plt Count (150-450) k/uL Chloride (98-107) mmol/L POC Glucose (mg/dL) 144 H 142 H 134 H (75-99) mg/dL Total Protein (6.3-8.2) g/dL Albumin (3.5-5.0) g/dL 03/17/20 03/17/20 03/17/20 Range/Units 03:18 04:47 05:00 RBC 3.83 L (4.30-5.90) m/uL Hgb 11.6 L (13.0-17.5) gm/dL Hct 35.1 L (39.0-53.0) % Plt Count 123 L (150-450) k/uL Chloride (98-107) mmol/L POC Glucose (mg/dL) 130 H 105 H (75-99) mg/dL Total Protein (6.3-8.2) g/dL Albumin (3.5-5.0) g/dL 03/17/20 03/17/20 03/17/20 Range/Units 05:00 06:35 07:05 RBC (4.30-5.90) m/uL Hgb (13.0-17.5) gm/dL Hct (39.0-53.0) % Plt Count (150-450) k/uL Chloride 109 H (98-107) mmol/L POC Glucose (mg/dL) 119 H 130 H (75-99) mg/dL Total Protein 5.4 L (6.3-8.2) g/dL Albumin 3.1 L (3.5-5.0) g/dL - Imaging and Cardiology Chest x-ray: report reviewed, image reviewed Assessment and Plan Assessment: 1. Coronary artery disease, status post 2 vessel CABG 2. History of myocardial infarction, stent placement to the RCA 3. Hypertension 4. Hyperlipidemia 5. Ischemic cardiomyopathy, chronic diastolic heart failure with EF 45% 6. Uncontrolled type 2 diabetes mellitus with hyperglycemia and recent hemoglobin A1c 8.9%, peripheral neuropathy 7. Current tobacco dependence 8. Chronic back pain on chronic narcotics with pain contract for pain specialist Plan: 1. Continue aspirin, statin, Plavix, and beta juan diego. Will increase beta juan diego as tolerated. 2. Encourage incentive spirometry 10 times every hour while awake. B ronchodilators per pulmonology. 3. Increase activity, ambulate as tolerated. PT/OT/cardiac rehab following. 4. Will monitor daily labs and chest x-rays. Electrolytes replacement per protocol. 5. Insulin management per primary care service. 6. Pain controlled current medication regimen. 7. GI/DVT prophylaxis. 8. Discontinue right IJ Cordis to continue CVP monitoring. 9. Left pleural chest tube discontinued without incident. 10. Lasix 20 mg IV 1 now. 11. More recommendations to follow based on patient's clinical course. Time with Patient: Greater than 30
--- NOTE | 2020-03-17 09:50 | PN ---
PROGRESS NOTE Mr. Suarez is a 54-year-old male, status post coronary artery bypass grafting with BRANDT to the LAD and diagonal branch. He is doing well this morning. His breathing is stable. He continued to be in sinus mechanism. Hemodynamically stable. He is on no pressors. He has reasonable urine output and no significant drainage from the chest tube. He continues to be at this time on aspirin once a day, Lipitor 40 mg daily, Plavix 75 mg daily, lisinopril 5 mg daily, metoprolol tartrate 25 mg twice a day. PHYSICAL EXAMINATION: Blood pressure: 115/60 with a heart rate in 70s. LUNGS: With a few crackles at the bases. HEART: Regular rate and rhythm, S1, S2. No S3. No rub. ABDOMEN: Soft, nontender. EXTREMITIES: No edema. LAB DATA: Revealed BUN and creatinine 14 and 0.96, potassium 3.7, hemoglobin of 11.6. IMPRESSION: 1. Status post coronary artery bypass grafting, stable. 2. Status post prior stenting of the RCA. 3. History of hypertension. 4. History of hyperlipidemia. 5. Prior history of smoking. RECOMMENDATION: Will continue incentive spirometry, increase his level of activity and ambulate. Hemodynamically stable. Depending on the trend of his blood pressure, further recommendation will be made. MMODL / IJN: [id number] /
[2020-03-17] MEDS: METOPROLOL TARTRATE 25 MG TAB PO SCH ×2 (11:20→21:48)
[2020-03-17 11:46] LABS: Glucose,Whole Blood 206 mg/dL (75-99)
[2020-03-17 11:56] VITALS: BMI 37.3
[2020-03-17] MEDS: lisinopriL 5 MG TAB PO SCH (12:13)
[2020-03-17] MEDS: INSULIN ASPART (NovoLOG) 100 UNIT/ML VIAL SQ SCH ×3 (12:14→21:49)
--- NOTE | 2020-03-17 14:13 | P.PN ---
Subjective Progress Note Date: 03/17/20 Principal diagnosis: Status post CABG 2. Postoperative day #2 istory of present illness: This is a 54-year-old white male patient of Dr. Quick with history of coronary artery disease with previous intervention and stenting of the RCA, previous myocardial infarction, hypertension, hyperlipidemia, ischemic cardiomyopathy with an EF of 45%, uncontrolled type 2 diabetes mellitus with A1c level of 10.3%, chronic smoker, peripheral vascular disease. Patient was recently was experiencing mild anginal symptoms, and increased lower extremity edema. He underwent heart catheterization on 03/08/2020, showing patent RCA stent, mid LAD 99% stenosis at the bifurcation of the diagonal, patient was referred to cardiothoracic surgery for surgical revascularization. Today on 03/15/2020 patient underwent off-pump CABG 2 with sequential BRANDT to the second diagonal and LAD. worsening the patient in the postoperative period in the intensive care unit. Currently sedated, on mechanical ventilator, on assist-control mode with a rate of 12, tidal volume 600, FiO2 of 50% and PEEP of 10. Postoperative blood gases showed pO2 of 185, pCO2 of 46, and pH of 7.37, on FiO2 of 50%. FiO2 was dropped down to 40%. patient is hemodynamically stable, on lactated Ringer's at a rate of 50, insulin drip is at 5 units per hour, nitroglycerin drip is at 5 mics per minute, Diprivan drip has been turned off. PA pressures 28/15, cardiac output is 4.7, cardiac index is 2.0. One mediastinal and left pleural chest tube a total of 140 mL of sanguinous output, hemodynamically patient is stable, in sinus mechanism with a controlled rate. postoperative chest x-ray shows ET tube, NG tube Galena-Shahriar catheter in appropriate positions, lungs are clear no pleural effusion. Patient was reevaluated today on 03/16/20, remains in the ICU, patient is postoperative day #1. Patient is sitting in her recliner in the ICU, denies any specific complaints, denies any pain and denies any shortness of breath, he is hemodynamically stable, on 2 L nasal cannula. He is on insulin drip at 7 units per hour. He is in sinus rhythm rate 75/m, and overall the patient is doing great. Chest x-ray showed mostly postoperative changes, cardiomegaly, low lung volumes, bibasilar atelectasis. CBC is relatively normal. Basic metabolic profile is normal. Patient was reevaluated today on 03/17/20, patient remains in the ICU, on room air, O2 saturations 95%, patient is hemodynamically stable. Patient is already ambulating awake, and in no distress. Patient is achieving 1500 mL on his incentive spirometer. Left pleural chest tube remains in place, 120 mL drained in the last 24 hours. Bedside telemetry showing normal sinus rhythm, rate is 80. Overall the patient is doing great. Objective - Vital Signs Vital signs: Vital Signs Temp 98.5 F 03/17/20 12:00 Pulse 85 03/17/20 12:30 Resp 13 03/17/20 12:30 BP 130/55 03/17/20 12:30 Pulse Ox 96 03/17/20 12:30 Intake & Output 03/16/20 03/17/20 03/17/20 18:59 06:59 18:59 Intake Total 2090.640 306.789 611.836 Output Total 288 299 0 Balance 1802.640 7.789 611.836 Weight 124.8 kg 124.8 kg Intake: IV 439.5 286 72 CO/CI (Normal Saline) 30 Lactated Ringers 1,000 ml 330 220 60 @ 20 mls/hr IV .Q24H [facility] Rx#:[id number] Nitroglycerin-D5w Pmx 50 1.5 mg In Dextrose/Water 1 250ml.bag @ 5 MCG/MIN 1.5 mls/hr IV .Q24H [facility] Rx#: [id number] Normal Saline Pressure 78 66 12 Bag Intake, IV Titration 51.140 20.789 39.836 Amount Insulin Regular 100 unit 51.140 20.789 39.836 In Sodium Chloride 0.9% 100 ml @ Per Protocol IV .Q0M [facility] Rx#:[id number] Oral 1600 500 Output: Chest Tube Drainage 50 70 Left Pleural Chest Tube 70 Left Pleural/Mediastinal 50 Urine 238 229 0 Other: Voiding Method Indwelling Catheter Indwelling Catheter ABP, PAP, CO, CI - Last Documented Arterial Blood Pressure 81/43 Pulmonary Artery Pressure 17/4 Cardiac Output 5.9 Cardiac Index 2.5 - Exam Physical Exam: Revealed 54-year-old white male in no distress. On room air. Head:, Atraumatic, normocephalic. HEENT:[Neck is supple.] [No neck masses.] [No thyromegaly.] [No JVD.] Chest: [Clear throughout, no crackles, no rhonchi, no wheezes.] Chest tubes as noted earlier. Cardiac Exam: [Normal S1 and S2, no S3 gallop, no murmur.]. Abdomen: [Soft, nontender, no megaly, no rebound, no guarding, normal bowel sounds.] Extremities: [No clubbing, no edema, no cyanosis.] Neurological Exam: [No focal neurologic deficit.] Alert and oriented 3. Psychiatric: Normal mood affect and normal mental status examination. Skin: No rashes.Skin is warm and dry with evidence of good perfusion. Anterior chest incision well approximated and covered with dry intact dressing. - Labs CBC & Chem 7: 03/17/20 05:00 03/17/20 05:00 Labs: Abnormal Lab Results - Last 24 Hours (Table) 03/16/20 03/16/20 03/16/20 Range/Units 15:58 17:05 18:14 RBC (4.30-5.90) m/uL Hgb (13.0-17.5) gm/dL Hct (39.0-53.0) % Plt Count (150-450) k/uL Chloride (98-107) mmol/L POC Glucose (mg/dL) 173 H 158 H 177 H (75-99) mg/dL Total Protein (6.3-8.2) g/dL Albumin (3.5-5.0) g/dL 03/16/20 03/16/20 03/16/20 Range/Units 19:02 19:48 21:14 RBC (4.30-5.90) m/uL Hgb (13.0-17.5) gm/dL Hct (39.0-53.0) % Plt Count (150-450) k/uL Chloride (98-107) mmol/L POC Glucose (mg/dL) 205 H 205 H 175 H (75-99) mg/dL Total Protein (6.3-8.2) g/dL Albumin (3.5-5.0) g/dL 03/16/20 03/16/20 03/16/20 Range/Units 22:06 23:15 23:59 RBC (4.30-5.90) m/uL Hgb (13.0-17.5) gm/dL Hct (39.0-53.0) % Plt Count (150-450) k/uL Chloride (98-107) mmol/L POC Glucose (mg/dL) 158 H 146 H 144 H (75-99) mg/dL Total Protein (6.3-8.2) g/dL Albumin (3.5-5.0) g/dL 03/17/20 03/17/20 03/17/20 Range/Units 01:04 01:53 03:18 RBC (4.30-5.90) m/uL Hgb (13.0-17.5) gm/dL Hct (39.0-53.0) % Plt Count (150-450) k/uL Chloride (98-107) mmol/L POC Glucose (mg/dL) 142 H 134 H 130 H (75-99) mg/dL Total Protein (6.3-8.2) g/dL Albumin (3.5-5.0) g/dL 03/17/20 03/17/20 03/17/20 Range/Units 04:47 05:00 05:00 RBC 3.83 L (4.30-5.90) m/uL Hgb 11.6 L (13.0-17.5) gm/dL Hct 35.1 L (39.0-53.0) % Plt Count 123 L (150-450) k/uL Chloride 109 H (98-107) mmol/L POC Glucose (mg/dL) 105 H (75-99) mg/dL Total Protein 5.4 L (6.3-8.2) g/dL Albumin 3.1 L (3.5-5.0) g/dL 03/17/20 03/17/20 03/17/20 Range/Units 06:35 07:05 11:44 RBC (4.30-5.90) m/uL Hgb (13.0-17.5) gm/dL Hct (39.0-53.0) % Plt Count (150-450) k/uL Chloride (98-107) mmol/L POC Glucose (mg/dL) 119 H 130 H 206 H (75-99) mg/dL Total Protein (6.3-8.2) g/dL Albumin (3.5-5.0) g/dL Assessment and Plan Assessment: Impression: Status post CABG, postoperative day #2 Postoperative atelectasis, expected. History of myocardial infarction and stent of RCA. Ischemic cardiomyopathy and chronic systolic heart failure with ejection fraction of 45%. Type 2 diabetes. Diabetic peripheral neuropathy. Tobacco dependence syndrome. Chronic back pain. Dyslipidemia. Benign essential hypertension. Recommendation: Continue present supportive care measures. Continue incentive spirometry. Continue pain control. Continue ambulation. Counseled regarding smoking cessation. Continue statins, Plavix, beta blockers, and aspirin. Continue to monitor daily labs and x-rays. Continue GI and DVT prophylaxis. We'll continue to follow Time with Patient: Less than 30
[2020-03-17 16:53] LABS: Glucose,Whole Blood 155 mg/dL (75-99)
[2020-03-17 20:45] LABS: Glucose,Whole Blood 170 mg/dL (75-99)
[2020-03-17] MEDS: HYDROcodone/APAP 7.5-325MG 1 EACH TAB PO SCH ×2 (21:11→21:51)
[2020-03-17] MEDS: SENNOSIDES-DOCUSATE SODIUM 1 EACH TAB PO SCH (21:49)
[2020-03-18] MEDS: KETOROLAC 30 MG/ML 1 ML VIAL IVP SCH ×3 (03:02→12:28)
[2020-03-18] MEDS: HEPARIN SODIUM,PORCINE 5,000 UNIT/ML 1 ML VIAL SQ SCH ×2 (03:02→09:02)
[2020-03-18 05:38] LABS: Basophils % (A) 0 %; Eosinophils # (A) 0.2 k/uL (0-0.7); Eosinophils % (A) 2 %; HCT 34.6 % (39.0-53.0); HGB 11.9 gm/dL (13.0-17.5); Lymphocytes # (A) 1.6 k/uL (1.0-4.8); Lymphocytes % (A) 20 %; MCH 31.4 pg (25.0-35.0); MCHC 34.2 g/dL (31.0-37.0); MCV 91.8 fL (80.0-100.0); Mean Platelet Volume 9.7; Monocytes # (A) 0.3 k/uL (0-1.0); Monocytes % (A) 4 %; Neutrophils # (A) 5.8 k/uL (1.3-7.7); Neutrophils % (A) 73 %; Platelet Count 118 k/uL (150-450); RBC 3.77 m/uL (4.30-5.90); RDW 13.3 % (11.5-15.5)
[2020-03-18 05:49] LABS: African American GFR (CKD) >90 (>60 ml/min/1.73 sqM); Anion Gap 3 mmol/L; Blood Urea Nitrogen 14 mg/dL (9-20); Calcium 8.4 mg/dL (8.4-10.2); Carbon Dioxide 24 mmol/L (22-30); Chloride 108 mmol/L (98-107); Glucose 172 mg/dL (74-99); Non-African American GFR(CKD) >90 (>60 ml/min/1.73 sqM); Sodium 135 mmol/L (137-145)
[2020-03-18] MEDS ORDERED: FUROSEMIDE 10 MG/ML 4 ML VIAL IV STA (07:18)
[2020-03-18] MEDS ORDERED: metFORMIN 500 MG TAB PO SCH (07:30)
[2020-03-18 07:47] LABS: Glucose,Whole Blood 203 mg/dL (75-99)
[2020-03-18] MEDS: HYDROcodone/APAP 7.5-325MG 1 EACH TAB PO SCH ×2 (07:47→12:27)
--- NOTE | 2020-03-18 08:14 | XR ---
EXAMINATION TYPE: XR chest 2V DATE OF EXAM: 03/18/2020 COMPARISON: 03/17/2020 HISTORY: 54-year-old male postoperative CABG TECHNIQUE: Frontal and lateral views FINDINGS: Median sternotomy wires are present with post-CABG clips in the mediastinum. Heart borderline in size . The mild strandy atelectasis in the lower lungs. Interval removal of the left-sided chest tube. No appreciable pneumothorax. Small effusions are noted on the lateral view. IMPRESSION: Residual small pleural effusions. No acute process otherwise seen.
[2020-03-18] MEDS: IPRATROPIUM-ALBUTEROL 3 ML NEB INHALATION SCH ×2 (08:40→12:45)
--- NOTE | 2020-03-18 08:50 | P.PN ---
Subjective Progress Note Date: 03/18/20 Principal diagnosis: Coronary artery disease. Previous medical history of myocardial infarction, stent to the RCA, hypertension, hyperlipidemia, ischemic cardiomyopathy, chronic systolic heart failure with EF 45%, uncontrolled type 2 diabetes mellitus with hyperglycemia and recent hemoglobin A1c 8.9% and peripheral neuropathy, current tobacco dependence and chronic back pain on chronic narcotics with a pain contract from a pain specialist. POD #3 off-pump coronary artery bypass grafting 2 with sequential left internal mammary artery to the second diagonal and left anterior descending coronary artery. The patient's currently sitting up in a recliner in the intensive care unit in no acute distress. He states pain is mostly controlled with current medication regimen, denies shortness of breath. Remains in normal sinus rhythm and hemodynamically stable. He has been ambulatory in the hallway without difficulty. Anticipates going home today. No new concerns. Objective - Vital Signs Vital signs: Vital Signs Temp 97.2 F L 03/18/20 00:00 Pulse 75 03/18/20 07:00 Resp 20 03/18/20 07:00 BP 137/83 03/18/20 06:00 Pulse Ox 96 03/18/20 07:00 Intake & Output 03/17/20 03/18/20 03/18/20 18:59 06:59 18:59 Intake Total 1111.836 Output Total 100 550 Balance 1011.836 -550 Weight 124.8 kg 126.1 kg Intake: IV 72 Lactated Ringers 1,000 ml 60 @ 20 mls/hr IV .Q24H [facility] Rx#:[id number] Normal Saline Pressure 12 Bag Intake, IV Titration 39.836 Amount Insulin Regular 100 unit 39.836 In Sodium Chloride 0.9% 100 ml @ Per Protocol IV .Q0M [facility] Rx#:[id number] Oral 1000 Output: Urine 100 550 Other: Voiding Method Indwelling Catheter ABP, PAP, CO, CI - Last Documented Arterial Blood Pressure 81/43 Pulmonary Artery Pressure 17/4 Cardiac Output 5.9 Cardiac Index 2.5 - Constitutional General appearance: Present: cooperative, no acute distress - Respiratory Details: Lungs sounds diminished bilaterally. Respirations even, nonlabored. Currently on room air with oxygen saturation 95%. Able to achieve 1500 mL and since spirometry. Strong cough. - Cardiovascular Details: S1, S2 present. Regular rate and rhythm, sinus rhythm on telemetry. Sternum stable. Palpable peripheral pulses bilaterally. Bilateral lower extremities trace edema present. No calf pain or tenderness noted. Heart hugger in place with patient demonstrating appropriate use. Antiembolism stockings, SCDs present. - Gastrointestinal Gastrointestinal Comment(s): Abdomen soft, nontender, nondistended. Active bowel sounds present 4 quadrants. Tolerating diet. Positive flatus, negative bowel movement. - Genitourinary Genitourinary Comment(s): Continues to void clear, yellow urine - Integumentary Integumentary Comment(s): Skin is warm and dry with evidence of good perfusion. Anterior chest incision well approximated and covered with dry intact dressing. - Neurologic Neurologic: Present: CNII-XII intact - Musculoskeletal Musculoskeletal: Present: gait normal, strength equal bilaterally - Psychiatric Psychiatric: Present: A&O x's 3, appropriate affect, intact judgment & insight - Allied health notes Allied health notes reviewed: nursing - Labs CBC & Chem 7: 03/18/20 05:12 03/18/20 05:12 Labs: Abnormal Lab Results - Last 24 Hours (Table) 03/17/20 03/17/20 03/17/20 Range/Units 11:44 16:52 20:44 RBC (4.30-5.90) m/uL Hgb (13.0-17.5) gm/dL Hct (39.0-53.0) % Plt Count (150-450) k/uL Sodium (137-145) mmol/L Chloride (98-107) mmol/L Glucose (74-99) mg/dL POC Glucose (mg/dL) 206 H 155 H 170 H (75-99) mg/dL 03/18/20 03/18/20 03/18/20 Range/Units 05:12 05:12 07:45 RBC 3.77 L (4.30-5.90) m/uL Hgb 11.9 L (13.0-17.5) gm/dL Hct 34.6 L (39.0-53.0) % Plt Count 118 L (150-450) k/uL Sodium 135 L (137-145) mmol/L Chloride 108 H (98-107) mmol/L Glucose 172 H (74-99) mg/dL POC Glucose (mg/dL) 203 H (75-99) mg/dL - Imaging and Cardiology Chest x-ray: report reviewed, image reviewed Assessment and Plan Assessment: 1. Coronary artery disease, status post 2 vessel CABG 2. History of myocardial infarction, stent the RCA 3. Hypertension 4. Hyperlipidemia 5. Ischemic cardiomyopathy, chronic heart failure with EF 45% 6. Uncontrolled type 2 diabetes mellitus with hyperglycemia and recent hemoglobin A1c 8.9%, peripheral neuropathy 7. Current tobacco dependence 8. Chronic back pain on chronic narcotics with pain contract for pain specialist Plan: 1. Continue aspirin, statin, Plavix, beta juan diego therapy. Will increase beta juan diego therapy as tolerated. 2. Encourage incentive spirometry 10 times every hour while awake. Bronchodilators per pulmonology 3. Increase activity, ambulate as tolerated. PT/OT/cardiac rehab following 4. Will monitor daily labs and x-rays. Electrolytes replacement per protocol 5. Insulin management per primary care service. Patient's home dose of metformin added 6. Pain controlled current medication regimen. 7. GI/DVT prophylaxis 8. Will discharge to home with home care today Time with Patient: Greater than 30
[2020-03-18] MEDS: INSULIN DETEMIR (LEVEMIR) 100 UNIT/ML SYR SQ SCH (08:55)
[2020-03-18] MEDS: ATORVASTATIN 40 MG TAB PO SCH (08:59)
[2020-03-18] MEDS: INSULIN ASPART (NovoLOG) 100 UNIT/ML VIAL SQ SCH ×2 (08:59→12:29)
[2020-03-18] MEDS: ASPIRIN 325 MG TAB PO SCH (09:00)
[2020-03-18] MEDS: METOPROLOL TARTRATE 25 MG TAB PO SCH (09:00)
[2020-03-18] MEDS: CLOPIDOGREL 75 MG TAB PO SCH (09:00)
[2020-03-18] MEDS: PANTOPRAZOLE 40 MG TABLET PO SCH (09:01)
[2020-03-18 09:57] VITALS: TEMP 97.6
--- NOTE | 2020-03-18 10:31 | PN ---
PROGRESS NOTE Mr. Suarez is a 54-year-old male with history of coronary artery disease, status post coronary artery bypass grafting, history of diabetes, hypertension, hyperlipidemia. He is doing well this morning, staying up in the chair in sinus mechanism. He denies any chest pain. He denies any dizziness, palpitation. He denies any nausea. Hemodynamically, he is stable. He has been ambulating without much difficulty. He continues to be on aspirin once a day, Lipitor 40 mg daily, lisinopril 5 mg daily, metformin 1 g twice a day, metoprolol tartrate 25 mg twice a day. PHYSICAL EXAMINATION: Blood pressure 137/80 with a heart rate in the 70s. LUNGS: Clear. HEART: Regular rate and rhythm, S1, S2. No S3. No rub. ABDOMEN: Soft, nontender. EXTREMITIES: No edema. LAB DATA: Revealed BUN and creatinine 14 ad 0.88, hemoglobin of 11.9. IMPRESSION: 1. Status post coronary artery bypass grafting stable. 2. Prior stenting of the RCA is stable. 3. History of diabetes. 4. Hypertension. 5. Hyperlipidemia. RECOMMENDATION: Will continue present therapy, increase his activity. I would expect he should be able to be discharged home soon and follow as an outpatient with Dr. Mojica. MMRAMAL / ABELN: [id number] /
[2020-03-18 12:06] LABS: Glucose,Whole Blood 195 mg/dL (75-99)
[2020-03-18 12:23] VITALS: RESP 19
[2020-03-18 12:24] VITALS: BP 122/71
[2020-03-18] MEDS: lisinopriL 5 MG TAB PO SCH (12:28)
[2020-03-18 12:47] VITALS: PULSE 68
--- NOTE | 2020-03-18 13:40 | P.PN ---
Subjective Progress Note Date: 03/18/20 Principal diagnosis: Status post CABG 2. Postoperative day #3 istory of present illness: This is a 54-year-old white male patient of Dr. Quick with history of coronary artery disease with previous intervention and stenting of the RCA, previous myocardial infarction, hypertension, hyperlipidemia, ischemic cardiomyopathy with an EF of 45%, uncontrolled type 2 diabetes mellitus with A1c level of 10.3%, chronic smoker, peripheral vascular disease. Patient was recently was experiencing mild anginal symptoms, and increased lower extremity edema. He underwent heart catheterization on 03/08/2020, showing patent RCA stent, mid LAD 99% stenosis at the bifurcation of the diagonal, patient was referred to cardiothoracic surgery for surgical revascularization. Today on 03/15/2020 patient underwent off-pump CABG 2 with sequential BRANDT to the second diagonal and LAD. worsening the patient in the postoperative period in the intensive care unit. Currently sedated, on mechanical ventilator, on assist-control mode with a rate of 12, tidal volume 600, FiO2 of 50% and PEEP of 10. Postoperative blood gases showed pO2 of 185, pCO2 of 46, and pH of 7.37, on FiO2 of 50%. FiO2 was dropped down to 40%. patient is hemodynamically stable, on lactated Ringer's at a rate of 50, insulin drip is at 5 units per hour, nitroglycerin drip is at 5 mics per minute, Diprivan drip has been turned off. PA pressures 28/15, cardiac output is 4.7, cardiac index is 2.0. One mediastinal and left pleural chest tube a total of 140 mL of sanguinous output, hemodynamically patient is stable, in sinus mechanism with a controlled rate. postoperative chest x-ray shows ET tube, NG tube [place]Shahriar catheter in appropriate positions, lungs are clear no pleural effusion. Patient was reevaluated today on 03/16/20, remains in the ICU, patient is postoperative day #1. Patient is sitting in her recliner in the ICU, denies any specific complaints, denies any pain and denies any shortness of breath, he is hemodynamically stable, on 2 L nasal cannula. He is on insulin drip at 7 units per hour. He is in sinus rhythm rate 75/m, and overall the patient is doing great. Chest x-ray showed mostly postoperative changes, cardiomegaly, low lung volumes, bibasilar atelectasis. CBC is relatively normal. Basic metabolic profile is normal. Patient was reevaluated today on 03/17/20, patient remains in the ICU, on room air, O2 saturations 95%, patient is hemodynamically stable. Patient is already ambulating awake, and in no distress. Patient is achieving 1500 mL on his incentive spirometer. Left pleural chest tube remains in place, 120 mL drained in the last 24 hours. Bedside telemetry showing normal sinus rhythm, rate is 80. Overall the patient is doing great. Reevaluated today on 03/18/20, patient seems to be doing great. He is on room air, ambulating in the hallway, in no form of distress. He is now postoperative day #3. Patient will likely be discharged home today. Objective - Vital Signs Vital signs: Vital Signs Temp 97.6 F 03/18/20 08:00 Pulse 68 03/18/20 13:11 Resp 19 03/18/20 12:30 BP 122/71 03/18/20 12:00 Pulse Ox 94 L 03/18/20 08:00 Intake & Output 03/17/20 03/18/20 03/18/20 18:59 06:59 18:59 Intake Total 1111.836 Output Total 100 550 675 Balance 1011.836 -550 -675 Weight 124.8 kg 126.1 kg Intake: IV 72 Lactated Ringers 1,000 ml 60 @ 20 mls/hr IV .Q24H [facility] Rx#:[id number] Normal Saline Pressure 12 Bag Intake, IV Titration 39.836 Amount Insulin Regular 100 unit 39.836 In Sodium Chloride 0.9% 100 ml @ Per Protocol IV .Q0M [facility] Rx#:[id number] Oral 1000 Output: Urine 100 550 675 Other: Voiding Method Indwelling Catheter Toilet Urinal ABP, PAP, CO, CI - Last Documented Arterial Blood Pressure 81/43 Pulmonary Artery Pressure 17/4 Cardiac Output 5.9 Cardiac Index 2.5 - Exam Physical Exam: Revealed 54-year-old white male in no distress. On room air. Head:, Atraumatic, normocephalic. HEENT:[Neck is supple.] [No neck masses.] [No thyromegaly.] [No JVD.] Chest: [Clear throughout, no crackles, no rhonchi, no wheezes.] Cardiac Exam: [Normal S1 and S2, no S3 gallop, no murmur.]. Abdomen: [Soft, nontender, no megaly, no rebound, no guarding, normal bowel sounds.] Extremities: [No clubbing, no edema, no cyanosis.] Neurological Exam: [No focal neurologic deficit.] Alert and oriented 3. Psychiatric: Normal mood affect and normal mental status examination. Skin: No rashes.Skin is warm and dry with evidence of good perfusion. Anterior chest incision well approximated and covered with dry intact dressing. - Labs CBC & Chem 7: 03/18/20 05:12 03/18/20 05:12 Labs: Abnormal Lab Results - Last 24 Hours (Table) 03/17/20 03/17/20 03/18/20 Range/Units 16:52 20:44 05:12 RBC 3.77 L (4.30-5.90) m/uL Hgb 11.9 L (13.0-17.5) gm/dL Hct 34.6 L (39.0-53.0) % Plt Count 118 L (150-450) k/uL Sodium (137-145) mmol/L Chloride (98-107) mmol/L Glucose (74-99) mg/dL POC Glucose (mg/dL) 155 H 170 H (75-99) mg/dL 03/18/20 03/18/20 03/18/20 Range/Units 05:12 07:45 12:04 RBC (4.30-5.90) m/uL Hgb (13.0-17.5) gm/dL Hct (39.0-53.0) % Plt Count (150-450) k/uL Sodium 135 L (137-145) mmol/L Chloride 108 H (98-107) mmol/L Glucose 172 H (74-99) mg/dL POC Glucose (mg/dL) 203 H 195 H (75-99) mg/dL Assessment and Plan Assessment: Impression: Status post CABG, postoperative day #3 Postoperative atelectasis, expected. History of myocardial infarction and stent of RCA. Ischemic cardiomyopathy and chronic systolic heart failure with ejection fraction of 45%. Type 2 diabetes. Diabetic peripheral neuropathy. Tobacco dependence syndrome. Chronic back pain. Dyslipidemia. Benign essential hypertension. Recommendation: Continue present supportive care measures. Continue incentive spirometry. Anticipate discharge home today. Continue statins, Plavix, beta blockers, and aspirin. Time with Patient: Less than 30
--- NOTE | 2020-03-18 17:29 | P.DS ---
Providers Date of admission: 03/15/20 05:37 Expected date of discharge: 03/18/20 Attending physician: Abdelrahman Mcginnis Consults: 03/15/20 10:34 Consult Physician Routine Consulting Provider: Corinne Shaw Consult Reason/Comments: Science Technicians Consult: post cardiac surgery Do you want consulting provider notified?: Yes Consult Physician Routine Consulting Provider: Alex Quick Consult Reason/Comments: medical management Do you want consulting provider notified?: Yes Consult Physician Routine Consulting Provider: Daja Donahue Consult Reason/Comments: Medical Malpractice Paralegal Consult: post cardiac surgery Do you want consulting provider notified?: Yes Primary care physician: Alex Quick [facility] Course: FINAL DIAGNOSIS: 1. Coronary artery disease 2. History of myocardial infarction, stent to the RCA 3. Hypertension 4. Hyperlipidemia 5. Ischemic cardiomyopathy, chronic heart failure with EF 45% 6. Uncontrolled type 2 diabetes mellitus with hyperglycemia and recent hemoglobin A1c 8.9% and peripheral neuropathy 7. Current tobacco dependence 8. Chronic back pain on chronic narcotics with pain contract PRINCIPAL PROCEDURE: 1. Off-pump coronary artery bypass grafting 2 with sequential left internal mammary artery to the second diagonal and left anterior descending coronary artery 2. Intraoperative transesophageal echocardiogram performed by anesthesia HISTORY OF PRESENT ILLNESS: This is a 54-year-old gentleman who follows on an outpatient basis with Dr. Quick. He had a history of stent placement to the RCA approximate one year ago, at that time he had moderate disease in the LAD which was treated medically. Apparently he had continued to have mild anginal type symptoms similar to when he was feeling prior to his stent but not quite as severe. In addition he had increased lower extremity edema. He was recommended to undergo heart catheterization which demonstrated patent RCA stent but the mid LAD had progressed to 99% stenosis at the bifurcation of the diagonal branch. The patient was referred to Dr. Mcginnis from cardiothoracic surgery. He was recommended to undergo elective coronary artery bypass surgery. The usual perioperative course was discussed in detail with the patient and his family, all risks and benefits were explained, all questions were answered, and consent was obtained to proceed with surgery. The patient was scheduled for surgery at the earliest possible date. HOSPITAL COURSE: The patient was brought to the hospital on 03/15/2020, taken to the preoperative area, prepared in the usual fashion, and subsequently taken to the operating room where Dr. Mcginnis performed off-pump two-vessel CABG. Upon completion of surgery the patient was transferred to the cardiovascular intensive care unit where he was recovered, monitored hemodynamically, and where he progressed to cardiac rehabilitation phase 1. He was extubated, all lines, tubes, and drips were discontinued when appropriate, and transfer orders were placed for 3 S. cardiac stepdown unit, however there was no bed availability and the patient remained on ICU as a stepdown patient until discharge. His oxygen was titrated down, he continued to work with physical and occupational therapy, he was tolerating oral diet, his pain was controlled, and he was ready to be discharged to home on postoperative day #3. He received written and verbal instruction regarding his medications, activity restrictions, signs and symptoms requiring physician notification, and follow-up appointments. COMPLICATIONS: The patient experienced no postoperative complications. Patient Condition at Discharge: Stable Plan - Discharge Summary Discharge Rx Participant: No New Discharge Prescriptions: New Baclofen [Lioresal] 20 mg PO BID PRN tab PRN Reason: Muscle Spasm Metoprolol Tartrate [Lopressor] 25 mg PO BID tab Pantoprazole [Protonix] 40 mg PO AC-BRKFST #30 tablet.[address] Martinez-Docusate Sodium [Senokot-S] 2 each PO HS tab Acetaminophen Tab [Tylenol] 1,000 mg PO Q6HR PRN tab PRN Reason: Fever And/ Or Pain lisinopriL [Zestril] 5 mg PO DAILY@1200 #30 tab Continue Aspirin EC [Ecotrin] 81 mg PO DAILY metFORMIN HCL [Glucophage] 1,000 mg PO BID HYDROcodone/APAP 7.5-325MG [[place] 7.5-325] 1 tab PO TID PRN PRN Reason: Pain Spironolactone [Aldactone] 25 mg PO DAILY #30 tab Clopidogrel [Plavix] 75 mg PO DAILY #30 tab Insulin Lispro [Admelog] See Protocol SQ AC-TID Atorvastatin [Lipitor] 80 mg PO HS Changed Furosemide [Lasix] 80 mg PO DAILY PRN #0 PRN Reason: Edema Potassium Gluconate 99 mg PO HS PRN #0 PRN Reason: Edema Discontinued Baclofen [Lioresal] 20 tab PO BID PRN PRN Reason: Muscle Spasm Metoprolol Tartrate [Lopressor] 50 mg PO BID Isosorbide Mononitrate ER [Imdur] 30 mg PO DAILY Discharge Medication List Aspirin EC [Ecotrin] 81 mg PO DAILY 12/28/14 [History] metFORMIN HCL [Glucophage] 1,000 mg PO BID 08/02/14 [History] HYDROcodone/APAP 7.5-325MG [[place] 7.5-325] 1 tab PO TID PRN 05/05/16 [History] Clopidogrel [Plavix] 75 mg PO DAILY #30 tab 03/21/19 [Rx] Spironolactone [Aldactone] 25 mg PO DAILY #30 tab 03/21/19 [Rx] Atorvastatin [Lipitor] 80 mg PO HS 04/06/19 [History] Insulin Lispro [Admelog] See Protocol SQ AC-TID 04/06/19 [History] Acetaminophen Tab [Tylenol] 1,000 mg PO Q6HR PRN tab 03/18/20 [Rx] Baclofen [Lioresal] 20 mg PO BID PRN tab 03/18/20 [Rx] Furosemide [Lasix] 80 mg PO DAILY PRN #0 03/18/20 [Rx] Metoprolol Tartrate [Lopressor] 25 mg PO BID tab 03/18/20 [Rx] Pantoprazole [Protonix] 40 mg PO AC-BRKFST #30 tablet. 03/18/20 [Rx] Potassium Gluconate 99 mg PO HS PRN #0 03/18/20 [Rx] Sennosides-Docusate Sodium [Senokot-S] 2 each PO HS tab 03/18/20 [Rx] lisinopriL [Zestril] 5 mg PO DAILY@1200 #30 tab 03/18/20 [Rx] Follow up Appointment(s)/Referral(s): Corinne Shaw MD [STAFF PHYSICIAN] - 03/30/20 10:45 am Zuleyma Villatoro NPC [Nurse Practitioner] - 03/24/20 12:00 pm Re[facility] PH,Cardiac [NON-STAFF] - 4 Weeks (You will receive a call for cardiac rehab for evaluation at about 4-6 weeks after surgery) Gumaro Mojica MD [STAFF PHYSICIAN] - 2 Weeks (Dr. Mojica 's office will call with a follow up appointment per his office.) Alex Quick DO [Primary Care Provider] - 03/25/20 3:00 pm Abdelrahman Mcginnis MD [STAFF PHYSICIAN] - 04/15/20 9:30 am [facility], [NON-STAFF] - 1-2 Days Ambulatory/Diagnostic Orders: Complete Blood Count w/diff [LAB.AMB] Time Frame: 3 Days, Location: None Selected Comprehensive Metabolic Panel [LAB.AMB] Time Frame: 3 Days, Location: None Selected Activity/Diet/Wound Care/Special Instructions: DISCHARGE INSTRUCTIONS: 1. No driving for 4 weeks, or until physician gives their ok. 2. The patient should sleep in their own bed, no medical bed needed. 3. Stairs are not an issue. If the bedroom is upstairs, it is advised that the patient go up at night and down in the morning for the first week. Go slowly, using handrail and take 1 step at a time. 4. PASCALE hose are to be worn for 30 days or until physician discontinues. 5. Heart hugger is to be worn 100% of the time until physician discontinues.(except when showering) 6. No lifting, pushing, or pulling more than 10 pounds for 12 weeks. The physician will advise of any restriction changes. 7. The patient is expected to continue the prescribed walking program. 8. Continue pain control per as needed orders. 9. Continue with incentive spirometry and splinting/heart hugger until otherwise directed by the physician. 10. Must shower daily using liquid antibacterial soap and a separate white washcloth for each individual incision. 11. Routine sternal incision care. No powders, lotions, ointments on incisions. No dressings are necessary on incisions unless they are draining. Dermabond tape is to remain on sternal incision until surgeon follow-up. 12. Please call surgeon/RISK AND INSURANCE MANAGER for temp greater than 101 F or purulent drainage from incisions. 13. All prescriptions given by surgeon for 30 days. Refills need to be filled through elementary school tutor/primary care physician. 14. A Red armband has been placed on the patient. It should be worn for 30 days post surgery and will be removed by the cardiac surgeons. If an ER visit is necessary, please make sure the number on the Red armband is called. 15. You have been referred to and are expected to begin Cardiac Rehab in approximately 4-6 weeks. HOME HEALTH SERVICES TO PROVIDE: RN SKILLED HOME CARE SERVICES FOR POST-OP SURGICAL PATIENTS WITH THE FOLLOWING: Coronary Artery Bypass Surgery (CABG), Mitral Valve Replacement/Repair ( MVR), Aortic Valve Replacement/Repair (AVR) RN TO CONTINUE EDUCATION FROM ``ROAD TO A HEALTH HEART PATIENT EDUCATION MANUAL (GIVEN TO PATIENT IN THE HOSPITAL) MEDICATION RECONCILIATION WITH EDUCATION NEEDED ON FIRST HOME VISIT EMPHASIZE IMPORTANCE OF WEARING BREAST SUPPORT/HEART HUGGER ENCOURAGE USE OF INCENTIVE SPIROMETER 10 X EVERY HOUR WHILE AWAKE ENCOURAGE UTILIZATION OF LOWER EXTREMITY COMPRESSION STOCKINGS/PASCALE HOSE and ELEVATE LEGS ABOVE LEVEL OF HEART WHILE AT REST. ENCOURAGE AMBULATION 3-5x/day INCREASING TOLERATES, WHILE AVOIDING EXTREMES IN TEMPERATURE FREQUENCY: RN TO OPEN THE PATIENT WITHIN 24 HOURS OF DISCHARGE FROM THE HOSPITAL WITH TELEHEALTH INSTALLED AT [facility], RN TO VISIT 2-3 X A WEEK FOR 4 WEEKS ESTABLISHED BY PATIENT NEEDS. LABORATORY: CBC, CMP TO BE DRAWN ON THE THIRD DAY HOME, (RAN STAT) FAX RESULTS TO [phone]. TELEHEALTH PARAMETERS: WEIGHT: NOTIFY MD OF WEIGHT GAIN OF 2 LBS IN 24 HOURS OR 5 LBS IN ONE WEEK HR: NOTIFY MD OF HR <55 BPM OR HR>100 BPM BP: NOTIFY MD IF BP <90/55 OR BP>140/100 O2 SAT: NOTIFY MD IF PO2<93% ON ROOM AIR SEND TELEHEALTH REPORT TO PUBLIC RELATIONS COORDINATOR AND CARDIOVASCULAR SURGEON THE FIRST WEEK OF CARE AND THEN BI-WEEKLY. PLEASE ADDITIONALLY COMMUNICATE ANY ABNORMALS AND NEW FINDINGS TO THE SURGEONS OFFICE. For any questions or concerns please call manager personal Zuleyma @ or Mihir @ Discharge Disposition: HOME WITH HOME HEALTH SERVICES
--- NOTE | 2020-03-20 10:17 | CDI ---
Documentation Clarification Form Date: 03/20/20 From: Kasandra Solomon CCS Phone: If you have a question about this query, please contact Maribell Mcclain, Stemhole Borer at [phone] between 8am and 5pm. Admit Date: 03/15/20 Discharge Date: 03/18/20 Patient Name: Ji Suarez Visit Number: [id number] ATTENTION: The Clinical Documentation Specialists (CDI) and [facility] Coding Staff appreciate your assistance in clarifying documentation. Please respond to the clarification below the line at the bottom and electronically sign. The CDI & [facility] Coding staff will review the response and follow-up if needed. Please note: Queries are made part of the Legal Health Record. If you have any questions, please contact the author of this message via ITS. Dear Dr. Mcginnis, Documentation states: Hgb 12.0, 10.9, 11.1- Hct 34.5, 31.2, 32.9 History/Risk Factors: Post Op CABG, CAD, HTN, CHF, DM Clinical indicators: Estimated blood loss 2500 ml, Abnormal: Hgb 12.0, 10.9, 11.1- Hct 34.5, 31.2, 32.9 Treatment: Monitor Hgb/Hct, Daily CBC Clinical significance of diagnostic testing and treatment CANNOT be assumed or coded without physician documentation of significance if any. Please clarify what abnormal laboratory signifies: Acute blood loss anemia as expected post CABG Acute blood loss anemia unexpected complication post CABG Disease process, please specify Abnormal Lab Value Unable to determine Other, please specify Very mild blood loss anemia expected with CABG MTDD
== END 2020-03-18 13:47 | disposition home or self-care (01) | DRG 236 ==
LOC: 2ORMAIN 05:37 → 2SICU 11:31
PROVIDERS: ADMIT Thoracic Surgery (Cardiothoracic Vascular Surgery); ATTEND Thoracic Surgery (Cardiothoracic Vascular Surgery)
PROC: 02110Z9 Bypass Coronary Artery, Two Arteries from Left Internal Mammary, Open Approach (ICD-10-PCS; principal; 2020-03-15 08:00)
DX: I25.119 Atherosclerotic heart disease of native coronary artery with unspecified angina pectoris (principal); I50.22 Chronic systolic (congestive) heart failure; J98.11 Atelectasis; D62 Acute posthemorrhagic anemia; I11.0 Hypertensive heart disease with heart failure; E11.51 Type 2 diabetes mellitus with diabetic peripheral angiopathy without gangrene; E11.42 Type 2 diabetes mellitus with diabetic polyneuropathy; E11.65 Type 2 diabetes mellitus with hyperglycemia; Z79.4 Long term (current) use of insulin; I25.84 Coronary atherosclerosis due to calcified coronary lesion; E78.5 Hyperlipidemia, unspecified; I25.5 Ischemic cardiomyopathy; F17.210 Nicotine dependence, cigarettes, uncomplicated; I89.0 Lymphedema, not elsewhere classified; M51.86 Other intervertebral disc disorders, lumbar region; I07.1 Rheumatic tricuspid insufficiency; G89.29 Other chronic pain; E66.9 Obesity, unspecified; I25.2 Old myocardial infarction; Z71.6 Tobacco abuse counseling; Z71.3 Dietary counseling and surveillance; Z68.37 Body mass index [BMI] 37.0-37.9, adult; Z79.02 Long term (current) use of antithrombotics/antiplatelets; Z79.891 Long term (current) use of opiate analgesic; Z79.899 Other long term (current) drug therapy; Z79.82 Long term (current) use of aspirin; Z95.5 Presence of coronary angioplasty implant and graft; Z87.01 Personal history of pneumonia (recurrent); Z98.890 Other specified postprocedural states; Z80.1 Family history of malignant neoplasm of trachea, bronchus and lung; Z83.3 Family history of diabetes mellitus
CPT/HCPCS: 36600; 71045; 71046; 80048; 80053; 80061; 80074; 81003; 82330; 82805; 83036; 83735; 85025; 85520; 85610; 85730; 86850; 86891; 86900; 86901; 86920; 87070; 93458; 93880; 93970; 94002; 94640

== ENCOUNTER → 2020-03-23 | Outpatient (CLI) | payer OTHER ==
[2020-03-23 16:14] LABS: ALT 35 U/L (4-49); AST 43 U/L (17-59); African American GFR (CKD) 69 (>60 ml/min/1.73 sqM); Albumin 3.4 g/dL (3.5-5.0); Albumin/Globulin Ratio 1.4; Alkaline Phosphatase 86 U/L (38-126); Anion Gap 7 mmol/L; Blood Urea Nitrogen 18 mg/dL (9-20); Calcium 8.7 mg/dL (8.4-10.2); Carbon Dioxide 26 mmol/L (22-30); Chloride 104 mmol/L (98-107); Globulin 2.5 g/dL; Glucose 221 mg/dL (74-99); Non-African American GFR(CKD) 60 (>60 ml/min/1.73 sqM); Potassium 4.1 mmol/L (3.5-5.1); Sodium 137 mmol/L (137-145); Total Bilirubin 0.5 mg/dL (0.2-1.3); Total Protein 5.9 g/dL (6.3-8.2)
== END | disposition home or self-care (01) ==
LOC: LABWHC1 15:02
PROVIDERS: ATTEND Nurse Practitioner Acute Care
DX: Z48.812 Encounter for surgical aftercare following surgery on the circulatory system (principal)
CPT/HCPCS: 36415; 80053

== ENCOUNTER 2021-09-05 16:40 | Inpatient (IN) | payer OTHER ==
[2021-09-05] MEDS ORDERED: VANCOMYCIN IV PER PHARMACY 1 EACH MISC MISCELLANE PRN (19:13)
[2021-09-05] MEDS ORDERED: VANCOMYCIN 1,750 MG in SODIUM CHLORIDE 0.9% 500 ML 500 ML IVPB STA (19:17)
[2021-09-05 20:04] LABS: Basophils % (A) 0 %; Eosinophils # (A) 0.1 k/uL (0-0.7); Eosinophils % (A) 1 %; HCT 39.9 % (39.0-53.0); HGB 13.4 gm/dL (13.0-17.5); Lymphocytes # (A) 1.2 k/uL (1.0-4.8); Lymphocytes % (A) 13 %; MCH 30.5 pg (25.0-35.0); MCHC 33.6 g/dL (31.0-37.0); MCV 90.8 fL (80.0-100.0); Mean Platelet Volume 8.6; Monocytes # (A) 0.3 k/uL (0-1.0); Monocytes % (A) 3 %; Neutrophils # (A) 7.5 k/uL (1.3-7.7); Neutrophils % (A) 82 %; Platelet Count 208 k/uL (150-450); RDW 12.5 % (11.5-15.5); WBC 9.1 k/uL (3.8-10.6)
[2021-09-05 20:16] LABS: ALT 18 U/L (4-49); AST 16 U/L (17-59); African American GFR (CKD) >90 (>60 ml/min/1.73 sqM); Albumin 3.3 g/dL (3.5-5.0); Alkaline Phosphatase 112 U/L (38-126); Anion Gap 6 mmol/L; Blood Urea Nitrogen 13 mg/dL (9-20); Calcium 8.7 mg/dL (8.4-10.2); Carbon Dioxide 24 mmol/L (22-30); Chloride 105 mmol/L (98-107); Glucose 334 mg/dL (74-99); Magnesium 1.8 mg/dL (1.6-2.3); Non-African American GFR(CKD) 82 (>60 ml/min/1.73 sqM); Potassium 4.2 mmol/L (3.5-5.1); Sodium 135 mmol/L (137-145); Total Bilirubin 0.4 mg/dL (0.2-1.3); Total Protein 6.6 g/dL (6.3-8.2)
--- NOTE | 2021-09-05 21:09 | CT ---
EXAMINATION TYPE: CT lower extremity RT w con DATE OF EXAM: 09/05/2021 COMPARISON: None HISTORY: pain, swelling, infection CT DLP: 726.8 mGycm Automated exposure control for dose reduction was used. CONTRAST: Performed with IV Contrast, patient injected with 100 mL of Isovue 300. Images obtained from the proximal tibia to the bottom of the foot without contrast. There is a large Achilles calcaneal spur. Ankle mortise is anatomic. Subtalar joint appears normal. I see no fracture nor dislocation. There is no evidence of focal bone destruction. There is diffuse ford bcutaneous edema around the lower leg. There is no evidence of a discrete abscess. IMPRESSION: Diffuse subcutaneous edema. No abscess. No fracture. No evidence of osteomyelitis. Moderate plantar and Achilles calcaneal spurring.
[2021-09-05] MEDS ORDERED: NALOXONE 0.4 MG/ML 1 ML VIAL IV PRN (21:37)
[2021-09-05] MEDS ORDERED: KETOROLAC 15 MG/ML 1 ML VIAL IVP PRN (21:37)
[2021-09-05] MEDS ORDERED: FUROSEMIDE 20 MG TAB PO PRN (21:39)
[2021-09-05] MEDS ORDERED: CYCLOBENZAPRINE 10 MG TAB PO PRN (21:39)
[2021-09-05] MEDS ORDERED: metFORMIN 500 MG TAB PO PRN (22:00)
--- NOTE | 2021-09-05 22:38 | ED ---
General Adult HPI - General Chief complaint: Skin/Abscess/Foreign Body Stated complaint: Right Ankle Problem Time Seen by Provider: 09/05/21 18:43 Source: patient, RN notes reviewed, old records reviewed Mode of arrival: ambulatory Limitations: no limitations - History of Present Illness Initial comments: Patient is a 56-year-old male that was evaluated when he was placed in a room. His past medical history remarkable for significant cardiac disease, heart failure, bilateral lymphedema presents emergency Department complaining of a wound located over the right ankle. He states that he noticed that earlier this week. He was given Bactrim outpatient by his PCP, however he believes it is getting worse. It is more warm, erythematous with purulent discharge now. He has been taking the Bactrim. Has been taking less Lasix lately. Denies any sy stemic symptoms including fevers, chills, cough. Denies any chest pain, abdominal pain, shortness of breath. Denies any nausea, vomiting, diarrhea. Denies any numbness of the right lower extremity or weakness. He does endorse pain at the site of the wound. Denies any changes to the left leg. Denies any spread, and believes it is a local cellulitis denies. The drainage and does not seem to be getting improved. Presents over concern for worsening skin infection. - Related Data Home Medications Medication Instructions Recorded Confirmed HYDROcodone/APAP 7.5-325MG [[place] 1 tab PO TID 05/05/16 09/05/21 7.5-325] Atorvastatin [Lipitor] 80 mg PO DAILY 04/06/19 09/05/21 Cyclobenzaprine [Flexeril] 10 mg PO TID PRN 09/05/21 09/05/21 Furosemide [Lasix] 20 mg PO DAILY PRN 09/05/21 09/05/21 INSULIN LISPRO (HumaLOG) [humaLOG] See Protocol SQ AC-TID PRN 09/05/21 09/05/21 Ibuprofen [Motrin] 800 mg PO TID PRN 09/05/21 09/05/21 Mupirocin 2% Oint [Bactroban 2% 1 applic TOPICAL BID PRN 09/05/21 09/05/21 Oint] Sulfamethox-Tmp 800-160Mg [Bactrim 1 tab PO Q12HR 09/05/21 09/05/21 DS 800-160 mg] lisinopriL [Zestril] 5 mg PO DAILY 09/05/21 09/05/21 metFORMIN HCL ER [Glucophage XR] 500 - 1,000 mg PO BID PRN 09/05/21 09/05/21 Previous Rx's Medication Instructions Recorded Clopidogrel [Plavix] 75 mg PO DAILY #30 tab 03/21/19 Metoprolol Tartrate [Lopressor] 25 mg PO BID tab 03/18/20 Allergies Allergy/AdvReac Type Severity Reaction Status Date / Time No Known Allergies Allergy Verified 09/05/21 16:54 Review of Systems ROS Statement: Those systems with pertinent positive or pertinent negative responses have been documented in the HPI. Review of Systems: CONST: Denies fever EYES: Denies blurry vision ENT: Denies nasal congestion C/V: Denies Chest pain RESP: Denies shortness of breath GI: Denies abdominal pain : Denies dysuria SKIN: Endorses skin infection of the right ankle. MSK: Denies joint pain. NEURO: Denies headache ROS Other: All systems not noted in ROS Statement are negative. Past Medical History Past Medical History: Coronary Artery Disease (CAD), Chest Pain / Angina, Heart Failure, Diabetes Mellitus, Hyperlipidemia, Hypertension, Myocardial Infarction ([place]), Pneumonia Additional Past Medical History / Comment(s): lymphedema afsaneh legs, bulging discs, carpal tunnel, neuropathy, recent chest pressure Last Myocardial Infarction Date:: 2008 History of Any Multi-Drug Resistant Organisms: None Reported Past Surgical History: Heart Catheterization With Stent Additional Past Surgical History / Comment(s): laser vein removal on left leg, foot surg. as a child, had all teeth removed recently Past Anesthesia/Blood Transfusion Reactions: No Reported Reaction Date of Last Stent Placement:: 2018 Past Psychological History: No Psychological Hx Reported Smoking Status: Current every day smoker Past Alcohol Use History: None Reported Past Drug Use History: None Reported - Past Family History Father Family Medical History: Cancer Additional Family Medical History / Comment(s): from lung ca Mother Family Medical History: Diabetes Mellitus Additional Family Medical History / Comment(s): from complication of diabetes General Exam - General Exam Comments Initial Comments: General: Appears in no acute distress. HEAD: Normal with no signs of head trauma. EYES: PERRLA, EOMI, conjunctiva normal, no discharge. ENT: Hearing grossly intact, normal oropharynx. RESPIRATORY: Clear breath sounds bilaterally. No wheezes, rales, or rhonchi. C/V: Regular rate and rhythm. S1 and S2 auscultated. Significant bilateral lower extremity pitting edema. Patient is not taking his water pills. It is approximately 3+. ABD: Abd is soft, nontender, nondistended EXT: Normal range of motion, no obvious deformity SKIN: Patient has erythema and induration located over the anterior, medial, lat eral aspect of the right ochoa and ankle. No obvious fluctuance but there is purulent drainage. Does appear to be a worsening cellulitis. Cannot rule out underlying infection of the bone, soft tissue. NEURO: Alert and oriented 4. Limitations: no limitations Course Vital Signs 09/05/21 16:54 Temperature 98 F Pulse Rate 104 H Respiratory 18 Rate Blood Pressure 187/93 O2 Sat by Pulse 99 Oximetry Medical Decision Making - Medical Decision Making Based on the patient's presentation and physical exam, I'm concerned for failed outpatient treatment of a cellulitis of the right lower extremity. Patient has a history of lymphedema. He does not appear to be having worsening infection at this time, however we will obtain cultures, infectious workup. Patient will be started empirically on vancomycin for his lower extremities infection. We will obtain CT imaging to rule out any underlying osteomyelitis or worsening soft tissue infection. Patient was in agreement this plan. He took a Paia just prior to arrival for pain, will be given Toradol for pain management at this time. Patient's laboratory studies are remarkable for a hyperglycemia of 334 in the setting of poorly controlled diabetes. Lactate is within normal limits. Re mainder the labs are relatively unremarkable. Lower extremity CTA revealed no sign of worsening infection of the right lower extremity. No evidence of osteomyelitis. Cultures were obtained and sent. Patient was not administered IV fluids as he is tolerating oral fluids at this time, he has a history of CHF and has not been compliant with his diuretics. Therefore IV fluids will be held at this time, as the patient appears to have a localized skin infection. I spoke with the patient regarding the results of his laboratory studies and imaging. I would like to admit him to the hospital for IV antibiotics due to failed outpatient treatment. He was in agreement this plan. I spoke with the admitting physician, Dr. Quick who accepted the patient. He requested that I consult infectious disease, Dr. Peña which I did. Patient was therefore admitted in stable condition. - Lab Data Result diagrams: 09/05/21 19:40 09/05/21 19:40 Lab Results 09/05/21 09/05/21 09/05/21 Range/Units 19:40 19:40 19:40 WBC 9.1 (3.8-10.6) k/uL RBC 4.40 (4.30-5.90) m/uL Hgb 13.4 (13.0-17.5) gm/dL Hct 39.9 (39.0-53.0) % MCV 90.8 (80.0-100.0) fL MCH 30.5 (25.0-35.0) pg MCHC 33.6 (31.0-37.0) g/dL RDW 12.5 (11.5-15.5) % Plt Count 208 (150-450) k/uL MPV 8.6 Neutrophils % 82 % Lymphocytes % 13 % Monocytes % 3 % Eosinophils % 1 % Basophils % 0 % Neutrophils # 7.5 (1.3-7.7) k/uL Lymphocytes # 1.2 (1.0-4.8) k/uL Monocytes # 0.3 (0-1.0) k/uL Eosinophils # 0.1 (0-0.7) k/uL Basophils # 0.0 (0-0.2) k/uL Sodium 135 L (137-145) mmol/L Potassium 4.2 (3.5-5.1) mmol/L Chloride 105 (98-107) mmol/L Carbon Dioxide 24 (22-30) mmol/L Anion Gap 6 mmol/L BUN 13 (9-20) mg/dL Creatinine 1.01 (0.66-1.25) mg/dL Est GFR (CKD-EPI)AfAm >90 (>60 ml/min/1.73 sqM) Est GFR (CKD-EPI)NonAf 82 (>60 ml/min/1.73 sqM) Glucose 334 H (74-99) mg/dL Plasma Lactic Acid Sergio 1.2 (0.7-2.0) mmol/L Calcium 8.7 (8.4-10.2) mg/dL Magnesium 1.8 (1.6-2.3) mg/dL Total Bilirubin 0.4 (0.2-1.3) mg/dL AST 16 L (17-59) U/L ALT 18 (4-49) U/L Alkaline Phosphatase 112 (38-126) U/L Total Protein 6.6 (6.3-8.2) g/dL Albumin 3.3 L (3.5-5.0) g/dL Disposition Clinical Impression: Leg edema, Uncontrolled diabetes mellitus, Cellulitis Disposition: ADMITTED IP TO THIS HOSP Condition: Stable
[2021-09-05] MEDS: HYDROcodone/APAP 7.5-325MG 1 EACH TAB PO SCH (22:45)
[2021-09-06] MEDS: HEPARIN SODIUM,PORCINE/PF 5,000 UNIT/0.5 ML SYRINGE SQ SCH ×4 (02:26→15:39)
[2021-09-06 06:33] LABS: Basophils % (A) 0 %; Eosinophils # (A) 0.1 k/uL (0-0.7); Eosinophils % (A) 1 %; HCT 36.8 % (39.0-53.0); HGB 12.1 gm/dL (13.0-17.5); Lymphocytes # (A) 1.5 k/uL (1.0-4.8); Lymphocytes % (A) 16 %; MCHC 32.9 g/dL (31.0-37.0); Monocytes # (A) 0.3 k/uL (0-1.0); Monocytes % (A) 4 %; Neutrophils # (A) 7.3 k/uL (1.3-7.7); Neutrophils % (A) 79 %; Platelet Count 194 k/uL (150-450); RBC 4.04 m/uL (4.30-5.90); WBC 9.2 k/uL (3.8-10.6)
[2021-09-06 06:45] LABS: Calcium 8.2 mg/dL (8.4-10.2); Potassium 4.4 mmol/L (3.5-5.1)
[2021-09-06 07:25] LABS: Glucose,Whole Blood 270 mg/dL (75-99)
[2021-09-06] MEDS: INSULIN ASPART (NovoLOG) 100 UNIT/ML VIAL SQ SCH ×3 (08:32→17:51)
[2021-09-06] MEDS: HYDROcodone/APAP 7.5-325MG 1 EACH TAB PO SCH ×3 (08:42→20:55)
[2021-09-06] MEDS: CLOPIDOGREL 75 MG TAB PO SCH (08:59)
[2021-09-06] MEDS: METOPROLOL TARTRATE 25 MG TAB PO SCH ×2 (08:59→20:55)
[2021-09-06] MEDS: ATORVASTATIN 80 MG TAB PO SCH (08:59)
[2021-09-06] MEDS: lisinopriL 5 MG TAB PO SCH (09:00)
[2021-09-06] MEDS: VANCOMYCIN 1,750 MG in SODIUM CHLORIDE 0.9% 500 ML 500 ML IVPB SCH ×2 (09:02→20:53)
[2021-09-06] MEDS ORDERED: PANTOPRAZOLE 40 MG/10 ML VIAL IVP SCH (12:15)
[2021-09-06 12:16] LABS: Glucose,Whole Blood 188 mg/dL (75-99)
--- NOTE | 2021-09-06 15:08 | P.HPIM ---
History of Present Illness H&P Date: 09/06/21 Chief Complaint: Right lower extremity cellulitis, failed outpatient treatment This is a 56-year-old gentleman with history of CAD,[place], CABG-2020, cardiac stenting, ischemic cardiomyopathy, hypertension, hyperlipidemia, bilateral lymphedema, diabetes mellitus, nicotine dependence, peripheral vascular disease and multiple other medical issues presented to the ER with worsening right lower extremity/ankle cellulitis failed outpatient treatment with Bactrim. Has not been taking his diuretics. Reporting increased tenderness, redness, edema and purulent drainage. Denies weakness or numbness of affected extremity. Denies any nausea vomiting or diarrhea. Denies any abdominal pain. Denies any fevers or chills. Denies chest pain, palpitations or shortness of breath. Lactate within normal limits .Lower extremity CT reported diffuse subcutaneous edema, no abscess, no fracture ,no osteomyelitis. Moderate plantar and Achilles Heel Spurring. Cultures obtained .Blood sugars poorly controlled, 334 on admission. Afebrile, normal WBC .BUN 13, creatinine 1.01 .Vancomycin initiated. Review of Systems Constitutional: Denied any fatigue denied any fever. Cardio vascular: denied any chest pain, palpitations Gastrointestinal denied any nausea vomiting Pulmonary: Denied any shortness of breath cough Neurologic denied any new focal deficits ROS Statement: Those systems with pertinent positive or pertinent negative responses have been documented in the HPI. ROS Other: All systems not noted in ROS Statement are negative. Past Medical History Past Medical History: Coronary Artery Disease (CAD), Chest Pain / Angina, Heart Failure, Diabetes Mellitus, Hyperlipidemia, Hypertension, Myocardial Infarction ([place]), Pneumonia Additional Past Medical History / Comment(s): lymphedema afsaneh legs, bulging discs, carpal tunnel, neuropathy, recent chest pressure Last Myocardial Infarction Date:: 2008 History of Any Multi-Drug Resistant Organisms: None Reported Past Surgical History: Heart Catheterization With Stent Additional Past Surgical History / Comment(s): laser vein removal on left leg, foot surg. as a child, had all teeth removed recently Past Anesthesia/Blood Transfusion Reactions: No Reported Reaction Date of Last Stent Placement:: 2018 Past Psychological History: No Psychological Hx Reported Smoking Status: Current every day smoker Past Alcohol Use History: None Reported Past Drug Use History: None Reported - Past Family History Father Family Medical History: Cancer Additional Family Medical History / Comment(s): from lung ca Mother Family Medical History: Diabetes Mellitus Additional Family Medical History / Comment(s): from complication of diabetes Medications and Allergies Home Medications Medication Instructions Recorded Confirmed Type HYDROcodone/APAP 7.5-325MG [[place] 1 tab PO TID 05/05/16 09/05/21 History 7.5-325] Clopidogrel [Plavix] 75 mg PO DAILY #30 tab 03/21/19 09/05/21 Rx Atorvastatin [Lipitor] 80 mg PO DAILY 04/06/19 09/05/21 History Metoprolol Tartrate [Lopressor] 25 mg PO BID tab 03/18/20 09/05/21 Rx Cyclobenzaprine [Flexeril] 10 mg PO TID PRN 09/05/21 09/05/21 History Furosemide [Lasix] 20 mg PO DAILY PRN 09/05/21 09/05/21 History INSULIN LISPRO (HumaLOG) [humaLOG] See Protocol SQ AC-TID PRN 09/05/21 09/05/21 History Ibuprofen [Motrin] 800 mg PO TID PRN 09/05/21 09/05/21 History Mupirocin 2% Oint [Bactroban 2% 1 applic TOPICAL BID PRN 09/05/21 09/05/21 History Oint] Sulfamethox-Tmp 800-160Mg [Bactrim 1 tab PO Q12HR 09/05/21 09/05/21 History DS 800-160 mg] lisinopriL [Zestril] 5 mg PO DAILY 09/05/21 09/05/21 History metFORMIN HCL ER [Glucophage XR] 500 - 1,000 mg PO BID PRN 09/05/21 09/05/21 History Allergies Allergy/AdvReac Type Severity Reaction Status Date / Time No Known Allergies Allergy Verified 09/05/21 16:54 Physical Exam Vitals: Vital Signs Temp Pulse Pulse Resp BP BP Pulse Ox 09/06/21 12:59 98.4 F 68 17 113/61 96 09/06/21 07:58 98.2 F 80 17 150/71 97 09/06/21 04:05 98.3 F 81 18 163/84 98 09/06/21 03:28 18 09/06/21 01:57 98.2 F 80 18 161/88 99 09/05/21 16:54 98 F 104 H 18 187/93 99 Intake and Output 09/05/21 09/06/21 09/06/21 22:59 06:59 14:59 Intake Total 500 Balance 500 Intake: Intake, IV Titration 500 Amount Vancomycin 1,750 mg In 500 Sodium Chloride 0.9% 500 ml 500 ml @ 167 mls/hr IVPB ONCE STA Rx#: [id number] Other: # Bowel Movements 0 Weight 117.934 kg 88.5 kg Physical Exam: GENERAL: Sitting up in bed, no acute distress, well-nourished Head:, Atraumatic, normocephalic. HEENT:Neck is supple, no JVD.No thyromegaly. Chest: Clear throughout, no crackles, no rhonchi, no wheezes. Cardiac Exam: Normal S1 and S2, no S3 gallop, no murmur. Abdomen: Soft, nontender, no organomegaly,no rebound, no guarding, positive bowel sounds. Extremities: Right lower extremity/ankle cellulitis, tender, reddened, positive edema, positive induration with purulent drainage Neurological Exam: No focal neurologic deficit.Alert and oriented 3. Psychiatric: Alert and oriented 3, mood and affect normal. Skin: No rash ,Warm and dry. Results CBC & Chem 7: 09/06/21 05:55 09/06/21 05:55 Labs: Abnormal Lab Results - Last 24 Hours (Table) 09/05/21 09/06/21 09/06/21 Range/Units 19:40 05:55 05:55 RBC 4.04 L (4.30-5.90) m/uL Hgb 12.1 L (13.0-17.5) gm/dL Hct 36.8 L (39.0-53.0) % Sodium 135 L 135 L (137-145) mmol/L Chloride 109 H (98-107) mmol/L Glucose 334 H 233 H (74-99) mg/dL POC Glucose (mg/dL) (75-99) mg/dL Calcium 8.2 L (8.4-10.2) mg/dL AST 16 L (17-59) U/L Albumin 3.3 L (3.5-5.0) g/dL 09/06/21 09/06/21 Range/Units 07:23 12:14 RBC (4.30-5.90) m/uL Hgb (13.0-17.5) gm/dL Hct (39.0-53.0) % Sodium (137-145) mmol/L Chloride (98-107) mmol/L Glucose (74-99) mg/dL POC Glucose (mg/dL) 270 H 188 H (75-99) mg/dL Calcium (8.4-10.2) mg/dL AST (17-59) U/L Albumin (3.5-5.0) g/dL Microbiology - Last 24 Hours (Table) 09/05/21 20:05 Gram Stain - Preliminary Ankle - Right Wound Culture - Preliminary 09/05/21 20:05 Anaerobic Culture - Preliminary Ankle - Right Thrombosis Risk Factor Assmnt - Choose All That Apply Any of the Below Risk Factors Present?: Yes Each Factor Represents 1 point: Obesity (BMI >25), Swollen legs (current) Each Risk Factor Represents 2 Points: Age 61-74 years Thrombosis Risk Factor Assessment Total Risk Factor Score: 4 Thrombosis Risk Factor Assessment Level: Moderate Risk Assessment and Plan Assessment: Right lower extremity cellulitis, failed outpatient treatment History of bilateral lymphedema Diabetes mellitus type 2, uncontrolled, hyperglycemic Diabetic peripheral neuropathy CAD, history of [place], CABG-2019, cardiac stenting Ischemic cardiomyopathy,Chronic systolic heart failure, EF 45% Hypertension Hyperlipidemia Ongoing nicotine dependence Chronic back pain Plan: Continue on current medication regime ,monitoring and symptomatic treatment. Maintain IV antibiotics. Close monitoring of renal function with repeat labs ordered for a.m. right ankle cultures obtained and pending .ID consult in place, recommendations pending. Home meds have been reviewed and resumed accordingly. Heparin subcu in place for DVT prophylaxis, Protonix for GI prophylaxis. Hyperglycemic, hemoglobin A1c ordered. Lantus added to med r egimen in addition to sliding scale, close monitoring of Accu-Cheks. Smoking cessation reinforced, nicotine patch ordered. The impression and plan of care has been dictated as directed. : I performed a history and examination of this patient, discussed the same with the dictator. I agree with the dictator's note ,documented as a scribe. Any additional findings or plans will be noted.
[2021-09-06] MEDS: INSULIN DETEMIR (LEVEMIR) 100 UNIT/ML SYR SQ SCH (15:38)
[2021-09-06] MEDS: NICOTINE 21MG/24HR PATCH TRANSDERM SCH (15:38)
[2021-09-06 17:22] LABS: Glucose,Whole Blood 239 mg/dL (75-99)
[2021-09-06] MEDS: HYDROmorphone 1 MG/ML 1 ML SYRINGE IVP PRN (17:50)
[2021-09-06 20:04] LABS: Glucose,Whole Blood 313 mg/dL (75-99)
--- NOTE | 2021-09-06 20:53 | P.CONS ---
History of Present Illness - Reason for Consult Consult date: 09/06/21 right leg cellulitis Requesting physician: Rosa Hamilton - Chief Complaint right leg pain and redness x few days - History of Present Illness History of present illness : Patient is 56-year-old male presenting to the ER for evaluation of right lower extremity pain swelling and redness in this patient started having the redness to the right lower extremity along with the swelling few days ago for the patient has been eval by his primary care physician the patient will be treated with oral Bactrim DS with the patient before about 3 days however did not have improvement patient will have increasing swelling redness to the right lower extremity now with the pain is currently the pain to be more of a dull aching to throbbing 5-6 out of 10 no radiation patient did have some purulent drainage from his right leg in view of the nonhealing and slight worsening of his right lower extremity swelling redness and drainage the patient was in the hospital on arrival to the ER the patient was afebrile patient did have a normal white count and creatinine was normal local culture has been obtained he did have a CT of the right lower extremity did not show any drainable abscess patient was started on vancomycin has been admitted to hospital infectious disease was consulted for further management of antibiotic therapy Review of system: CONSTITUTIONAL: Positive for weakness, denies high-grade fever. EYES: No complaint. ENT: No complaint. RESPIRATORY: No complaint. CARDIOVASCULAR: No complaint. GENITOURINARY: No complaint. GASTROINTESTINAL: No complaint. MUSCULOSKELETAL: As per history of present illness SKIN: As per history of present illness PSYCHOLOGIC: No complaint. ENDOCRINE: No complaint. NEUROLOGIC: No complaint. Past medical history : Reviewed, documented below Past surgical history : Reviewed, documented below Social history: Reviewed, documented below Medications: Reviewed, as documented below EXAMINATION: Vital sigans= Reviewed and documented below GENERAL DESCRIPTION: Middle-aged male lying in bed, no distress. No tachypnea or accessory muscle of respiration use. HEENT: Shows Pallor , no scleral icterus. Oral mucous membrane is dry. NECK: Trachea central, no thyromegaly. LUNGS: Unlabored breathing. Clear to auscultation anteriorly. No wheeze or crackle. HEART: S1, S2, regular rate and rhythm. ABDOMEN: Soft, no tenderness , guarding or rigidity EXTREMITIES: Right lower extremity with swelling redness slightly warm and tender to touch no purulent drainage was noticed SKIN: No rash, no masses palpable. NEUROLOGICAL: The patient is awake, alert, oriented x3, mood and affect normal. LABS AND RADIOLOGY: Reviewed results see below Assessment : Patient with acute of right lower extremity cellulitis and some pu rulent drainage failing outpatient oral Bactrim DS therapy more likely from the burden of disease and will need to cover for the gram-positive skin rupert such as strep and staph aureus Plan: 1-Marked area of the redness 2-vancomycin pharmacy to dose with a target trough of 15 while watching kidney function and Vanco trough closely. 3-Marlon wrap for mild compression to keep the swelling down we will follow on clinical condition and cultures to further adjust medication if needed Thank you for this consultation we will follow the patient along with you Past Medical History Past Medical History: Coronary Artery Disease (CAD), Chest Pain / Angina, Heart Failure, Diabetes Mellitus, Hyperlipidemia, Hypertension, Myocardial Infarction ([place]), Pneumonia Additional Past Medical History / Comment(s): lymphedema afsaneh legs, bulging dis cs, carpal tunnel, neuropathy, recent chest pressure Last Myocardial Infarction Date:: 2008 History of Any Multi-Drug Resistant Organisms: None Reported Past Surgical History: Heart Catheterization With Stent Additional Past Surgical History / Comment(s): laser vein removal on left leg, foot surg. as a child, had all teeth removed recently Past Anesthesia/Blood Transfusion Reactions: No Reported Reaction Date of Last Stent Placement:: 2018 Past Psychological History: No Psychological Hx Reported Smoking Status: Current every day smoker Past Alcohol Use History: None Reported Past Drug Use History: None Reported - Past Family History Father Family Medical History: Cancer Additional Family Medical History / Comment(s): from lung ca Mother Family Medical History: Diabetes Mellitus Additional Family Medical History / Comment(s): from complication of diabetes Medications and Allergies Home Medications Medication Instructions Recorded Confirmed Type HYDROcodone/APAP 7.5-325MG [[place] 1 tab PO TID 05/05/16 09/05/21 History 7.5-325] Clopidogrel [Plavix] 75 mg PO DAILY #30 tab 03/21/19 09/05/21 Rx Atorvastatin [Lipitor] 80 mg PO DAILY 04/06/19 09/05/21 History Metoprolol Tartrate [Lopressor] 25 mg PO BID tab 03/18/20 09/05/21 Rx Cyclobenzaprine [Flexeril] 10 mg PO TID PRN 09/05/21 09/05/21 History Furosemide [Lasix] 20 mg PO DAILY PRN 09/05/21 09/05/21 History INSULIN LISPRO (HumaLOG) [humaLOG] See Protocol SQ AC-TID PRN 09/05/21 09/05/21 History Ibuprofen [Motrin] 800 mg PO TID PRN 09/05/21 09/05/21 History Mupirocin 2% Oint [Bactroban 2% 1 applic TOPICAL BID PRN 09/05/21 09/05/21 History Oint] Sulfamethox-Tmp 800-160Mg [Bactrim 1 tab PO Q12HR 09/05/21 09/05/21 History DS 800-160 mg] lisinopriL [Zestril] 5 mg PO DAILY 09/05/21 09/05/21 History metFORMIN HCL ER [Glucophage XR] 500 - 1,000 mg PO BID PRN 09/05/21 09/05/21 History Allergies Allergy/AdvReac Type Severity Reaction Status Date / Time No Known Allergies Allergy Verified 09/05/21 16:54 Physical Exam Vitals: Vital Signs Temp Pulse Pulse Resp BP BP Pulse Ox 09/06/21 07:58 98.2 F 80 17 150/71 97 09/06/21 04:05 98.3 F 81 18 163/84 98 09/06/21 03:28 18 09/06/21 01:57 98.2 F 80 18 161/88 99 09/05/21 16:54 98 F 104 H 18 187/93 99 Intake and Output 09/05/21 09/06/21 09/06/21 22:59 06:59 14:59 Intake Total 500 Balance 500 Intake: Intake, IV Titration 500 Amount Vancomycin 1,750 mg In 500 Sodium Chloride 0.9% 500 ml 500 ml @ 167 mls/hr IVPB ONCE STA Rx#: [id number] Other: # Bowel Movements 0 Weight 117.934 kg 88.5 kg Results CBC & Chem 7: 09/06/21 05:55 09/06/21 05:55 Labs: Abnormal Lab Results - Last 24 Hours (Table) 09/05/21 09/06/21 09/06/21 Range/Units 19:40 05:55 05:55 RBC 4.04 L (4.30-5.90) m/uL Hgb 12.1 L (13.0-17.5) gm/dL Hct 36.8 L (39.0-53.0) % Sodium 135 L 135 L (137-145) mmol/L Chloride 109 H (98-107) mmol/L Glucose 334 H 233 H (74-99) mg/dL POC Glucose (mg/dL) (75-99) mg/dL Calcium 8.2 L (8.4-10.2) mg/dL AST 16 L (17-59) U/L Albumin 3.3 L (3.5-5.0) g/dL 09/06/21 Range/Units 07:23 RBC (4.30-5.90) m/uL Hgb (13.0-17.5) gm/dL Hct (39.0-53.0) % Sodium (137-145) mmol/L Chloride (98-107) mmol/L Glucose (74-99) mg/dL POC Glucose (mg/dL) 270 H (75-99) mg/dL Calcium (8.4-10.2) mg/dL AST (17-59) U/L Albumin (3.5-5.0) g/dL Microbiology - Last 24 Hours (Table) 09/05/21 20:05 Gram Stain - Preliminary Ankle - Right Wound Culture - Preliminary 09/05/21 20:05 Anaerobic Culture - Preliminary Ankle - Right
[2021-09-07] MEDS: HYDROmorphone 1 MG/ML 1 ML SYRINGE IVP PRN ×2 (01:04→12:46)
[2021-09-07] MEDS: HEPARIN SODIUM,PORCINE/PF 5,000 UNIT/0.5 ML SYRINGE SQ SCH ×4 (01:04→22:14)
[2021-09-07] MEDS ORDERED: VANCOMYCIN TROUGH DUE 1 EACH MISC MISCELLANE ONE (07:00)
[2021-09-07 07:05] LABS: African American GFR (CKD) >90 (>60 ml/min/1.73 sqM); Anion Gap 4 mmol/L; Blood Urea Nitrogen 14 mg/dL (9-20); Calcium 8.2 mg/dL (8.4-10.2); Carbon Dioxide 19 mmol/L (22-30); Chloride 111 mmol/L (98-107); Glucose 248 mg/dL (74-99); Non-African American GFR(CKD) 81 (>60 ml/min/1.73 sqM); Potassium 4.2 mmol/L (3.5-5.1); Sodium 134 mmol/L (137-145)
[2021-09-07] MEDS: HYDROcodone/APAP 7.5-325MG 1 EACH TAB PO SCH ×3 (07:28→21:28)
[2021-09-07 07:36] LABS: Glucose,Whole Blood 233 mg/dL (75-99)
[2021-09-07] MEDS: INSULIN ASPART (NovoLOG) 100 UNIT/ML VIAL SQ SCH ×4 (08:15→17:38)
[2021-09-07] MEDS: VANCOMYCIN 1,750 MG in SODIUM CHLORIDE 0.9% 500 ML 500 ML IVPB SCH (08:15)
[2021-09-07] MEDS: INSULIN DETEMIR (LEVEMIR) 100 UNIT/ML SYR SQ SCH (08:15)
[2021-09-07] MEDS: NICOTINE 21MG/24HR PATCH TRANSDERM SCH (08:16)
[2021-09-07] MEDS: lisinopriL 5 MG TAB PO SCH (08:16)
[2021-09-07] MEDS: CLOPIDOGREL 75 MG TAB PO SCH (08:16)
[2021-09-07] MEDS: METOPROLOL TARTRATE 25 MG TAB PO SCH ×2 (08:16→21:28)
[2021-09-07] MEDS: PANTOPRAZOLE 40 MG TABLET PO SCH (08:16)
[2021-09-07] MEDS: ATORVASTATIN 80 MG TAB PO SCH (08:16)
[2021-09-07 09:18] LABS: Basophils # (A) 0.02 X 10*3/uL (0.00-0.10); Basophils % (A) 0.2 %; Eosinophils # (A) 0.08 X 10*3/uL (0.04-0.35); Eosinophils % (A) 0.9 %; HCT 34.2 % (39.6-50.0); HGB 11.2 g/dL (13.0-17.0); Immature Grans, Automated 0.6 %; Lymphocytes # (A) 1.45 X 10*3/uL (0.90-5.00); Lymphocytes % (A) 16.1 %; MCHC 32.7 g/dL (32.0-37.0); MCV 88.6 fL (80.0-97.0); Mean Platelet Volume 10.6 fL (9.5-12.2); Monocytes # (A) 0.44 X 10*3/uL (0.20-1.00); Monocytes % (A) 4.9 %; NRBC Per 100 WBC 0 /100 WBCS (0.0-0.0); Neutrophils # (A) 6.95 X 10*3/uL (1.80-7.70); Neutrophils % (A) 77.3 %; Platelet Count 183 X 10*3/uL (140-440); RBC 3.86 X 10*6/uL (4.40-5.60); RDW 12.5 % (11.5-14.5); WBC 8.99 X 10*3/uL (4.50-10.00)
[2021-09-07 12:19] LABS: Glucose,Whole Blood 311 mg/dL (75-99)
[2021-09-07 13:07] VITALS: BMI 26.4
--- NOTE | 2021-09-07 15:14 | P.PN ---
Subjective Progress Note Date: 09/07/21 This is a 56-year-old gentleman with history of CAD,AK, CABG-2020, cardiac stenting, ischemic cardiomyopathy, hypertension, hyperlipidemia, bilateral lymphedema, diabetes mellitus, nicotine dependence, peripheral vascular disease and multiple other medical issues presented to the ER with worsening right lower extremity/ankle cellulitis failed outpatient treatment with Bactrim. Has not been taking his diuretics. Reporting increased tenderness, redness, edema and purulent drainage. Denies weakness or numbness of affected extremity. Denies any nausea vomiting or diarrhea. Denies any abdominal pain. Denies any fevers or chills. Denies chest pain, palpitations or shortness of breath. Lactate within normal limits .Lower extremity CT reported diffuse subcutaneous edema, no abscess, no fracture ,no osteomyelitis. Moderate plantar and Achilles Heel Spurring. Cultures obtained .Blood sugars poorly controlled, 334 on admission. Afebrile, normal WBC .BUN 13, creatinine 1.01 .Vancomycin initiated. 09-07-21 maintained on IV antibiotics as per infectious disease, cultures in progress. Renal function stable .T-max 99.1, normal WBC. Hyperglycemic, A1c 10.2, further med changes ordered as mentioned below. Pain controlled. Denies chest pain, palpitations or shortness of breath. Denies nausea, vomiting, diarrhea. denies abdominal pain. Objective - Vital Signs Vital signs: Vital Signs Temp 97.8 F 09/07/21 12:28 Pulse 72 09/07/21 12:28 Resp 19 09/07/21 12:28 BP 139/75 09/07/21 12:28 Pulse Ox 98 09/07/21 12:28 Intake & Output 09/06/21 09/07/21 09/07/21 18:59 06:59 18:59 Intake Total 500 500 Balance 500 500 Weight 88.5 kg Intake: Intake, IV Titration 500 500 Amount Vancomycin 1,750 mg In 500 500 Sodium Chloride 0.9% 500 ml 500 ml @ 167 mls/hr IVPB Q12H [facility] Rx#: [id number] Other: Voiding Method Toilet Toilet Toilet - Exam Physical Exam: GENERAL: Alert and oriented 3 ,sitting up at side of bed, no acute distress, Head:Atraumatic, normocephalic. HEENT:Neck is supple, no JVD. Chest: Clear throughout, no crackles, no rhonchi, no wheezes. Cardiac Exam: Normal S1 and S2, no S3 gallop, no murmur. Abdomen: Soft, nontender, no organomegaly,no rebound, no guarding, positive bowel sounds. Extremities: Right lower extremity/ankle cellulitis, Marlon Dressing clean,dry and intact. Neurological Exam: CN 2 through 12 grossly intact, no focal deficits. Skin: No rash ,Warm and dry. - Labs CBC & Chem 7: 09/07/21 06:29 09/07/21 06:29 Labs: Abnormal Lab Results - Last 24 Hours (Table) 09/06/21 09/06/21 09/06/21 Range/Units 05:55 17:21 20:02 RBC (4.40-5.60) X 10*6/uL Hgb (13.0-17.0) g/dL Hct (39.6-50.0) % Immature Gran # (0.00-0.04) X 10*3/uL Sodium (137-145) mmol/L Chloride (98-107) mmol/L Carbon Dioxide (22-30) mmol/L Glucose (74-99) mg/dL POC Glucose (mg/dL) 239 H 313 H (75-99) mg/dL Hemoglobin A1c 10.2 H (0.0-6.0) % Calcium (8.4-10.2) mg/dL 09/07/21 09/07/21 09/07/21 Range/Units 06:29 06:29 07:30 RBC 3.86 L (4.40-5.60) X 10*6/uL Hgb 11.2 L (13.0-17.0) g/dL Hct 34.2 L (39.6-50.0) % Immature Gran # 0.05 H (0.00-0.04) X 10*3/uL Sodium 134 L (137-145) mmol/L Chloride 111 H (98-107) mmol/L Carbon Dioxide 19 L (22-30) mmol/L Glucose 248 H (74-99) mg/dL POC Glucose (mg/dL) 233 H (75-99) mg/dL Hemoglobin A1c (0.0-6.0) % Calcium 8.2 L (8.4-10.2) mg/dL 09/07/21 Range/Units 12:16 RBC (4.40-5.60) X 10*6/uL Hgb (13.0-17.0) g/dL Hct (39.6-50.0) % Immature Gran # (0.00-0.04) X 10*3/uL Sodium (137-145) mmol/L Chloride (98-107) mmol/L Carbon Dioxide (22-30) mmol/L Glucose (74-99) mg/dL POC Glucose (mg/dL) 311 H (75-99) mg/dL Hemoglobin A1c (0.0-6.0) % Calcium (8.4-10.2) mg/dL Microbiology - Last 24 Hours (Table) 09/05/21 19:54 Blood Culture - Preliminary Blood No Growth after 24 hours 09/05/21 19:35 Blood Culture - Preliminary Blood No Growth after 24 hours 09/05/21 20:05 Gram Stain - Preliminary Ankle - Right Wound Culture - Preliminary Assessment and Plan Assessment: Right lower extremity cellulitis, failed outpatient treatment History of bilateral lymphedema Diabetes mellitus type 2, uncontrolled, hyperglycemic, hemoglobin A1c 10.2 Diabetic peripheral neuropathy CAD, history of AK, CABG-2019, cardiac stenting Ischemic cardiomyopathy,Chronic systolic heart failure, EF 45% Hypertension Hyperlipidemia Ongoing nicotine dependence Chronic back pain Plan: Continue on current medication regime ,monitoring and symptomatic treatment. Maintain IV antibiotics as per ID. Cultures finalizing. Hyperglycemic, hemoglobin A1c 10.2, will require further diabetic education in clinic. Diet adjusted ,Lantus added to hs as well as a.m., pre-meal insulin with parameters to hold if Accu-Chek less than 120, ordered in addition to sliding scale .Close monitoring of Accu-Cheks. Smoking cessation reinforced. The impression and plan of care has been dictated as directed. : I performed a history and examination of this patient, discussed the same with the dictator. I agree with the dictator's note ,documented as a scribe. Any additional findings or plans will be noted.
[2021-09-07 17:24] LABS: Glucose,Whole Blood 320 mg/dL (75-99)
[2021-09-07 20:32] LABS: Glucose,Whole Blood 215 mg/dL (75-99)
[2021-09-07] MEDS ORDERED: INSULIN DETEMIR (LEVEMIR) 100 UNIT/ML SYR SQ SCH (21:00)
[2021-09-07] MEDS: VANCOMYCIN 1,500 MG in SODIUM CHLORIDE 0.9% 250 ML IVPB SCH (21:27)
--- NOTE | 2021-09-07 22:16 | P.PN ---
Subjective Progress Note Date: 09/07/21 Principal diagnosis: Right lower extremity cellulitis Patient is a 56-year-old male presenting to the hospital with worsening swelling redness of the right lower extremity concerning for selected is feeling outpatient oral Bactrim DS therapy. On today's evaluation that is 09/07/2021, the patient denies having any fever or any chills, patient pain to the right lower extremity is slightly decreased intensity, the patient denies having any chest pain shortness of breath or cough. no diarrhea Objective - Vital Signs Vital signs: Vital Signs Temp 99.1 F 09/07/21 04:09 Pulse 82 09/07/21 08:12 Resp 16 09/07/21 04:09 BP 129/72 09/07/21 08:12 Pulse Ox 96 09/07/21 04:09 Intake & Output 09/06/21 09/07/21 09/07/21 18:59 06:59 18:59 Intake Total 500 500 Balance 500 500 Intake: Intake, IV Titration 500 500 Amount Vancomycin 1,750 mg In 500 500 Sodium Chloride 0.9% 500 ml 500 ml @ 167 mls/hr IVPB Q12H [facility] Rx#: [id number] Other: Voiding Method Toilet Toilet - Exam General description is a middle-age male lying in bed in no distress. Respiratory system:Unlabored breathing, decreased intensity in breath sounds. No wheeze. Heart S1, S2. Regular rate and rhythm. Abdomen soft, no tenderness.. Right lower extremity is currently dressed no drainage on the dressing - Labs CBC & Chem 7: 09/07/21 06:29 09/07/21 06:29 Labs: Abnormal Lab Results - Last 24 Hours (Table) 09/06/21 09/06/21 09/06/21 Range/Units 05:55 12:14 17:21 Sodium (137-145) mmol/L Chloride (98-107) mmol/L Carbon Dioxide (22-30) mmol/L Glucose (74-99) mg/dL POC Glucose (mg/dL) 188 H 239 H (75-99) mg/dL Hemoglobin A1c 10.2 H (0.0-6.0) % Calcium (8.4-10.2) mg/dL 09/06/21 09/07/21 09/07/21 Range/Units 20:02 06:29 07:30 Sodium 134 L (137-145) mmol/L Chloride 111 H (98-107) mmol/L Carbon Dioxide 19 L (22-30) mmol/L Glucose 248 H (74-99) mg/dL POC Glucose (mg/dL) 313 H 233 H (75-99) mg/dL Hemoglobin A1c (0.0-6.0) % Calcium 8.2 L (8.4-10.2) mg/dL Microbiology - Last 24 Hours (Table) 09/05/21 19:54 Blood Culture - Preliminary Blood No Growth after 24 hours 09/05/21 19:35 Blood Culture - Preliminary Blood No Growth after 24 hours 09/05/21 20:05 Gram Stain - Preliminary Ankle - Right Wound Culture - Preliminary Assessment and Plan (1) Cellulitis of right leg Current Visit: Yes Status: Acute Code(s): L03.115 - CELLULITIS OF RIGHT LOWER LIMB SNOMED Code(s): 473662726 Plan: Patient with a right lower extremity cellulitis and some purulent drainage failing outpatient oral Bactrim DS therapy cultures are currently pending patient to continue the vancomycin while waiting for the culture finalized Time with Patient: Less than 30
[2021-09-08 06:54] LABS: African American GFR (CKD) >90 (>60 ml/min/1.73 sqM); Non-African American GFR(CKD) 83 (>60 ml/min/1.73 sqM)
[2021-09-08 07:51] LABS: Glucose,Whole Blood 232 mg/dL (75-99)
[2021-09-08] MEDS: NICOTINE 21MG/24HR PATCH TRANSDERM SCH (08:00)
[2021-09-08] MEDS: HYDROcodone/APAP 7.5-325MG 1 EACH TAB PO SCH ×2 (08:00→15:46)
[2021-09-08] MEDS: VANCOMYCIN 1,500 MG in SODIUM CHLORIDE 0.9% 250 ML IVPB SCH (08:01)
[2021-09-08] MEDS: HEPARIN SODIUM,PORCINE/PF 5,000 UNIT/0.5 ML SYRINGE SQ SCH ×2 (08:01→15:46)
[2021-09-08] MEDS: CLOPIDOGREL 75 MG TAB PO SCH (08:01)
[2021-09-08] MEDS: lisinopriL 5 MG TAB PO SCH (08:01)
[2021-09-08] MEDS: ATORVASTATIN 80 MG TAB PO SCH (08:01)
[2021-09-08] MEDS: PANTOPRAZOLE 40 MG TABLET PO SCH (08:01)
[2021-09-08] MEDS: METOPROLOL TARTRATE 25 MG TAB PO SCH (08:01)
[2021-09-08] MEDS: INSULIN DETEMIR (LEVEMIR) 100 UNIT/ML SYR SQ SCH (08:02)
[2021-09-08] MEDS: INSULIN ASPART (NovoLOG) 100 UNIT/ML VIAL SQ SCH ×4 (08:02→13:15)
--- NOTE | 2021-09-08 11:46 | CDI ---
Documentation Clarification Form Date: 09/08/2021 11:18:35 AM From: Sabrina Ibanez RN, CCDS Admit Date: 09/05/2021 09:37:00 PM Patient Name: Ji Suarez Visit Number: [id number] Discharge Date: ATTENTION: The Clinical Documentation Specialists (CDI) and [facility] Coding Staff appreciate your assistance in clarifying documentation. Please respond to the clarification below the line at the bottom and electronically sign. The CDI & [facility] Coding staff will review the response and follow-up if needed. Please note: Queries are made part of the Legal Health Record. If you have any questions, please contact the author of this message via ITS. Dr. Alex Quick Cellulitis is documented in the emergency department, H/P and subsequent progress notes. Additional clarification regarding the type of cellulitis is requested. History/risk factors: Diabetes Mellitus, Coronary artery disease, Heart Failure, Hypertension, Lymphedema bilateral legs Clinical Indicators: 56-year-old male present with complaints of a wound located over the right ankle. Treated with Bactrim outpatient by his PCP without improvement.. He has erythema and induration, purulent drainage, located over the anterior, medial, lateral aspect of the right ochoa and ankle. There is 3+ pitting edema bilateral lower extremities. Treatment: Monitor Blood Sugars per orders with sliding scale coverage (SQ AC-TID) Novolog 9units SQ AC TID Levemir 25 U SQ Daily @0700, 15 U SQ HS Lasix 20 MG PO Daily Vancomycin 1,500 MG IVPB Q 12 HRS (PTD) Please clarify the type of cellulitis, if known: [ X ] Cellulitis due to diabetes [ ] Cellulitis due to Lymphedema and due to diabetes [ ] Other, please specify: [ ] Unable to determine (Template Last Revised: October 2020) MTDD
[2021-09-08 12:54] LABS: Glucose,Whole Blood 175 mg/dL (75-99)
--- NOTE | 2021-09-08 13:19 | P.DS ---
Providers Date of admission: 09/05/21 21:37 Expected date of discharge: 09/08/21 Attending physician: Alex Quick Consults: 09/05/21 21:38 Consult Physician Routine Consulting Provider: Mira Peña Consult Reason/Comments: cellulitis Do you want consulting provider notified?: Yes Primary care physician: Alex Quick [facility] Course: Final Diagnoses: Right lower extremity cellulitis, failed outpatient treatment History of bilateral lymphedema Diabetes mellitus type 2, uncontrolled, hyperglycemic, hemoglobin A1c 10.2, recommend further diabetic education outpatient in clinic Diabetic peripheral neuropathy CAD, history of [place], CABG-2019, cardiac stenting Ischemic cardiomyopathy,Chronic systolic heart failure, EF 45% Hypertension Hyperlipidemia Ongoing nicotine dependence Chronic back pain Hospital course:This is a 56-year-old gentleman with history of CAD,AL, CABG- 2019, cardiac stenting, ischemic cardiomyopathy, hypertension, hyperlipidemia, bilateral lymphedema, diabetes mellitus, nicotine dependence, peripheral vascular disease and multiple other medical issues presented to the ER with worsening right lower extremity/ankle cellulitis failed outpatient treatment with Bactrim. Has not been taking his diuretics. Reporting increased tenderness, redness, edema and purulent drainage. Denies weakness or numbness of affected extremity. Denies any nausea vomiting or diarrhea. Denies any abdominal pain. Denies any fevers or chills. Denies chest pain, palpitations or shortness of breath. Lactate within normal limits .Lower extremity CT reported diffuse subcutaneous edema, no abscess, no fracture ,no osteomyelitis. Moderate plantar and Achilles Heel Spurring. Cultures obtained .Blood sugars poorly controlled, 334 on admission. Afebrile, normal WBC .BUN 13, creatinine 1.01 .Vancomycin initiated. 09-07-21 maintained on IV antibiotics as per infectious disease, cultures in progress. Renal function stable .T-max 99.1, normal WBC. Hyperglycemic, A1c 10.2, further med changes ordered as mentioned below. Pain controlled. Denies chest pain, palpitations or shortness of breath. Denies nausea, vomiting, diarrhea. denies abdominal pain. Significant clinical improvement. Long-acting insulin initiated with better control of blood sugars. Patient will be discharged home on Lantus. Recommend further outpatient diabetic education in clinic. Patient will be discharged home today in a stable condition with guarded prognosis pending final culture results, final DC recommendations and clearance per ID. Denies chest pain, palpitations or shortness of breath. The impression and plan of care has been dictated as directed. : I performed a history and examination of this patient, discussed the same with the dictator. I agree with the dictator's note ,documented as a scribe. Any additional findings or plans will be noted. Patient Condition at Discharge: Stable Plan - Discharge Summary New Discharge Prescriptions: New Pantoprazole [Protonix] 40 mg PO AC-BRKFST #30 tab Insulin Glargine [Lantus Vial] 27 unit SQ DAILY #10 ml [place], Insulin Disposable [Bd Ultra-Fine Pen Needle 4mm 32g] 1 needle SQ DIRECTED #120 each Nicotine 21Mg/24Hr Patch [Habitrol] 1 patch TRANSDERM DAILY #30 patch Continue HYDROcodone/APAP 7.5-325MG [[place] 7.5-325] 1 tab PO TID Clopidogrel [Plavix] 75 mg PO DAILY #30 tab Atorvastatin [Lipitor] 80 mg PO DAILY Metoprolol Tartrate [Lopressor] 25 mg PO BID tab metFORMIN HCL ER [Glucophage XR] 500 - 1,000 mg PO BID PRN PRN Reason: Blood Sugar - High lisinopriL [Zestril] 5 mg PO DAILY Ibuprofen [Motrin] 800 mg PO TID PRN PRN Reason: Pain INSULIN LISPRO (HumaLOG) [humaLOG] See Protocol SQ AC-TID PRN PRN Reason: Blood Sugar - High Cyclobenzaprine [Flexeril] 10 mg PO TID PRN PRN Reason: Muscle Pain Furosemide [Lasix] 20 mg PO DAILY PRN PRN Reason: Edema Discontinued Sulfamethox-Tmp 800-160Mg [Bactrim DS 800-160 mg] 1 tab PO Q12HR Mupirocin 2% Oint [Bactroban 2% Oint] 1 applic TOPICAL BID PRN PRN Reason: WOUND DRESSING CHANGE Discharge Medication List HYDROcodone/APAP 7.5-325MG [[place] 7.5-325] 1 tab PO TID 05/05/16 [History] Clopidogrel [Plavix] 75 mg PO DAILY #30 tab 03/21/19 [Rx] Atorvastatin [Lipitor] 80 mg PO DAILY 04/06/19 [History] Metoprolol Tartrate [Lopressor] 25 mg PO BID tab 03/18/20 [Rx] Cyclobenzaprine [Flexeril] 10 mg PO TID PRN 09/05/21 [History] Furosemide [Lasix] 20 mg PO DAILY PRN 09/05/21 [History] INSULIN LISPRO (HumaLOG) [humaLOG] See Protocol SQ AC-TID PRN 09/05/21 [History] Ibuprofen [Motrin] 800 mg PO TID PRN 09/05/21 [History] lisinopriL [Zestril] 5 mg PO DAILY 09/05/21 [History] metFORMIN HCL ER [Glucophage XR] 500 - 1,000 mg PO BID PRN 09/05/21 [History] Insulin Glargine [Lantus Vial] 27 unit SQ DAILY #10 ml 09/08/21 [Rx] [place], Insulin Disposable [Bd Ultra-Fine Pen Needle 4mm 32g] 1 needle SQ DIRECTED #120 each 09/08/21 [Rx] Nicotine 21Mg/24Hr Patch [Habitrol] 1 patch TRANSDERM DAILY #30 patch 09/08/21 [Rx] Pantoprazole [Protonix] 40 mg PO AC-BRKFST #30 tab 09/08/21 [Rx] Follow up Appointment(s)/Referral(s): Alex Quick DO [Primary Care Provider] - 1 Week Activity/Diet/Wound Care/Special Instructions: Antibiotics/labs as per ID
[2021-09-08 15:42] VITALS: BP 147/51; PULSE 68; RESP 18; TEMP 98.4
== END 2021-09-08 17:16 | disposition home or self-care (01) | DRG 638 ==
LOC: EC 16:40 → 5NMEDONC 21:37
PROVIDERS: ADMIT Family Medicine; ATTEND Family Medicine
DX: E11.628 Type 2 diabetes mellitus with other skin complications (principal); L03.115 Cellulitis of right lower limb; I50.22 Chronic systolic (congestive) heart failure; E11.42 Type 2 diabetes mellitus with diabetic polyneuropathy; E11.51 Type 2 diabetes mellitus with diabetic peripheral angiopathy without gangrene; E11.65 Type 2 diabetes mellitus with hyperglycemia; Z20.822 Contact with and (suspected) exposure to COVID-19; E78.5 Hyperlipidemia, unspecified; G89.29 Other chronic pain; F17.210 Nicotine dependence, cigarettes, uncomplicated; I25.5 Ischemic cardiomyopathy; I11.0 Hypertensive heart disease with heart failure; I25.10 Atherosclerotic heart disease of native coronary artery without angina pectoris; I25.2 Old myocardial infarction; Z79.02 Long term (current) use of antithrombotics/antiplatelets; Z79.899 Other long term (current) drug therapy; Z80.1 Family history of malignant neoplasm of trachea, bronchus and lung; Z83.3 Family history of diabetes mellitus; Z91.14 Patient's other noncompliance with medication regimen; Z95.1 Presence of aortocoronary bypass graft; Z95.5 Presence of coronary angioplasty implant and graft
CPT/HCPCS: 36415; 80048; 80053; 80202; 82075; 82565; 83036; 83605; 83735; 85025; 87040; 87070; 87075; 87205; 87635; 96365; 96366; 99284

== ENCOUNTER → 2021-09-30 | Outpatient (CLI) | payer OTHER ==
--- NOTE | 2021-09-30 20:23 | MR ---
EXAMINATION TYPE: MR lumbar spine wo con DATE OF EXAM: 09/30/2021 COMPARISON: MR lumbar spine 12/24/2017 HISTORY: Low back pain for 10 years. TECHNIQUE: Multiplanar, multisequence images of the lumbar spine were acquired without IV contrast. L1-L2: Normal disc appearance without desiccation. No herniation, protrusion or disc bulging. No ca nal stenosis is present. Foramina are patent bilaterally. L2-L3: Normal disc appearance without desiccation. No herniation, protrusion or disc bulging. No ca nal stenosis is present. Foramina are patent bilaterally. L3-L4: Normal disc appearance without desiccation. No herniation, protrusion or disc bulging. No ca nal stenosis is present. Foramina are patent bilaterally. L4-L5: Posterior disc bulge causes anterior mass effect on the thecal sac similar to prior exam. Face t arthropathy with hypertrophy ligamentum flavum causes posterior lateral mass effect on the thecal s ac. Mild left lateral recess stenosis is again noted similar to prior exam L5-S1: There is facet arthropathy change. No disc herniation. Lumbar segments are intact. No paraspinal masses are identified. Conus medullaris has a normal appe arance. Lumbar vertebral bodies show stable height, alignment, bone marrow signal, there is spondylos is with endplate discogenic marrow signal changes. Loss of disc height signal is present at L4-5. No significant spinal stenosis. No significant foraminal encroachment. IMPRESSION: Essentially stable lumbar MRI, degenerative disease and facet arthropathy as described.
== END | disposition home or self-care (01) ==
LOC: RADMRIMAIN 19:37
PROVIDERS: ATTEND Psychiatry & Neurology Neurology
DX: M47.816 Spondylosis without myelopathy or radiculopathy, lumbar region (principal)
CPT/HCPCS: 72148

== ENCOUNTER → 2022-11-07 | Outpatient (CLI) | payer MEDICARE, OTHER ==
--- NOTE | 2022-11-07 14:59 | MR ---
EXAMINATION TYPE: MR shoulder RT wo con DATE OF EXAM: 11/07/2022 1:48 PM COMPARISON: NONE HISTORY: RT SHOULDER PAIN, FELL ON ICE 10-06-22 TECHNIQUE: Multiplanar multispin echo imaging of the right shoulder was performed. FINDINGS: Rotator cuff : There is a full thickness partial tear noted to involve the supraspinatus tendon just distal to the critical zone. Fluid filled gap measures 4.4 mm. There is thickening of the supraspinat us tendon compatible chronic tendinopathy. The remaining constituents of the rotator cuff are intact. Bursa: No bursal effusion or thickening is seen. Musculature: There is no muscular tear, contusion, or atrophy. Acromioclavicular joint : Lateral downsloping of the acromion with subacromial spurring resulting in moderate impingement. Moderate to severe AC joint arthropathy. 1.1 cm subcoracoid ganglion cyst. Osseous structures : There are no fractures or regions of abnormal bone marrow signal intensity. Long biceps tendon : The biceps tendon is normally situated within the bicipital groove. No complete or partial biceps tendon tear is present. Glenohumeral Joint fluid : There is no glenohumeral joint effusion. Cartilage and Bone : No focal hyaline cartilage defects are noted. No Hill-Sachs, reverse Hill-Sachs, or bony [place] lesions are seen. Labrum : There are no SLAP or soft tissue [place] lesions. No paralabral cysts are seen. OTHER FINDINGS : none IMPRESSION: 1. Full thickness partial tear involving the supraspinatus tendon superimposed on changes of chronic tendinopathy.
== END | disposition home or self-care (01) ==
LOC: RADMRIMAIN 13:09
PROVIDERS: ATTEND Orthopaedic Surgery
DX: M75.111 Incomplete rotator cuff tear or rupture of right shoulder, not specified as traumatic (principal); M67.813 Other specified disorders of tendon, right shoulder

== ENCOUNTER 2023-11-09 17:08 | Observation (INO) | payer MEDICARE, OTHER ==
[2023-11-09 17:27] VITALS: RESP 18; TEMP 97.4
[2023-11-09 18:03] VITALS: BP 182/93; PULSE 86
--- NOTE | 2023-11-09 18:03 | ED ---
General Adult HPI - General Chief complaint: Chest Pain Stated complaint: Chest Pain,Hypertension Time Seen by Provider: 11/09/23 17:32 Source: patient, RN notes reviewed, old records reviewed Mode of arrival: ambulatory Limitations: no limitations - History of Present Illness Initial comments: Patient is a 58-year-old male who presents emergency department complaining of chest pain. Has a history of CAD, heart failure, diabetes, chronic lower extremity edema, chronic left lower extremity edema worse than right. States he has been having chest pain for the last 1+ days. States it was worse yesterday and earlier and is currently just a dull pressure sensation located substernally. No radiation. No diaphoresis. No nausea or vomiting. Not worse with movement or palpation. Denies any fevers, chills, cough. Endorses chronic lower extremity edema but states it is better than his typical baseline. Presents for further evaluation at this time. Vital signs within acceptable limits. He is not on blood thinners. - Related Data Home Medications Medication Instructions Recorded Confirmed Atorvastatin [Lipitor] 80 mg PO HS 04/06/19 11/09/23 Cyclobenzaprine [Flexeril] 10 mg PO TID PRN 09/05/21 11/09/23 Furosemide [Lasix] 20 mg PO DAILY 09/05/21 11/09/23 Ibuprofen [Motrin] 800 mg PO TID PRN 09/05/21 11/09/23 metFORMIN HCL ER [Glucophage XR] 1,000 mg PO BID 09/05/21 11/09/23 Aspirin EC [Ecotrin Low Dose] 81 mg PO HS 11/09/23 11/09/23 Clopidogrel [Plavix] 75 mg PO HS 11/09/23 11/09/23 HYDROcodone/APAP 10-325MG [[place] 1 tab PO QID 11/09/23 11/09/23 10-325] Spironolactone [Aldactone] 25 mg PO HS 11/09/23 11/09/23 lisinopriL [Zestril] 20 mg PO DAILY 11/09/23 11/09/23 Previous Rx's Medication Instructions Recorded Metoprolol Tartrate [Lopressor] 25 mg PO BID tab 03/18/20 Allergies Allergy/AdvReac Type Severity Reaction Status Date / Time duloxetine [From Cymbalta] AdvReac Nausea & Verified 11/09/23 18:36 Vomiting Review of Systems ROS Statement: Those systems with pertinent positive or pertinent negative responses have been documented in the HPI. Review of Systems: CONST: Denies fever EYES: Denies blurry vision ENT: Denies nasal congestion C/V: Endorses mild central chest pain. RESP: Denies shortness of breath GI: Denies abdominal pain : Denies dysuria SKIN: Denies rash. MSK: Denies joint pain. NEURO: Denies headache ROS Other: All systems not noted in ROS Statement are negative. Past Medical History Past Medical History: Coronary Artery Disease (CAD), Chest Pain / Angina, Heart Failure, Diabetes Mellitus, Hyperlipidemia, Hypertension, Myocardial Infarction (VA), Pneumonia Additional Past Medical History / Comment(s): lymphedema afsaneh legs, bulging discs, carpal tunnel, neuropathy, recent chest pressure Last Myocardial Infarction Date:: 2008 History of Any Multi-Drug Resistant Organisms: None Reported Past Surgical History: Heart Catheterization With Stent Additional Past Surgical History / Comment(s): laser vein removal on left leg, foot surg. as a child, had all teeth removed recently Past Anesthesia/Blood Transfusion Reactions: No Reported Reaction Date of Last Stent Placement:: 2018 Past Psychological History: No Psychological Hx Reported Smoking Status: Current every day smoker Past Alcohol Use History: None Reported Past Drug Use History: None Reported - Past Family History Father Family Medical History: Cancer Additional Family Medical History / Comment(s): from lung ca Mother Family Medical History: Diabetes Mellitus Additional Family Medical History / Comment(s): from complication of diabetes General Exam - General Exam Comments Initial Comments: General: Appears in no acute distress. HEAD: Normal with no signs of head trauma. EYES: PERRLA, EOMI, conjunctiva normal, no discharge. ENT: Hearing grossly intact, normal oropharynx. RESPIRATORY: Clear breath sounds bilaterally. No wheezes, rales, or rhonchi. C/V: Regular rate and rhythm. S1 and S2 auscultated, no edema, peripheral pulses 2+ and intact throughout ABD: Abd is soft, nontender, nondistended EXT: Normal range of motion, no obvious deformity SKIN: No rashes or lesions observed on exposed skin. NEURO: Alert and oriented x 4. Limitations: no limitations Course Vital Signs 11/09/23 11/09/23 17:19 17:56 Temperature 97.4 F L Pulse Rate 83 86 Pulse Rate [ 86 Child Protective Services Social Worker ] Respiratory 18 18 Rate Blood Pressure 186/97 182/93 O2 Sat by Pulse 98 96 Oximetry Medical Decision Making - Medical Decision Making Was pt. sent in by a medical professional or institution (DOMONIQUE Joseph, ACCOUNT[employer], urgent care, hospital, or correction...) When possible be specific @ -No Did you speak to anyone other than the patient for history (EMS, parent, family, police, friend...)? What history was obtained from this source @ -No Did you review nursing and triage notes (agree or disagree)? Why? @ -I reviewed and agree with nursing and triage notes Were old charts reviewed (outside hosp., previous admission, EMS record, old EKG, old radiological studies, urgent care reports/EKG's, correction records)? Report findings @ -Old charts reviewed Differential Diagnosis (chest pain, altered mental status, abdominal pain women, abdominal pain men, vaginal bleeding, weakness, fever, dyspnea, syncope, headache, dizziness, GI bleed, back pain, seizure, CVA, palpatations, mental health, musculoskeletal)? @ -Differential Chest Pain: Stable Angina, Unstable Angina, STEMI, NSTEMI Aortic Dissection, Pneumothorax, Musculoskeletal, Esophageal Spasm GERD, Cholecystitis, Pancreatitis, Zoster, this is not meant to be an all-inclusive list. EKG interpreted by me (3pts min.). @ -As above X-rays interpreted by me (1pt min.). @ -Chest x-ray reveals no obvious acute cardiopulmonary process. CT interpreted by me (1pt min.). @ -None done U/S interpreted by me (1pt. min.). @ -None done What testing was considered but not performed or refused? (CT, X-rays, U/S, lab s)? Why? @ -None What meds were considered but not given or refused? Why? @ -None Did you discuss the management of the patient with other professionals (professionals i.e. DOMONIQUE Joseph, [employer], lab, RT, psych nurse, social sciences research scientist, grips, teacher, inspectors and regulatory officers, correctional casework specialist)? Give summary @ -Discussed with the admitting team, SANDI Ga of [facility] who accepted the admission. Informed him that he left AMA. Was smoking cessation discussed for >3mins.? @ -No Was critical care preformed (if so, how long)? @ -No Were there social determinants of health that impacted care today? How? (Homelessness, low income, unemployed, alcoholism, drug addiction, transportation, low edu. Level, literacy, decrease access to med. care, [place] [facility], rehab)? @ -No Was there de-escalation of care discussed even if they declined (Discuss DNR or withdrawal of care, Hospice)? DNR status @ -No What co-morbidities impacted this encounter? (DM, HTN, Smoking, COPD, CAD, Cancer, CVA, ARF, Chemo, Hep., AIDS, mental health diagnosis, sleep apnea, morbid obesity)? @ -Chest pain Was patient admitted / discharged? Hospital course, mention meds given and route, prescriptions, significant lab abnormalities, going to OR and other pertinent info. @ -Based on the patient's presentation and physical exam, patient presents emergency department complaining of chest pain. Has a significant cardiac history. We will obtain cardiac labs. States pain is improved. Has been present over a day. Will attempt nitroglycerin for treatment as well as aspirin. Patient was in agreement this plan. Vital signs are within acceptable limits. EKG shows no signs of acute ischemia. Patient's laboratory studies are unremarkable including undetectable troponin. BNP slightly elevated however patient has no symptoms other than the chronic leg edema. Chest x-ray unremarkable. At this time, nitro did nothing for the patient's chest pain. States that is very minimal. I did recommend admission as he does have a moderate heart score. Patient was in agreement this plan. Will continue to trend the troponins. I spoke with the admitting team, al as needed of [facility] who accepted the admission. After admission, patient apparently left AGAINST MEDICAL ADVICE. I was not notified of this. Undiagnosed new problem with uncertain prognosis? @ -No Drug Therapy requiring intensive monitoring for toxicity (Heparin, Nitro, Insulin, Cardizem)? @ -No Were any procedures done? @ -No Diagnosis/symptom? @ -Chest pain Acute, or Chronic, or Acute on Chronic? @ -Acute Uncomplicated (without systemic symptoms) or Complicated (systemic symptoms)? @ -Complicated Side effects of treatment? @ -No Exacerbation, Progression, or Severe Exacerbation? @ -No Poses a threat to life or bodily function? How? (Chest pain, [place], [place], pneumonia, PE, COPD, DKA, ARF, appy, cholecystitis, CVA, Diverticulitis, Homicidal, Suicidal, threat to staff... and all critical care pts) @ -Yes - Lab Data Result diagrams: 11/09/23 18:03 11/09/23 18:03 Lab Results 11/09/23 11/09/23 11/09/23 Range/Units 18:03 18:03 18:03 WBC 9.4 (3.8-10.6) k/uL RBC 5.00 (4.30-5.90) m/uL Hgb 14.8 (13.0-17.5) gm/dL Hct 45.9 (39.0-53.0) % MCV 91.8 (80.0-100.0) fL MCH 29.5 (25.0-35.0) pg MCHC 32.2 (31.0-37.0) g/dL RDW 13.4 (11.5-15.5) % Plt Count 188 (150-450) k/uL MPV 8.4 Neutrophils % 67 % Lymphocytes % 26 % Monocytes % 4 % Eosinophils % 2 % Basophils % 1 % Neutrophils # 6.3 (1.3-7.7) k/uL Lymphocytes # 2.4 (1.0-4.8) k/uL Monocytes # 0.4 (0-1.0) k/uL Eosinophils # 0.2 (0-0.7) k/uL Basophils # 0.1 (0-0.2) k/uL PT 10.1 (10.0-12.5) sec INR 0.9 (<1.2) APTT 23.4 (22.0-30.0) sec Sodium 139 (137-145) mmol/L Potassium 4.7 (3.5-5.1) mmol/L Chloride 110 H (98-107) mmol/L Carbon Dioxide 26 (22-30) mmol/L Anion Gap 3 mmol/L BUN 24 H (9-20) mg/dL Creatinine 0.89 (0.66-1.25) mg/dL Est GFR (CKD-EPI)AfAm >90 (>60 ml/min/1.73 sqM) Est GFR (CKD-EPI)NonAf >90 (>60 ml/min/1.73 sqM) Glucose 193 H (74-99) mg/dL Calcium 8.9 (8.4-10.2) mg/dL Magnesium 1.8 (1.6-2.3) mg/dL Total Bilirubin 0.4 (0.2-1.3) mg/dL AST 18 (17-59) U/L ALT 18 (4-49) U/L Alkaline Phosphatase 89 (38-126) U/L Troponin I (0.000-0.034) ng/mL NT-Pro-B Natriuret Pep 1170 pg/mL Total Protein 6.3 (6.3-8.2) g/dL Albumin 3.8 (3.5-5.0) g/dL 11/09/23 Range/Units 18:03 WBC (3.8-10.6) k/uL RBC (4.30-5.90) m/uL Hgb (13.0-17.5) gm/dL Hct (39.0-53.0) % MCV (80.0-100.0) fL MCH (25.0-35.0) pg MCHC (31.0-37.0) g/dL RDW (11.5-15.5) % Plt Count (150-450) k/uL MPV Neutrophils % % Lymphocytes % % Monocytes % % Eosinophils % % Basophils % % Neutrophils # (1.3-7.7) k/uL Lymphocytes # (1.0-4.8) k/uL Monocytes # (0-1.0) k/uL Eosinophils # (0-0.7) k/uL Basophils # (0-0.2) k/uL PT (10.0-12.5) sec INR (<1.2) APTT (22.0-30.0) sec Sodium (137-145) mmol/L Potassium (3.5-5.1) mmol/L Chloride (98-107) mmol/L Carbon Dioxide (22-30) mmol/L Anion Gap mmol/L BUN (9-20) mg/dL Creatinine (0.66-1.25) mg/dL Est GFR (CKD-EPI)AfAm (>60 ml/min/1.73 sqM) Est GFR (CKD-EPI)NonAf (>60 ml/min/1.73 sqM) Glucose (74-99) mg/dL Calcium (8.4-10.2) mg/dL Magnesium (1.6-2.3) mg/dL Total Bilirubin (0.2-1.3) mg/dL AST (17-59) U/L ALT (4-49) U/L Alkaline Phosphatase (38-126) U/L Troponin I <0.012 (0.000-0.034) ng/mL NT-Pro-B Natriuret Pep pg/mL Total Protein (6.3-8.2) g/dL Albumin (3.5-5.0) g/dL - EKG Data -: EKG Interpreted by Me EKG Comments: 12-lead Electrocardiogram Interpretation Note EKG was reviewed and interpreted by myself. 12-lead ECG performed at 1729 is interpreted by me as revealing normal sinus rhythm at a rate of 77 beats per minute. Left axis deviation. IL interval is 164 ms, QRS duration is 96 ms, QTc is 429 ms.. There were no ST or T wave abnormalities to suggest myocardial ischemia or injury. R wave progression across the precordium was satisfactory. By my interpretation this EKG is non-diagnostic for acute ischemia. Disposition Clinical Impression: Chest pain Disposition: LEFT AGAINST MEDICAL ADVICE Condition: Undetermined Time of Disposition: 18:40
[2023-11-09] MEDS: NITROGLYCERIN SL TABS 0.4 MG TAB SUBLINGUAL STA (18:04)
[2023-11-09] MEDS: ASPIRIN 81 MG PO STA (18:05)
[2023-11-09 18:16] LABS: Basophils # (A) 0.1 k/uL (0-0.2); Basophils % (A) 1 %; Eosinophils # (A) 0.2 k/uL (0-0.7); Eosinophils % (A) 2 %; HCT 45.9 % (39.0-53.0); HGB 14.8 gm/dL (13.0-17.5); Lymphocytes # (A) 2.4 k/uL (1.0-4.8); Lymphocytes % (A) 26 %; MCH 29.5 pg (25.0-35.0); MCHC 32.2 g/dL (31.0-37.0); MCV 91.8 fL (80.0-100.0); Mean Platelet Volume 8.4; Monocytes # (A) 0.4 k/uL (0-1.0); Monocytes % (A) 4 %; Neutrophils # (A) 6.3 k/uL (1.3-7.7); Neutrophils % (A) 67 %; Platelet Count 188 k/uL (150-450); RDW 13.4 % (11.5-15.5); WBC 9.4 k/uL (3.8-10.6)
[2023-11-09 18:25] LABS: ALT 18 U/L (4-49); AST 18 U/L (17-59); African American GFR (CKD) >90 (>60 ml/min/1.73 sqM); Albumin 3.8 g/dL (3.5-5.0); Alkaline Phosphatase 89 U/L (38-126); Anion Gap 3 mmol/L; Blood Urea Nitrogen 24 mg/dL (9-20); Calcium 8.9 mg/dL (8.4-10.2); Carbon Dioxide 26 mmol/L (22-30); Chloride 110 mmol/L (98-107); Glucose 193 mg/dL (74-99); Magnesium 1.8 mg/dL (1.6-2.3); Non-African American GFR(CKD) >90 (>60 ml/min/1.73 sqM); Potassium 4.7 mmol/L (3.5-5.1); Sodium 139 mmol/L (137-145); Total Bilirubin 0.4 mg/dL (0.2-1.3); Total Protein 6.3 g/dL (6.3-8.2)
[2023-11-09 18:26] LABS: INR 0.9 (<1.2); Partial Thromboplastin Time 23.4 sec (22.0-30.0); Prothrombin Time 10.1 sec (10.0-12.5)
[2023-11-09 18:34] LABS: NT-Pro-B-Type Natriuretic Pept 1170 pg/mL
--- NOTE | 2023-11-09 18:34 | XR ---
EXAMINATION TYPE: XR chest 2V DATE OF EXAM: 11/09/2023 6:19 PM CLINICAL INDICATION:Male, 58 years old with history of Chest Pain; [facility] COMPARISON: 03/18/2020 TECHNIQUE: XR chest 2V. Frontal and lateral views of the chest.. FINDINGS: Lines/Tubes/Devices: EKG leads overlie the chest. No indwelling lines are seen. Heart/mediastinum: Heart size upper normal. Stable mild aortic tortuosity. Mediastinal silhouette is unremarkable. Pulmonary vascularity: Not increased, Lungs/Pleura: There is no evidence of pleural effusion, focal consolidation, or pneumothorax. Degene rative changes of the right anterior first rib again project over the right upper lung. Musculoskeletal: No acute osseous abnormality demonstrated in the limits of the exam. Degenerative c hanges of the spine and shoulders. Other findings: Sternotomy wires are present, the top 2 have broken but not significantly displaced. IMPRESSION: No acute cardiopulmonary abnormality.
[2023-11-09] MEDS ORDERED: ONDANSETRON 4 MG/2 ML VIAL IVP PRN (18:53)
[2023-11-09] MEDS ORDERED: ACETAMINOPHEN TAB 325 MG TAB PO PRN (18:53)
[2023-11-09] MEDS ORDERED: NALOXONE 0.4 MG/ML 1 ML VIAL IV PRN (18:53)
[2023-11-09] MEDS ORDERED: IBUPROFEN 800 MG TAB PO PRN (18:55)
[2023-11-09] MEDS ORDERED: CYCLOBENZAPRINE 10 MG TAB PO PRN (18:55)
[2023-11-09] MEDS: HYDROcodone/APAP 10-325MG 1 EACH TAB PO ONE (19:27)
[2023-11-09] MEDS ORDERED: metFORMIN 500 MG TAB PO SCH (21:00)
[2023-11-09] MEDS ORDERED: SPIRONOLACTONE 25 MG TAB PO SCH (21:00)
[2023-11-09] MEDS ORDERED: ASPIRIN 81 MG PO SCH (21:00)
[2023-11-09] MEDS ORDERED: CLOPIDOGREL 75 MG TAB PO SCH (21:00)
[2023-11-09] MEDS ORDERED: ATORVASTATIN 80 MG TAB PO SCH (21:00)
[2023-11-09] MEDS ORDERED: METOPROLOL TARTRATE 25 MG TAB PO SCH (21:00)
[2023-11-09] MEDS ORDERED: HYDROcodone/APAP 10-325MG 1 EACH TAB PO SCH (22:00)
[2023-11-10] MEDS ORDERED: HEPARIN SODIUM,PORCINE 5,000 UNIT/ML 1 ML VIAL SQ SCH
[2023-11-10] MEDS ORDERED: lisinopriL 20 MG TAB PO SCH (09:00)
[2023-11-10] MEDS ORDERED: FUROSEMIDE 20 MG TAB PO SCH (09:00)
== END 2023-11-09 19:33 | disposition left against medical advice (07) ==
LOC: EC 17:08 → 6NMEDSUR 18:54
PROVIDERS: ADMIT Hospitalist; ATTEND Hospitalist
DX: R07.89 Other chest pain (principal); I11.0 Hypertensive heart disease with heart failure; I50.9 Heart failure, unspecified; I25.10 Atherosclerotic heart disease of native coronary artery without angina pectoris; E11.9 Type 2 diabetes mellitus without complications; F17.200 Nicotine dependence, unspecified, uncomplicated; Z79.84 Long term (current) use of oral hypoglycemic drugs; Z79.82 Long term (current) use of aspirin; Z79.02 Long term (current) use of antithrombotics/antiplatelets; Z79.899 Other long term (current) drug therapy; Z88.8 Allergy status to other drugs, medicaments and biological substances; Z53.29 Procedure and treatment not carried out because of patient's decision for other reasons
CPT/HCPCS: 99285; 36415; 93005; 83880; 80053; 83735; 84484; 85025; 85610; 85730; 71046; G0378

== ENCOUNTER → 2024-02-22 | Outpatient (CLI) | payer MEDICARE ==
[2024-02-22 20:43] LABS: Blood Urea Nitrogen 16.4 mg/dL (9.0-27.0); Carbon Dioxide 22.1 mmol/L (21.6-31.8); Chloride 107 mmol/L (96-109); Potassium 4.5 mmol/L (3.5-5.5); Sodium 142 mmol/L (135-145)
[2024-02-23 01:39] LABS: HCT 43.6 % (39.6-50.0); HGB 14.2 g/dL (13.0-17.0); MCH 30.5 pg (27.0-32.0); MCHC 32.6 g/dL (32.0-37.0); MCV 93.8 FL (80.0-97.0); Mean Platelet Volume 12.1 FL (9.5-12.2); NRBC Per 100 WBC 0 X 10*3/uL (0.00-0.01); Platelet Count 159 X 10*3/uL (140-440); RBC 4.65 X 10*6/uL (4.40-5.60); RDW 13.2 % (11.5-14.5); WBC 9.88 X 10*3/uL (4.50-10.00)
== END | disposition home or self-care (01) ==
LOC: LABPAT 15:32
PROVIDERS: ATTEND Internal Medicine Interventional Cardiology
DX: Z01.812 Encounter for preprocedural laboratory examination (principal); I25.10 Atherosclerotic heart disease of native coronary artery without angina pectoris
CPT/HCPCS: 80051; 82565; 84520; 85027

== ENCOUNTER 2024-02-27 12:06 | Day surgery (SDC) | payer MEDICARE ==
[2024-02-26 10:48] VITALS: BMI 33.9
[~2024-02-27 12:06] MED LIST changes: -ALBUMIN HUMAN 25% 50 ML IV ONE; -ALBUMIN HUMAN 5% 500 ML IVPB ONE; +ALPRAZolam 0.25 MG TAB PO PRN; +ALPRAZolam 0.5 MG TAB PO PRN; -ASPIRIN 325 MG TAB PO ONE; -ATORVASTATIN 10 MG TAB PO ONE; -CALCIUM CHLORIDE 100 MG/ML 10 ML SYRINGE IV ONE; -CARDIOPLEGIC SOLN (K+ 16 MEQ/L 1,000 ML with SODIUM BICARB (1 MEQ/ML) 20 ML, LIDOCAINE ... PERFUSION ONE; -CHLORHEXIDINE GLUCONATE 15 ML CUP MUCOUS MEM ONE; -CLEVIDIPINE BUTYRATE 25 MG in EMPTY BAG 1 BAG IV ONE; -HEPARIN SODIUM 1,000 UN/ML (10ML VL) IV ONE; +HEPARIN SODIUM,PORCINE (1 ML) 2,500 UNIT in SODIUM CHLORIDE 0.9% 250 ML IRRIGATION PRN; +HEPARIN SODIUM,PORCINE 10,000 UNIT in SODIUM CHLORIDE 0.9% 1,000 ML IRRIGATION PRN; -HEPARIN SODIUM,PORCINE 5,000 UNIT in SODIUM CHLORIDE 0.9% 500 ML 500 ML IV ONE; -INSULIN REGULAR 100 UNIT in SODIUM CHLORIDE 0.9% 100 ML IV ONE; -LACTATED RINGERS 1,000 ML IV ONE; -MAGNESIUM SULFATE MG 500 MG/ML IV ONE; -MANNITOL 25% 12.5 GM/50 ML VIAL IV ONE; -METOPROLOL TARTRATE 12.5 MG TAB PO ONE; -NITROGLYCERIN SL TABS 0.4 MG TAB SUBLINGUAL ONE; +NITROGLYCERIN SL TABS 0.4 MG TAB SUBLINGUAL PRN; -NITROGLYCERIN-D5W PMX 25 MG/250 ML BTL IV ONE; -NITROGLYCERIN-D5W PMX 50 MG in DEXTROSE/WATER 1 250ML.BAG IV ONE; -NOREPINEPHRINE 4 MG in SODIUM CHLORIDE 0.9% 250 ML IV ONE; -PAPAVERINE 360 MG in SODIUM CHLORIDE 0.9% 90 ML IV ONE; -PHENYLEPHRINE 10 MG/ML VIAL IV ONE; -PHENYLEPHRINE 40 MG in SODIUM CHLORIDE 0.9% 250 ML IV ONE; -PROTAMINE SULFATE 10 MG/ML 25 ML VIAL IV ONE; -PROTAMINE SULFATE 250 MG in EMPTY BAG 1 BAG IV ONE; -SODIUM BICARB 8.4% 50 ML SYR (1 MEQ/ML) IV ONE; -SODIUM CHLORIDE 0.9% 1,000 ML IV ONE; -TRANEXAMIC ACID 2,000 MG in SODIUM CHLORIDE 0.9% 80 ML IV ONE; -ceFAZolin 1,000 MG in SODIUM CHLORIDE 0.9% IRRIGATIO 1,000 ML IRRIGATION ONE; -ceFAZolin 2,000 MG in SODIUM CHLORIDE 0.9% 30 ML IVPB ONE; -propofoL 1,000 MG/100 ML VIAL IV ONE
[2024-02-27 12:45] LABS: Glucose,Whole Blood 194 mg/dL (70-110)
[2024-02-27] MEDS: IV FLUID CONTINUATION 1,000 ML IV ONE (12:47)
[2024-02-27] MEDS: SODIUM CHLORIDE 0.9% 1,000 ML in EMPTY BAG 1 BAG IV SCH ×2 (12:47→16:40)
[2024-02-27] MEDS: ASPIRIN 325 MG TAB PO STA (12:47)
[2024-02-27] MEDS ORDERED: VERAPAMIL 2.5 MG/ML 2 ML AMP ONE (14:02)
[2024-02-27] MEDS ORDERED: LIDOCAINE 1% INJ 10MG/ML (20 ML MDV) ONE (14:02)
[2024-02-27] MEDS: fentaNYL (PF) 50 MCG/1 ML VIAL IVP ONE (14:08)
[2024-02-27] MEDS: LIDOCAINE 1% INJ 10MG/ML (20 ML MDV) SQ ONE (14:08)
[2024-02-27] MEDS: MIDAZOLAM 2 MG/2 ML VIAL IVP ONE ×2 (14:08→14:43)
[2024-02-27] MEDS ORDERED: fentaNYL (PF) 50 MCG/ML 2 ML AMP ONE (14:09)
[2024-02-27] MEDS: HEPARIN SODIUM 1,000 UN/ML (10ML VL) IV ONE ×2 (14:25→14:35)
[2024-02-27] MEDS ORDERED: CLOPIDOGREL 75 MG TAB ONE (14:25)
[2024-02-27] MEDS: CLOPIDOGREL 75 MG TAB PO ONE (14:26)
[2024-02-27] MEDS ORDERED: hydrALAZINE HCL 20 MG/ML 1 ML VIAL ONE (14:40)
[2024-02-27] MEDS: hydrALAZINE HCL 20 MG/ML 1 ML VIAL IV ONE (14:43)
[2024-02-27] MEDS ORDERED: ENALAPRILAT 1.25 MG/ML 1 ML VIAL ONE (14:46)
[2024-02-27] MEDS: ENALAPRILAT 1.25 MG/ML 1 ML VIAL IV ONE (14:50)
[2024-02-27] MEDS ORDERED: ALPRAZolam 0.5 MG TAB PO PRN (15:05)
[2024-02-27] MEDS ORDERED: ATROPINE SULFATE 0.1 MG/ML 10ML SYRINGE IV PRN (15:06)
[2024-02-27] MEDS ORDERED: RX INFO: IV CONTRAST WAS GIVEN 1 EACH MISC MISCELLANE PRN (15:06)
[2024-02-27] MEDS ORDERED: MAG HYDROX/AL HYDROX/SIMETH 30 ML CUP PO PRN (15:06)
[2024-02-27] MEDS ORDERED: NITROGLYCERIN SL TABS 0.4 MG TAB SUBLINGUAL PRN (15:06)
[2024-02-27] MEDS ORDERED: ZOLPIDEM 5 MG TAB PO PRN (15:06)
--- NOTE | 2024-02-27 15:12 | P.PCN ---
Date of Procedure: 02/27/24 Operative Findings: CARDIAC CATHETERIZATION PERFORMING PHYSICIAN: Gumaro Mojica MD, RPVI PROCEDURE PERFORMED: 1. Selective right and left coronary angiogram and BRANDT to LAD and diagonal angiogram and left heart catheterization 2. Successful stenting of the distal and mid RCA using 4.0 x 28 and 4.0 x 12 mm Xience JOHN with adjunctive use of IVUS and lithotripsy balloon 3. Ultrasound-guided access of the right common femoral artery and selective right common femoral artery angiogram INDICATION: Symptomatic 58-year-old gentleman with CAD and prior CABG who underwent a stress test came in to be abnormal COMPLICATION: None APPROACH: Right common femoral artery LEVEL OF SEDATION: Moderate with sedation in length of 54 minutes PROCEDURE DESCRIPTION: After obtaining an informed consent, the patient was brought to cardiac clinical laboratory science professor. Local anesthesia was performed using lidocaine subcutaneously. The right common femoral artery was cannulated using Seldinger technique, the guidewire passed easily, following that we advanced a 6 [place] sheath dilator assembly, the wire and dilator were removed and sheath was flushed. Selective right and left coronary angiogram using a 6-[place]ban[place] JR4 and JL catheters. The BRANDT to LAD and diagonal angiogram was performed using JR4 catheter. Following that we did left heart catheterization using 6-Albanian pigtail catheter. After that I decided to intervene on the RCA with anticoagulation was initiated using heparin with continuous ACT monitoring. Subsequently I did engage the RCA using initially an AL 0.75 guiding catheter but the catheter was going deep so for that reason I changed into a JR4 guiding catheter. The RCA was wired using a run-through wire. Intravascular ultrasound was performed and showed a diameter around 3.5 to 4 mm with calcified vessels. Balloon angioplasty using 3.5 mm noncompliant balloon done but the artery was not open completely and for that reason I decided to go with 3.5 mm lithotripsy balloon. After that attempting advancing 4.0 x 28 mm stent was unsuccessful but successful using GuideLiner. Subsequently I placed another stent proximal to the first 1 and the second 1 was 4.0 x 12 mm. Postdilatation finally was performed using 4.5 mm balloon with final angiogram showing excellent angiographic results with NILSA-3 flow. The procedure was completed with no complication The procedure was completed there was no complication. SELECTIVE CORONARY ANGIOGRAM: The right coronary artery: Large-caliber vessel and a dominant vessel with a tight lesion involving the mid to distal portion and the artery was not bypassed before Left main: Appears to be normal The left circumflex: Large-caliber vessel nondominant vessel with no high-grade stenosis was identified The left anterior descending artery: The LAD in the midportion is subtotally occluded The BRANDT to LAD and diagonal is patent HEMODYNAMICS: The LVEDP was 12 mmHg with no significant gradient across aortic valve CONCLUSION: 1. Subtotally occluded mid LAD. Patent BRANDT to LAD and diagonal 2. Critical disease involving and protected RCA. I did perform successful PCI of the distal and mid RCA as described above 3. Normal left-sided filling pressure POSTPROCEDURE MANAGEMENT: Dual antiplatelet therapy using aspirin and Plavix for at least 6-month
[2024-02-27] MEDS: HEPARIN SODIUM,PORCINE (1 ML) 2,500 UNIT in SODIUM CHLORIDE 0.9% 250 ML IRRIGATION ONE (15:13)
[2024-02-27] MEDS: HEPARIN SODIUM,PORCINE 10,000 UNIT in SODIUM CHLORIDE 0.9% 1,000 ML IRRIGATION ONE (15:13)
[2024-02-27] MEDS: IOPAMIDOL-370 100ML BTL INTRATHECA ONE (15:13)
[2024-02-27] MEDS ORDERED: DEXTROSE 50% SYRINGE 50 ML IVP PRN ×2 (16:06)
[2024-02-27 17:21] LABS: Glucose,Whole Blood 140 mg/dL (70-110)
[2024-02-27] MEDS: INSULIN ASPART (NovoLOG) 100 UNIT/ML VIAL SQ SCH (17:23)
[2024-02-27] MEDS: HYDROcodone/APAP 10-325MG 1 EACH TAB PO SCH (17:29)
[2024-02-27 17:58] LABS: Basophils % (A) 0 %; Eosinophils # (A) 0.2 k/uL (0-0.7); Eosinophils % (A) 2 %; HCT 42.6 % (39.0-53.0); HGB 14.2 gm/dL (13.0-17.5); Lymphocytes # (A) 1.7 k/uL (1.0-4.8); Lymphocytes % (A) 18 %; MCH 30.9 pg (25.0-35.0); MCHC 33.4 g/dL (31.0-37.0); MCV 92.7 fL (80.0-100.0); Mean Platelet Volume 8.6; Monocytes # (A) 0.4 k/uL (0-1.0); Monocytes % (A) 4 %; Neutrophils # (A) 7.3 k/uL (1.3-7.7); Neutrophils % (A) 76 %; Platelet Count 155 k/uL (150-450); RDW 13.1 % (11.5-15.5); WBC 9.5 k/uL (3.8-10.6)
[2024-02-27 18:21] LABS: African American GFR (CKD) >90 (>60 ml/min/1.73 sqM); Anion Gap 4 mmol/L; Blood Urea Nitrogen 15 mg/dL (9-20); Calcium 9.1 mg/dL (8.4-10.2); Carbon Dioxide 25 mmol/L (22-30); Chloride 110 mmol/L (98-107); Glucose 142 mg/dL (74-99); Non-African American GFR(CKD) >90 (>60 ml/min/1.73 sqM); Potassium 4.2 mmol/L (3.5-5.1); Sodium 139 mmol/L (137-145)
[2024-02-27 20:20] LABS: Glucose,Whole Blood 174 mg/dL (70-110)
[2024-02-27] MEDS: DOCUSATE 100 MG CAP PO SCH (20:31)
[2024-02-27] MEDS: ASPIRIN 81 MG PO SCH (20:31)
[2024-02-27] MEDS: ATORVASTATIN 80 MG TAB PO SCH (20:31)
[2024-02-27] MEDS: CLOPIDOGREL 75 MG TAB PO SCH (20:32)
[2024-02-27] MEDS: lisinopriL 20 MG TAB PO SCH (20:32)
[2024-02-27] MEDS: SPIRONOLACTONE 25 MG TAB PO SCH (20:32)
[2024-02-27] MEDS: METOPROLOL TARTRATE 25 MG TAB PO SCH (20:32)
[2024-02-27] MEDS: CYCLOBENZAPRINE 10 MG TAB PO PRN (20:32)
[2024-02-27 23:54] VITALS: TEMP 97.8
[2024-02-28 06:09] LABS: Glucose,Whole Blood 174 mg/dL (70-110)
[2024-02-28 07:08] LABS: African American GFR (CKD) >90 (>60 ml/min/1.73 sqM); Non-African American GFR(CKD) >90 (>60 ml/min/1.73 sqM)
[2024-02-28] MEDS: TAMSULOSIN 0.4 MG CAP.ER.24H PO SCH (07:58)
[2024-02-28 08:02] VITALS: BP 164/75; PULSE 70; RESP 16
--- NOTE | 2024-02-28 12:13 | P.DS ---
Providers Attending physician: Gumaro Mojica Consults: 02/27/24 15:06 Consult Physician Routine Consulting Provider: [facility] Consult Reason/Comments: Post Interventional patient Do you want consulting provider notified?: Already Contacted Primary care physician: Alex Quick [facility] Course: This is a 58-year-old male who underwent cardiac catheterization yesterday with Dr. Mojica. Patient underwent stenting of the distal and mid RCA. Patient is doing well post procedure with no immediate complications. Patient was deemed stable for discharge home today from a cardiac standpoint by Dr. Mojica. Patient to continue dual antiplatelet therapy with aspirin and Plavix for 6 months. Patient to continue high intensity statin with LDL goal less than 70. Please see EMR for further hospital course details. Discharge diagnosis Coronary artery disease with previous CABG, status post cardiac catheterization with stenting of the distal and mid RCA Nurse practitioner note has been reviewed by physician. Signing provider agrees with the documented findings, assessment, and plan of care documented by MANAGER CRITICAL CARE as a scribe. Plan - Discharge Summary Discharge Rx Participant: No New Discharge Prescriptions: Continue Atorvastatin [Lipitor] 80 mg PO HS Metoprolol Tartrate [Lopressor] 25 mg PO BID tab metFORMIN HCL ER [Glucophage XR] 1,000 mg PO BID Ibuprofen [Motrin] 800 mg PO TID PRN PRN Reason: Pain Cyclobenzaprine [Flexeril] 10 mg PO TID PRN PRN Reason: Muscle Pain Aspirin EC [Ecotrin Low Dose] 81 mg PO HS lisinopriL [Zestril] 20 mg PO HS Spironolactone [Aldactone] 25 mg PO HS Clopidogrel [Plavix] 75 mg PO HS Tamsulosin HCl [Flomax] 0.4 mg PO QAM INSULIN LISPRO (humaLOG) [humaLOG] 0 units SQ DIRECTED ALPRAZolam [Xanax] 0.5 mg PO BID PRN PRN Reason: Anxiety HYDROcodone/APAP 10-325MG [[place] 10-325] 1 tab PO QID Stool Softener(Unknown Dose) 3 dose PO HS Discharge Medication List Atorvastatin [Lipitor] 80 mg PO HS 04/06/19 [History] Metoprolol Tartrate [Lopressor] 25 mg PO BID tab 03/18/20 [Rx] Cyclobenzaprine [Flexeril] 10 mg PO TID PRN 09/05/21 [History] Ibuprofen [Motrin] 800 mg PO TID PRN 09/05/21 [History] metFORMIN HCL ER [Glucophage XR] 1,000 mg PO BID 09/05/21 [History] Aspirin EC [Ecotrin Low Dose] 81 mg PO HS 11/09/23 [History] Clopidogrel [Plavix] 75 mg PO HS 11/09/23 [History] HYDROcodone/APAP 10-325MG [[place] 10-325] 1 tab PO QID 11/09/23 [History] Spironolactone [Aldactone] 25 mg PO HS 11/09/23 [History] lisinopriL [Zestril] 20 mg PO HS 11/09/23 [History] ALPRAZolam [Xanax] 0.5 mg PO BID PRN 01/07/24 [History] INSULIN LISPRO (humaLOG) [humaLOG] 0 units SQ DIRECTED 01/07/24 [History] Tamsulosin HCl [Flomax] 0.4 mg PO QAM 01/07/24 [History] Stool Softener(Unknown Dose) 3 dose PO HS 02/26/24 [History] Follow up Appointment(s)/Referral(s): Gumaro Mojica MD [STAFF PHYSICIAN] - 1 Week (Office will call with appointment date and time.) Patient Instructions/Handouts: Heart Catheterization (DC) Discharge Disposition: HOME SELF-CARE
== END 2024-02-28 10:03 | disposition home or self-care (01) ==
LOC: CATHCVL 12:06 → 3SCARD 15:02 → CATHCVL 02-28 10:03
PROVIDERS: ATTEND Internal Medicine Interventional Cardiology
DX: R06.02 Shortness of breath (principal); I25.10 Atherosclerotic heart disease of native coronary artery without angina pectoris
CPT/HCPCS: 92978; 93459; 92972; 80048; 82565; 85025; C9600; C1769 ×5; C1887 ×3; C1894 ×2; C1753; C1874 ×2; C1725 ×2; C1761; J2250; J0360; J1644 ×3; J2001; Q9967; J3010

== ENCOUNTER 2024-03-04 22:27 | Emergency (ER) | payer MEDICARE ==
--- NOTE | 2024-03-04 22:45 | ED ---
Wound/Laceration HPI - General Chief Complaint: Wound/Laceration Stated Complaint: L Foot Laceration Time Seen by Provider: 03/04/24 22:41 Source: patient, RN notes reviewed Mode of arrival: ambulatory Limitations: no limitations - History of Present Illness Initial Comments: This is a 58-year-old male presents emergency department chief complaint of a l aceration to his left great toe. Patient states that he dropped a kitchen knife on the floor and accidentally grazed the top of his foot over the knife. Patient does have peripheral neuropathy and has seizures and numbness of his lower extremities at baseline. Patient is on Plavix. his last tetanus vaccination was within the last 5 years. - Related Data Home Medications Medication Instructions Recorded Confirmed Atorvastatin [Lipitor] 80 mg PO HS 04/06/19 02/27/24 Cyclobenzaprine [Flexeril] 10 mg PO TID PRN 09/05/21 02/27/24 Ibuprofen [Motrin] 800 mg PO TID PRN 09/05/21 02/27/24 metFORMIN HCL ER [Glucophage XR] 1,000 mg PO BID 09/05/21 02/27/24 Aspirin EC [Ecotrin Low Dose] 81 mg PO HS 11/09/23 02/27/24 Clopidogrel [Plavix] 75 mg PO HS 11/09/23 02/27/24 HYDROcodone/APAP 10-325MG [Catharpin 1 tab PO QID 11/09/23 02/27/24 10-325] Spironolactone [Aldactone] 25 mg PO HS 11/09/23 02/27/24 lisinopriL [Zestril] 20 mg PO HS 11/09/23 02/27/24 ALPRAZolam [Xanax] 0.5 mg PO BID PRN 01/07/24 02/27/24 INSULIN LISPRO (humaLOG) [humaLOG] 0 units SQ DIRECTED 01/07/24 02/27/24 Tamsulosin HCl [Flomax] 0.4 mg PO QAM 01/07/24 02/27/24 Stool Softener(Unknown Dose) 3 dose PO HS 02/26/24 02/27/24 Previous Rx's Medication Instructions Recorded Metoprolol Tartrate [Lopressor] 25 mg PO BID tab 03/18/20 Allergies Allergy/AdvReac Type Severity Reaction Status Date / Time duloxetine [From Cymbalta] AdvReac Nausea & Verified 03/04/24 22:38 Vomiting Review of Systems ROS Statement: Those systems with pertinent positive or pertinent negative responses have been documented in the HPI. ROS Other: All systems not noted in ROS Statement are negative. Past Medical History Past Medical History: Coronary Artery Disease (CAD), Chest Pain / Angina, Heart Failure, Diabetes Mellitus, Deep Vein Thrombosis (DVT), Hyperlipidemia, Hypertension, Myocardial Infarction (VT), Vascular Disorder Additional Past Medical History / Comment(s): "My stress test didn't come ou the waty my dr thought it should have.""So I'm having the heart test tomorrow."lymphedema afsaneh legs, bulging discs, carpal tunnel, neuropathy. Type II diabetic IDDM . Hx infection (cellulitis) rt leg and was seeing the wound dr after being in the hosptial for 4 days- 2021 Last Myocardial Infarction Date:: 2008 History of Any Multi-Drug Resistant Organisms: None Reported Past Surgical History: Coronary Bypass/CABG, Heart Catheterization With Stent Additional Past Surgical History / Comment(s): laser vein removal on left leg, foot surg. as a child, had all teeth removed. CABG 2019. "Once a year I have radio frequency ablation to my back." "I've had that done 3 times." Aortic anuerysm-2cm per pt. Past Anesthesia/Blood Transfusion Reactions: No Reported Reaction Additional Past Anesthesia/Blood Transfusion Reaction / Comment(s): "I can't have general anesthesia because I have an aortic anursym." Date of Last Stent Placement:: 2018 Past Psychological History: No Psychological Hx Reported Smoking Status: Current every day smoker Past Alcohol Use History: None Reported Past Drug Use History: None Reported - Past Family History Father Family Medical History: Cancer Additional Family Medical History / Comment(s): from lung ca Mother Family Medical History: Diabetes Mellitus, Deep Vein Thrombosis (DVT) Additional Family Medical History / Comment(s): from complication of diabetes Brother(s) Additional Family Medical History / Comment(s): "My brother from a blood clot that went wear to his brain ,and he had a major stroke ,and it kind him." General Exam Limitations: no limitations General appearance: alert, in no apparent distress Head exam: Present: atraumatic, normocephalic, normal inspection Eye exam: Present: normal appearance, PERRL, EOMI. Absent: scleral icterus, conjunctival injection, periorbital swelling ENT exam: Present: normal exam, mucous membranes moist Neck exam: Present: normal inspection. Absent: tenderness, meningismus, lymphadenopathy Respiratory exam: Present: normal lung sounds bilaterally. Absent: respiratory distress, wheezes, rales, rhonchi, stridor Cardiovascular Exam: Present: regular rate, normal rhythm, normal heart sounds. Absent: systolic murmur, diastolic murmur, rubs, gallop, clicks GI/Abdominal exam: Present: soft, normal bowel sounds. Absent: distended, tenderness, guarding, rebound, rigid Extremities exam: Present: normal inspection, full ROM, normal capillary refill. Absent: tenderness, pedal edema, joint swelling, calf tenderness Left Foot/Toe exam: Present: laceration (2 cm) Neurovascular tendon exam: Present: abnormal cap refill (diminished), sensory deficit (neuropahty at baseline). Absent: no vascular compromise, tendon deficit, extremity cold to touch Back exam: Present: normal inspection Neurological exam: Present: alert, oriented X3, CN II-XII intact Psychiatric exam: Present: normal affect, normal mood Skin exam: Present: warm, dry, intact, normal color. Absent: rash Course Vital Signs 03/04/24 22:34 Temperature 97.4 F L Pulse Rate 90 Respiratory 22 Rate Blood Pressure 181/84 O2 Sat by Pulse 100 Oximetry Procedures - Laceration Laceration #1 Consent Obtained: verbal consent Indication: laceration Site: foot Size (cm): 2 Description: flap Depth: simple, single layer Anesthetic Used: lidocaine 1% Anesthesia Technique: local infiltration Amount (mls): 3 Pre-repair: wound explored, irrigated extensively, deep structures intact Type of Sutures: nylon Size of Sutures: 4-0 Number of Sutures: 5 Technique: simple, interrupted Patient Tolerated Procedure: well, no complications Medical Decision Making - Medical Decision Making Was pt. sent in by a medical professional or institution (, PA, FOURDRINIER MACHINE OPERATOR, urgent care, hospital, or alf...) When possible be specific @ -No Did you speak to anyone other than the patient for history (EMS, parent, family, police, friend...)? What history was obtained from this source @ -No Did you review nursing and triage notes (agree or disagree)? Why? @ -I reviewed and agree with nursing and triage notes Were old charts reviewed (outside hosp., previous admission, EMS record, old E KG, old radiological studies, urgent care reports/EKG's, alf records)? Report findings @ -No old charts were reviewed Differential Diagnosis (chest pain, altered mental status, abdominal pain women, abdominal pain men, vaginal bleeding, weakness, fever, dyspnea, syncope, headache, dizziness, GI bleed, back pain, seizure, CVA, palpatations, mental health, musculoskeletal)? @ -Laceration, skin avulsion, this list is not all inclusive EKG interpreted by me (3pts min.). @ -None X-rays interpreted by me (1pt min.). @ -None done CT interpreted by me (1pt min.). @ -None done U/S interpreted by me (1pt. min.). @ -None done What testing was considered but not performed or refused? (CT, X-rays, U/S, labs)? Why? @ -None What meds were considered but not given or refused? Why? @ -None Did you discuss the management of the patient with other professionals (professionals i.e. , PA, FOURDRINIER MACHINE OPERATOR, lab, RT, psych nurse, social service technician, explosives handler, teacher, aoc director combat plans officer, heel caser)? Give summary @ -No Was smoking cessation discussed for >3mins.? @ -No Was critical care preformed (if so, how long)? @ -No Were there social determinants of health that impacted care today? How? (Homelessness, low income, unemployed, alcoholism, drug addiction, transportation, low edu. Level, literacy, decrease access to med. care, fpc, rehab)? @ -No Was there de-escalation of care discussed even if they declined (Discuss DNR or withdrawal of care, Hospice)? DNR status @ -No What co-morbidities impacted this encounter? (DM, HTN, Smoking, COPD, CAD, Cancer, CVA, ARF, Chemo, Hep., AIDS, mental health diagnosis, sleep apnea, morbid obesity)? @ -None Was patient admitted / discharged? Hospital course, mention meds given and route, prescriptions, significant lab abnormalities, going to OR and other pertinent info. @ -discharge. 58-year-old male with laceration. On examination patient noted to have an avulsion/skin flap to the left great toe measuring approximately 2 cm. Bleeding was controlled on examination. Patient's tetanus vaccination is up-to-date. Patient does have peripheral neuropathy at baseline. Wound was thoroughly cleansed with sterile water and 5 simple interrupted sutures were placed with 4-0 nylon. Have patient return the emergency department report to his primary care provider in the next 10 to 12 days for suture removal. All questions answered at send intact return parameters sam with the patient he is verbalized understanding. Discussed with Dr. Encarnacion Undiagnosed new problem with uncertain prognosis? @ -No Drug Therapy requiring intensive monitoring for toxicity (Heparin, Nitro, Insulin, Cardizem)? @ -No Were any procedures done? @ -wound irrigation, laceration repair Diagnosis/symptom? @ -laceration Acute, or Chronic, or Acute on Chronic? @ -Acute Uncomplicated (without systemic symptoms) or Complicated (systemic symptoms)? @ -Complicated Side effects of treatment? @ -No Exacerbation, Progression, or Severe Exacerbation? @ -No Poses a threat to life or bodily function? How? (Chest pain, USA, VT, pneumonia, PE, COPD, DKA, ARF, appy, cholecystitis, CVA, Diverticulitis, Homicidal, Suicidal, threat to staff... and all critical care pts) @ -No Disposition Clinical Impression: Laceration Disposition: HOME SELF-CARE Condition: Good Instructions (If sedation given, give patient instructions): Care For Your Stitches (ED) Additional Instructions: Return to the emergency department for any new or worsening symptoms. Continue to keep area clean and dry. Return to the emergency room or to your primary care provider in 10 to 12 days for suture removal Is patient prescribed a controlled substance at d/c from ED?: No Referrals: Alex Quick DO [Primary Care Provider] - 1-2 days Time of Disposition: 23:39
[2024-03-04] MEDS: LIDOCAINE 1% INJ 10MG/ML (20 ML MDV) SQ ONE (22:52)
[2024-03-05 00:04] VITALS: BP 157/87; PULSE 85; RESP 18; TEMP 98.2
== END 2024-03-05 00:04 | disposition home or self-care (01) ==
LOC: EC 22:27
DX: S91.112A Laceration without foreign body of left great toe without damage to nail, initial encounter (principal); F17.200 Nicotine dependence, unspecified, uncomplicated; Z88.8 Allergy status to other drugs, medicaments and biological substances; W26.0XXA Contact with knife, initial encounter
CPT/HCPCS: 99282; 12001; J2001